=== PATIENT | male | born 1965 | race Caucasian/White ===

== ENCOUNTER 2019-07-17 01:32 | Day surgery (SDC) | payer BC, SELFPAY ==
[2019-07-15 14:35] VITALS: BMI 33.2
[2019-07-17 07:21] VITALS: BP 133/96; PULSE 84; RESP 14; TEMP 36.1; O2SAT 96
[2019-07-17] MEDS: LACTATED RINGERS 1,000 ML 150 ML IV CONT (07:32)
--- NOTE | 2019-07-17 07:36 | WPDANESEPPF ---
Anes - Initial Pre Proc Eval Procedure: Operation Date: 07/17/19 08:30 Proposed Procedures p Screening Colonoscopy - Devin Berman MD Date/Time: 07/17/19 07:36 Surgeon: Devin Berman MD Pre Op Diagnosis: Neoplasm Screening Patient Data Age: 53 Gender: M Height: 5 ft 9 in Weight: 101.1 kg Last Vital Signs Temp 36.1 C L 07/17/19 07:21 Pulse 84 07/17/19 07:21 Resp 14 07/17/19 07:21 BP 133/96 H 07/17/19 07:21 Pulse Ox 96 07/17/19 07:21 Allergies Allergy/AdvReac Type Severity Reaction Status Date / Time No Known Allergies Allergy Unverified 07/17/19 07:15 Home Medications Medication Instructions Recorded Confirmed Type atenolol 50 mg tablet 50 mg PO BID #180 tablet 04/23/19 07/15/19 Rx pravastatin 40 mg tablet 40 mg PO DAILY #90 tablet 04/23/19 07/15/19 Rx famotidine 20 mg tablet 20 mg PO BID tablet 06/05/19 07/15/19 History Patient hx anesthesia problems: none Family hx anesthesia problems: none PMFSH Past Medical History Medical History Dyslipidemia Essential (primary) hypertension GERD without esophagitis Hypertension Family History Family History Other Diabetes mellitus Family history of coronary artery disease Hypertension Social History Social History Smoking status: Never smoker Second hand tobacco smoke exposure: No Alcohol intake: current Substance use: never Substance use type: does not use Gender identity (if verbalized by the patient): Male Anes - Eval Final PreProcedure Day of Procedure 07/17/19 07:36 Patient weight: obese Heart: regular rate and rhythm Lungs: clear to auscultation Airway: Mallampati scale class II Neurological: alert and oriented Last oral intake: >/= 8 hours ASA classification: III Emergent: no Anesthetic plan: proceed Anesthesia type and monitoring: general GIVS and standard monitoring Informed Consent: The patient's anesthetic plan and its attendant risks and benefits were discussed with the patient/family/POA. Questions were solicited and answers provided to the satisfaction of the patient/family/POA.
--- NOTE | 2019-07-17 08:05 | PM.HPGS ---
History of Present Illness History of Present Illness Consent: Risks, benefits, and alternatives have been discussed and questions answered. Patient agrees to proceed with procedure. Chief complaint: Neoplasm Screening Narrative: Vikas Polk is a 53 year old male here for screening colonoscopy Review of Systems Constitutional: Constitutional: Denies headache(s) and Denies weakness Eyes: Eyes: Denies blurry vision ENT: Reports Normal hearing present, Denies headache(s) and Denies neck pain Cardiovascular: Cardiovascular: Denies chest pain and Denies dyspnea Respiratory: Respiratory: Denies dyspnea Gastrointestinal: Gastrointestinal: Reports no additional gastrointestinal complaints Genitourinary: Genitourinary: Denies dysuria Musculoskeletal: Musculoskeletal: Denies neck pain Integumentary/Breasts: Skin/Breast: Denies dry skin Neurologic: Reports Normal hearing present, Denies headache(s) and Denies weakness Psychiatric: Psychiatric: Denies anxiety Endocrine: Endocrine: Denies change in body appearance Hematologic/Lymphatic: Hematologic/Lymphatic: Denies easy bleeding Allergic/Immunologic: Allergic/Immunologic: Denies urticaria PMFSH Past Medical History Medical History Dyslipidemia Essential (primary) hypertension GERD without esophagitis Hypertension Family History Family History Other Diabetes mellitus Family history of coronary artery disease Hypertension Social History Social History Smoking status: Never smoker Second hand tobacco smoke exposure: No Alcohol intake: current Substance use: never Substance use type: does not use Gender identity (if verbalized by the patient): Male Meds Home Medications and Allergies Home Medications Medication Instructions Recorded Confirmed Type atenolol 50 mg tablet 50 mg PO BID #180 tablet 04/23/19 07/15/19 Rx pravastatin 40 mg tablet 40 mg PO DAILY #90 tablet 04/23/19 07/15/19 Rx famotidine 20 mg tablet 20 mg PO BID tablet 06/05/19 07/15/19 History Allergies Allergy/AdvReac Type Severity Reaction Status Date / Time No Known Allergies Allergy Unverified 07/17/19 07:15 Vital Signs Vital Signs - 24 hr 07/17/19 07:21 Temperature 97.0 F L Pulse Rate 84 Respiratory Rate 14 Blood Pressure 133/96 H Pulse Oximetry 96 Exam Const: General: comfortable and no acute distress HENMT: General nose exam: Normal nares present Eyes: General: appearance normal, both eyes and all related structures Neck: Neck: no JVD Resp: Auscultation: clear to auscultation bilaterally Cardio: Rate: regular rate Rhythm: regular rhythm GI: Inspection: non-distended GI Palp: Yes Soft to palpation Skin: General skin exam: normal color Neuro: General: gait normal Speech: normal speech Extrem: General: normal to inspection Psych: Mental Status: mental status grossly normal Assessment and Plan Assessment and plan (1) Encounter for screening colonoscopy: Code(s): Z12.11 - Encounter for screening for malignant neoplasm of colon Status: Acute Assessment and Plan: will proceed with colonoscopy, first one. (2) Essential (primary) hypertension: Code(s): I10 - Essential (primary) hypertension Status: Acute
[2019-07-17 08:30] VITALS: BP 119/85; PULSE 67; RESP 18; O2SAT 93
[2019-07-17 08:40] VITALS: BP 120/84; PULSE 65; RESP 18; O2SAT 95
[2019-07-17 08:50] VITALS: BP 121/89; PULSE 63; RESP 19; O2SAT 96
== END 2019-07-17 09:01 | disposition home or self-care (01) ==
PROVIDERS: PCP Family Medicine; Visit Provider Internal Medicine Gastroenterology
PROC: 0DJD8ZZ Inspection of Lower Intestinal Tract, Via Natural or Artificial Opening Endoscopic (ICD-10-PCS; CPT 45378; principal; 2019-07-17 08:30)
DX: Z12.11 Encounter for screening for malignant neoplasm of colon (principal); D12.5 Benign neoplasm of sigmoid colon; K57.30 Diverticulosis of large intestine without perforation or abscess without bleeding; K64.8 Other hemorrhoids; I10 Essential (primary) hypertension; E78.5 Hyperlipidemia, unspecified; K21.9 Gastro-esophageal reflux disease without esophagitis; E66.9 Obesity, unspecified; Z68.32 Body mass index [BMI] 32.0-32.9, adult
CPT/HCPCS: 45385; 88305; J2704; J7120

== ENCOUNTER 2020-04-01 01:01 | Outpatient (CLI) | payer BC, SELFPAY ==
[2020-04-01 18:39] LABS: SARS-CoV-2 RNA PCR Negative
== END 2020-04-01 01:02 | disposition home or self-care (01) ==
LOC: ANHCOVIDDT 01:01
PROVIDERS: PCP Family Medicine; Visit Provider Internal Medicine Gastroenterology
DX: Z01.812 Encounter for preprocedural laboratory examination (principal); Z20.828 Contact with and (suspected) exposure to other viral communicable diseases
CPT/HCPCS: 87635; C9803; U0003

== ENCOUNTER 2020-04-03 01:10 | Day surgery (SDC) | payer BC, SELFPAY ==
[2020-03-30 13:30] VITALS: BMI 33.3
[2020-04-03 06:50] VITALS: BP 142/81; PULSE 60; TEMP 36.3; O2SAT 99
[2020-04-03] MEDS: LACTATED RINGERS 1,000 ML 150 ML IV CONT (07:03)
--- NOTE | 2020-04-03 07:22 | WPDANESEPPF ---
Anes - Initial Pre Proc Eval Procedure: Operation Date: 04/03/20 08:00 Proposed Procedures p Esophagogastroduodenoscopy - Caesar Harvey MD Date/Time: 04/03/20 07:22 Surgeon: Caesar Harvey MD Pre Op Diagnosis: Reflux Patient Data Age: 54 Gender: M Height: 5 ft 9 in Weight: 103.2 kg Last Vital Signs Temp 97.3 F L 04/03/20 06:50 Pulse 60 04/03/20 06:50 BP 142/81 H 04/03/20 06:50 Pulse Ox 99 04/03/20 06:50 Allergies Allergy/AdvReac Type Severity Reaction Status Date / Time No Known Allergies Allergy Verified 04/03/20 06:49 Home Medications Medication Instructions Recorded Confirmed Type atenolol 50 mg PO BID 03/30/20 03/30/20 History pravastatin 40 mg PO DAILY 03/30/20 03/30/20 History Patient hx anesthesia problems: none Family hx anesthesia problems: none PMFSH Past Medical History Medical History (Updated 07/17/19 @ 08:06 by Devin Berman MD) Dyslipidemia Encounter for screening colonoscopy Essential (primary) hypertension GERD without esophagitis Hypertension Family History Family History Other Diabetes mellitus Family history of coronary artery disease Hypertension Social History Social History Smoking status: Never smoker Second hand tobacco smoke exposure: No Alcohol intake: current Drinks per week: 3 Substance use: never Substance use type: does not use Living arrangements: with family Gender identity (if verbalized by the patient): Male Spiritual care concerns: No Anes - Eval Final PreProcedure Day of Procedure 04/03/20 07:22 Patient weight: obese Heart: regular rate and rhythm Lungs: clear to auscultation Airway: Mallampati scale class II Neurological: alert and oriented Last oral intake: >/= 8 hours ASA classification: III Emergent: no Anesthetic plan: proceed Anesthesia type and monitoring: general GIVS and standard monitoring Informed Consent: The patient's anesthetic plan and its attendant risks and benefits were discussed with the patient/family/POA. Questions were solicited and answers provided to the satisfaction of the patient/family/POA.
--- NOTE | 2020-04-03 07:32 | PM.HPGS ---
History of Present Illness History of Present Illness Consent: Risks, benefits, and alternatives have been discussed and questions answered. Patient agrees to proceed with procedure. Chief complaint: Reflux Narrative: Vikas Polk is a 54 year old male who has been suffering from acid reflux for about 4 years. He initially had been using ranitidine but when it was taken off the market he was switched to omeprazole. It does relieve his symptoms most of the time. In fact when his medicine ran out 2 weeks ago he began have severe heartburn again. Typically he will have burning in his chest in even regurgitate acid into his throat. Additionally, he often has a tight feeling in his neck with the sensation of a need to swallow. He denies dysphagia. His father young from cancer of the esophagus PMFSH Past Medical History Medical History Dyslipidemia Encounter for screening colonoscopy Essential (primary) hypertension GERD without esophagitis Hypertension Family History Family History Other Diabetes mellitus Family history of coronary artery disease Hypertension Social History Social History Smoking status: Never smoker Second hand tobacco smoke exposure: No Alcohol intake: current Drinks per week: 3 Substance use: never Substance use type: does not use Living arrangements: with family Gender identity (if verbalized by the patient): Male Spiritual care concerns: No Meds Home Medications and Allergies Home Medications Medication Instructions Recorded Confirmed Type atenolol 50 mg PO BID 03/30/20 03/30/20 History pravastatin 40 mg PO DAILY 03/30/20 03/30/20 History Allergies Allergy/AdvReac Type Severity Reaction Status Date / Time No Known Allergies Allergy Verified 04/03/20 06:49 Vital Signs Vital Signs - 24 hr 04/03/20 06:50 Temperature 36.3 C L Pulse Rate 60 Blood Pressure 142/81 H Pulse Oximetry 99 Exam Const: General: alert Orientation/consciousness: patient oriented x3 Resp: Auscultation: clear to auscultation bilaterally Cardio: Rhythm: regular rhythm GI: GI Palp: Yes Soft to palpation and No Tenderness to palpation present (GI) Neuro: General: patient oriented x3 Assessment and Plan Assessment and plan (1) GERD without esophagitis: Code(s): K21.9 - Gastro-esophageal reflux disease without esophagitis Status: Acute Assessment and Plan: EGD with possible biopsy or dilatation or cautery.
[2020-04-03 08:14] VITALS: BP 110/75; PULSE 59; RESP 18; O2SAT 100
[2020-04-03 08:24] VITALS: BP 115/72; PULSE 53; RESP 20; O2SAT 100
[2020-04-03 08:34] VITALS: BP 118/80; PULSE 55; RESP 20; O2SAT 100
== END 2020-04-03 09:08 | disposition home or self-care (01) ==
PROVIDERS: PCP Family Medicine; Visit Provider Internal Medicine Gastroenterology
PROC: 0DJ08ZZ Inspection of Upper Intestinal Tract, Via Natural or Artificial Opening Endoscopic (ICD-10-PCS; CPT 43235; principal; 2020-04-03 08:00)
DX: K21.9 Gastro-esophageal reflux disease without esophagitis (principal); K29.70 Gastritis, unspecified, without bleeding; K22.8 Other specified diseases of esophagus; I10 Essential (primary) hypertension; E78.5 Hyperlipidemia, unspecified; E66.9 Obesity, unspecified; Z68.33 Body mass index [BMI] 33.0-33.9, adult
CPT/HCPCS: 43239; 87081; 88305; J2704; J7120

== ENCOUNTER 2020-05-28 09:54 | Outpatient (NON) | payer BC, SELFPAY ==
[2020-05-29 00:26] LABS: SARS-CoV-2 RNA PCR Negative
== END 2020-05-28 09:55 ==
PROVIDERS: Visit Provider Family Medicine
DX: R05 Cough (principal); Z20.828 Contact with and (suspected) exposure to other viral communicable diseases
CPT/HCPCS: 87635; C9803; U0003

== ENCOUNTER 2020-05-28 11:21 | Outpatient (CLI) | payer BC, SELFPAY ==
--- NOTE | 2020-05-28 | ECG_ITS ---
Measurements Intervals [place] Rate: 62 P: 20 UT: 163 QRS: 36 QRSD: 124 T: 17 QT: 419 QTc: 427 Interpretive Statements SINUS RHYTHM INCOMPLETE RIGHT BUNDLE BRANCH BLOCK BORDERLINE ECG Electronically Signed On 05-28-2020 12:21:41 [employer] by Francisco Javier Thrasher D.O.
--- NOTE | ~2020-05-28 | XR_ITS ---
EXAMINATION: XR chest 2V DATE: 05/28/2020 11:51 INDICATION: Chest pain. Cough and shortness of breath. Chest tightness. TECHNIQUE: Frontal and lateral views of the chest were obtained. COMPARISON: Chest 2 views 09/06/2012 FINDINGS: The chest demonstrates clear lungs without pneumonia, pleural effusion, or pneumothorax. Th e heart size is normal. IMPRESSION: 1. No acute cardiopulmonary disease. Reviewed, dictated and finalized at location B. ERS COMPENSATION LEGAL SECRETARY
== END 2020-05-28 11:22 | disposition home or self-care (01) ==
PROVIDERS: PCP Family Medicine; Visit Provider Family Medicine
DX: R07.9 Chest pain, unspecified (principal); I45.10 Unspecified right bundle-branch block
CPT/HCPCS: 71046; 93005

== ENCOUNTER → 2021-07-01 10:24 | Outpatient (CLI) | payer BC, SELFPAY ==
[2021-07-01 20:40] LABS: SARS-CoV-2 RNA PCR Positive
== END ==
PROVIDERS: PCP Family Medicine; Visit Provider Family Medicine
DX: U07.1 COVID-19 (principal)
CPT/HCPCS: C9803; U0003; U0005

== ENCOUNTER 2022-05-28 12:48 | Inpatient (IN) | payer BC, SELFPAY ==
[2022-05-28] VITALS (28 sets, daily range): BP systolic 115–146; BP diastolic 70–82; PULSE 48–72; RESP 11–21; TEMP 36.6–36.8; O2SAT 94–100; BMI 32.8
--- NOTE | ~2022-05-28 | XR_ITS ---
EXAMINATION: XR chest 2V DATE: 05/28/2022 13:13 INDICATION: Chest pain TECHNIQUE: PA and lateral views of the chest were obtained. COMPARISON: Chest radiograph dated 05/28/2020 FINDINGS: The lungs remain clear with no focal airspace opacities, pulmonary edema, pleural effusion or pneumot horax. The cardiomediastinal silhouette is normal. Mild thoracic spondylosis. IMPRESSION: 1. No acute cardiopulmonary disease. Reviewed, dictated and finalized at location A. NCILIATION ANALYST
--- NOTE | 2022-05-28 12:49 | ECG_ITS ---
Measurements Intervals [place] Rate: 61 P: 21 WV: 151 QRS: 34 QRSD: 116 T: 24 QT: 423 QTc: 427 Interpretive Statements SINUS RHYTHM WITH OCCASIONAL VENTRICULAR PREMATURE COMPLEXES MINOR RV CONDUCTION ABNORMALITY COMPARED TO ECG 05/28/2020 11:57:59 PVC IS NOTED Electronically Signed On 05-29-2022 8:20:35 [employer] by Amador Hicks M.D.
[2022-05-28 13:06] LABS: Basophils Absolute Auto 0.1 K/mm3 (0.0-0.1); Basophils Percent Auto 0.8 % (0.2-1.2); Eosinophils Absolute Auto 0.2 K/mm3 (0-0.3); Eosinophils Percent Auto 2.2 % (0-4.4); Hematocrit 47.8 % (42.0-52.0); Hemoglobin 16.1 g/dL (14.0-18.0); Immature Granulocyte Absolute 0.02 K/mm3 (0.00-0.031); Immature Granulocyte Percent A 0.3 % (0-0.5); Lymphocytes Absolute Auto 2.25 K/mm3 (0.9-3.2); Lymphocytes Percent Auto 31.4 % (18.3-44.2); Mean Corpuscular HGB Conc 33.7 g/dl (32-36); Mean Corpuscular Hemoglobin 32.3 pg (26-34); Mean Platelet Volume 10.6 fl (7.4-10.4); Monocytes Absolute Auto 0.5 K/mm3 (0.1-0.6); Monocytes Percent Auto 6.7 % (2.6-8.5); Neutrophils Absolute Auto 4.2 K/mm3 (1.3-6.7); Neutrophils Percent Auto 58.6 % (45.5-73.1); Platelet Count Result 146 k/mm3 (150-375); Red Blood Count 4.98 M/mm3 (4.6-6.20); Red Cell Distribution Width 14.4 % (11.5-14.5); White Blood Count 7.2 K/mm3 (4.5-10.0)
[2022-05-28] MEDS: ASPIRIN 81 MG CHEWABLE TABLET 324 MG PO (13:16)
[2022-05-28 13:17] LABS: INR 1.2; Partial Thromboplastin Time 30.9 SECONDS (22.3-36.8); Prothrombin Time 14.4 Seconds (11.1-14.7)
[2022-05-28 13:24] LABS: Alanine Aminotransferase 73 U/L (6-50); Albumin Level 4.3 g/dL (3.5-5.1); Alkaline Phosphatase 135 U/L (38-126); Anion Gap 6 mmol/L (8-16); Aspartate Amino Transferase 121 U/L (17-59); Bilirubin,Total 1.2 mg/dL (0.2-1.3); Blood Urea Nitrogen 17 mg/dL (9-20); Calcium 9.2 mg/dL (8.4-10.2); Carbon Dioxide 28 mmol/L (22-30); Chloride 106 mmol/L (98-107); Estimated CRCL calculation 105 ml/min; Estimated Glomerular Filt Rate > 60; Glucose 93 mg/dL (65-110); Lipase 319 U/L (23-300); Potassium 4.1 mmol/L (3.4-5.0); Sodium 140 mmol/L (137-145)
[2022-05-28 13:35] LABS: Troponin I < 0.012 ng/mL (0.000-0.034)
--- NOTE | 2022-05-28 14:01 | ED.CHESTPAIN ---
HPI - Chest Pain General Chief Complaint: Chest Pain Stated Complaint: chest pain Time Seen by Provider: 05/28/22 13:26 Source: patient and RN notes reviewed Mode of arrival: ambulatory Limitations: no limitations History of Present Illness HPI narrative: This is a 56 year old male with history of hyperlipidemia and hypertension who presents for evaluation of chest discomfort. PAtient states around noon he was performing yard work when he developed chest discomfort. He describes burning sensation across his chest. He states his discomfort was associated with sob but denies dizziness or diaphoresis. His pain also radiates to left today. He states his discomfort resolved after rest. He reports having intermittent episodes over the past 1-2 weeks with walking up stairs or exertion but states the discomfort never radiated to his should until today. He denies heart disease. He states he has an ECHO within the past couple of years but denies stress test. He is not aware of family history. Related Data Home Medications Medication Instructions Recorded Confirmed atenolol 50 mg tablet 50 mg PO BID 03/30/20 03/30/20 pravastatin 40 mg tablet 40 mg PO DAILY 03/30/20 03/30/20 Allergies Allergy/AdvReac Type Severity Reaction Status Date / Time No Known Allergies Allergy Verified 04/03/20 06:49 Review of Systems Review of Systems: All systems reviewed & are unremarkable except as noted in HPI and below Constitutional: Constitutional: Denies chills, Denies fatigue and Denies fever(s) Cardiovascular: Cardiovascular: Reports chest pain, Denies rapid heart rate, Reports radiating jaw, neck or arm pain and Denies slow heart rate Respiratory: Respiratory: Denies chest congestion, Denies cough, Reports dyspnea and Denies wheezing Gastrointestinal: Gastrointestinal: Denies abdominal pain, Denies nausea and Denies vomiting Musculoskeletal: Musculoskeletal: Denies back pain Neurologic: Denies syncope, Denies headache(s) and Denies numbness PMFSH Past Medical History Medical History (Updated 05/28/22 @ 16:23 by Su Culver MD) Dyslipidemia Encounter for screening colonoscopy Essential (primary) hypertension GERD without esophagitis Hypertension Surgical History Surgical History (Updated 05/28/22 @ 16:41 by Catrina Henson NP) No pertinent past surgical history Family History Family History Other Diabetes mellitus Family history of coronary artery disease Hypertension Social History Social History (Updated 05/28/22 @ 16:42 by Catrina Henson NP) Social History: [employer] Smoking status: Never smoker Second hand tobacco smoke exposure: No Alcohol intake: current Drinks per week: 3 Alcohol use details: 1 glass of mixed drink w/ Vodka consumed weekly. Substance use: never Substance use type: does not use Gender identity (if verbalized by the patient): Male Spiritual care concerns: No Exam Const: General: no acute distress and alert Nutritional Appearance: well nourished Orientation/consciousness: patient oriented x3 Limitations: no limitations HENMT: Head: normal to inspection Throat: posterior oropharynx normal Eyes: EOM: EOMs intact bilaterally Chest: Chest palpation & inspection: normal inspection of the chest Resp: Effort & Inspection: normal respiratory effort Auscultation: clear to auscultation bilaterally Cardio: Rate: regular rate Rhythm: regular rhythm Heart sounds: no murmurs GI: GI Palp: Yes Soft to palpation, No Tenderness to palpation present (GI), No Guarding due to palpation present (GI) and No Rigid due to palpation Auscultation: normal bowel sounds Back/Spine/Pelvis: Back: no CVA tenderness Skin: General skin exam: normal color Neuro: General: patient oriented x3, moves all extremities and CN's II-XI intact bilaterally Extrem: General: normal to inspection Psych: Mental St
--- NOTE | 2022-05-28 16:31 | PC.NURSE ---
heart healthy food tray ordered
--- NOTE | 2022-05-28 16:38 | PM.IMHP ---
H&P: HPI History of Present Illness Date/Time: 05/28/22 16:38 Chief Complaint: Chest pain Narrative: This is a 56-year-old male patient who has a history of hyperlipidemia and hypertension. The patient has had no prior history of any coronary artery disease. The patient states that around noon he was performing yd work when he developed some chest discomfort. Patient stated he had a burning discomfort across the top of his chest. He did not have any nausea vomiting but he did have shortness of breath. He also had dizziness and diaphoresis. The patient stated that he gets this discomfort quite often with activity. He has had intermittent episodes over the last 1-2 weeks with walking up stairs and exertion. He does not become nauseated but does become diaphoretic at times. Patient was given morphine and nitro as well as aspirin in the emergency room. Chest x-ray was read as no acute cardiopulmonary disease. Troponins are negative x2. Lipase is 319. Influenza A/B and COVID are negative. The patient had a stress test in 2012 which was found to be negative. The patient is being admitted to observation status on the date of service of 05/28/2022. Review of Systems Review of Systems: See HPI All systems reviewed & are unremarkable except as noted in HPI and below Constitutional: Constitutional: Reports as per HPI and Reports no additional constitutional complaints Eyes: Eyes: Reports as per HPI and Reports no additional eye complaints ENT: Reports system reviewed and no additional complaints, except as documented and Reports Normal hearing present Cardiovascular: Cardiovascular: Reports no additional cardiovascular complaints Respiratory: Respiratory: Reports no additional respiratory complaints and Reports no additional respiratory complaints Gastrointestinal: Gastrointestinal: Reports as per HPI and Reports no additional gastrointestinal complaints Musculoskeletal: Musculoskeletal: Reports no additional musculoskeletal complaints Integumentary/Breasts: Skin/Breast: Reports system reviewed and no additional complaints, except as docu and Reports as per HPI Neurologic: Reports system reviewed and no additional complaints, except as documented, Reports as per HPI and Reports Normal hearing present Psychiatric: Psychiatric: Reports no additional psychiatric complaints and Reports as per HPI Endocrine: Endocrine: Reports no additional endocrine complaints Hematologic/Lymphatic: Hematologic/Lymphatic: Reports no additional hematologic/lymphatic complaints Allergic/Immunologic: Allergic/Immunologic: Reports no additional allergic/immunologic complaints PMFSH Past Medical History Medical History Dyslipidemia Encounter for screening colonoscopy Essential (primary) hypertension GERD without esophagitis Hypertension Surgical History Surgical History (Updated 05/28/22 @ 20:39 by Catrina Henson NP) History of esophagogastroduodenoscopy (EGD) Family History Family History Other Diabetes mellitus Family history of coronary artery disease Hypertension Social History Social History (Updated 05/28/22 @ 20:42 by Catrina Henson NP) Social History: The patient lives with his . His is the durable power state's attorney for healthcare. He has 2 children. 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 Lifelong nonsmoker. He denies any marijuana or illicit drugs. Patient has a weekly mixed drink. Code status full code Smoking status: Never smoker Second hand tobacco smoke exposure: No Alcohol intake: current Drinks per week: 3 Alcohol use details: 1 glass of mixed drink w/ Vodka consumed weekly. Substance use: never Substance use type: does not use Gender identity (if verbalized by the patient): Male Spiritual care concerns: No Meds Home Medications and Allergies Home
[2022-05-28 16:50] LABS: Troponin I < 0.012 ng/mL (0.000-0.034)
[2022-05-28 16:59] LABS: Influenza A QL RT-PCR Negative (Negative); Influenza B QL RT-PCR Negative (Negative); SARS-CoV-2 RNA PCR Negative
[2022-05-28 19:44] LABS: Troponin I < 0.012 ng/mL (0.000-0.034)
[2022-05-28] MEDS: PANTOPRAZOLE SODIUM IV 40 MG VIAL IV PUSH (23:10)
[2022-05-29] VITALS (10 sets, daily range): BP systolic 120–131; BP diastolic 75–82; PULSE 49–70; RESP 16–18; TEMP 35.7–36.6; O2SAT 97–98
[2022-05-29 06:14] LABS: Basophils Percent Auto 0.9 % (0.2-1.2); Eosinophils Absolute Auto 0.1 K/mm3 (0-0.3); Eosinophils Percent Auto 3.2 % (0-4.4); Hematocrit 46.9 % (42.0-52.0); Hemoglobin 15.6 g/dL (14.0-18.0); Immature Platelet Fraction Pct 4.7 % (0.9-11.2); Lymphocytes Absolute Auto 1.68 K/mm3 (0.9-3.2); Mean Corpuscular HGB Conc 33.3 g/dl (32-36); Mean Corpuscular Hemoglobin 32.6 pg (26-34); Mean Corpuscular Volume 98.1 fl (80-100); Mean Platelet Volume 10.7 fl (7.4-10.4); Monocytes Absolute Auto 0.3 K/mm3 (0.1-0.6); Monocytes Percent Auto 6.7 % (2.6-8.5); Neutrophils Absolute Auto 2.2 K/mm3 (1.3-6.7); Neutrophils Percent Auto 50.2 % (45.5-73.1); Platelet Count Result 111 k/mm3 (150-375); Red Blood Count 4.78 M/mm3 (4.6-6.20); Red Cell Distribution Width 14.5 % (11.5-14.5); White Blood Count 4.3 K/mm3 (4.5-10.0)
[2022-05-29 06:32] LABS: Alanine Aminotransferase 60 U/L (6-50); Albumin Level 3.8 g/dL (3.5-5.1); Alkaline Phosphatase 124 U/L (38-126); Anion Gap 4 mmol/L (8-16); Aspartate Amino Transferase 95 U/L (17-59); Bilirubin,Total 1.4 mg/dL (0.2-1.3); Blood Urea Nitrogen 16 mg/dL (9-20); Calcium 8.6 mg/dL (8.4-10.2); Carbon Dioxide 28 mmol/L (22-30); Chloride 106 mmol/L (98-107); Estimated CRCL calculation 95 ml/min; Estimated Glomerular Filt Rate > 60; Glucose 88 mg/dL (65-110); Lipase 224 U/L (23-300); Magnesium 2.2 mg/dL (1.6-2.3); Sodium 138 mmol/L (137-145)
[2022-05-29] MEDS: PANTOPRAZOLE SODIUM IV 40 MG VIAL IV PUSH ×2 (08:45→20:16)
[2022-05-29] MEDS: ENOXAPARIN 40 MG/0.4 ML SYRINGE SUB-Q (08:45)
--- NOTE | 2022-05-29 11:40 | PM.CNCAR ---
Assessment and Plan Assessment and plan (1) Chest pain: Code(s): R07.9 - Chest pain, unspecified Status: Acute Plan This is a 56-year-old man with no previous history of coronary artery disease presenting with the onset of typical angina pectoris for about 2 weeks or so. Risk factors of course are hypertension and dyslipidemia both of which he says are under good control. He should undergo diagnostic testing for and coronary disease. Given the typical nature of his symptoms I would recommend an angiogram. The procedure and its details and risks were discussed with the patient he is agreeable and we will schedule this for tomorrow likely in the afternoon Amador Hicks MD [facility] History of Present Illness History of Present Illness Consult date/time: 05/29/22 11:40 Reason For Visit: Stable Angina Narrative: This is a 56-year-old man I am seeing at the request of the hospitalist because of chest pain. The patient was seen in the emergency room yesterday evening and then admitted to the hospital for further evaluation and management. He has no prior history of coronary artery disease or any cardiac problems and I have not seen him in the past. He reports that for about 2-3 weeks he has noticed the onset of exertional chest discomfort when he tries to carry on moderate or more vigorous activity sometimes with more mild activity levels. Describes a retrosternal burning sensation that tends to resolve fairly quickly with a couple of minutes of rest. The symptoms have not occurred at rest or with minimal activity. Yesterday he was outside in his yd putting up some Parris lights, [place]en decorations climbing up and down some ladders had this discomfort he stopped what he was doing and decided that he should come to the hospital for evaluation. He does not have any symptoms of palpitations exertional dyspnea orthopnea PND edema or palpitations. His 12 lead electrocardiogram and troponin levels are normal. He has a history of hypertension and dyslipidemia no history of diabetes no family history of coronary disease that he can recall. Both of his parents at a young age his father of a malignancy his mother of a intracerebral hemorrhage. He is a nonsmoker. 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 Review of Systems Constitutional: Constitutional: Reports no additional constitutional complaints Eyes: Eyes: Reports no additional eye complaints ENT: Reports system reviewed and no additional complaints, except as documented Cardiovascular: Cardiovascular: Reports as per HPI Respiratory: Respiratory: Reports no additional respiratory complaints Gastrointestinal: Gastrointestinal: Reports no additional gastrointestinal complaints Musculoskeletal: Musculoskeletal: Reports no additional musculoskeletal complaints Integumentary/Breasts: Skin/Breast: Reports system reviewed and no additional complaints, except as docu Neurologic: Reports system reviewed and no additional complaints, except as documented Endocrine: Endocrine: Reports no additional endocrine complaints Hematologic/Lymphatic: Hematologic/Lymphatic: Reports no additional hematologic/lymphatic complaints Allergic/Immunologic: Allergic/Immunologic: Reports no additional allergic/immunologic complaints PMFSH Past Medical History Medical History Dyslipidemia Encounter for screening colonoscopy Essential (primary) hypertension GERD without esophagitis Hypertension Surgical History Surgical History (Updated 05/28/22 @ 20:39 by Catrina Henson NP) History of esophagogastroduodenoscopy (EGD) Family History Family History Other Diabetes mellitus Family history of coronary artery disease Hypertension Social History Social History (Updated 05/28/22 @ 20:42 by Catrian Henson NP) Social History: The patient lives wit
--- NOTE | 2022-05-29 14:47 | PM.IMPN ---
Progress Note: A&P Assessment and Plan (1) Chest pain: Code(s): R07.9 - Chest pain, unspecified Status: Acute Assessment and Plan: -the patient's troponin are negative x2 -the patient has discomfort with exertion. -the patient had a stress test in 2012 which was negative. -the patient stated that for the last week or 2 with any exertion he has had the burning sensation across his chest. -chest x-ray shows no acute cardiopulmonary disease. -the ED provider did consult Cardiology. -the patient was started on a daily aspirin. The patient is already on atenolol and pravastatin. -an echo has been ordered for tomorrow. -I did not order a stress test as it sounds like the patient is having chest pain with exertion. 05/29/2022 interval history: 56-year-old male presented with complaint of exertional chest for 2 weeks he presented emergency depart further evaluation 3 sets of cardiac enzymes are negative patient seen by Cardiology recommended patient will benefit with cardiac catheterization to further evaluate, will follow-up and further recommendation to follow (2) Essential (primary) hypertension: Code(s): I10 - Essential (primary) hypertension Status: Acute Assessment and Plan: Continue with atenolol (3) GERD without esophagitis: Code(s): K21.9 - Gastro-esophageal reflux disease without esophagitis Status: Acute Assessment and Plan: IV Protonix -the patient has had EGDs in the past that show gastritis. (4) Dyslipidemia: Code(s): E78.5 - Hyperlipidemia, unspecified Status: Acute Assessment and Plan: -continue with pravastatin Subjective Date/time seen: 05/29/22 14:47 Chest pain HPI-Narrative: This is a 56-year-old male patient who has a history of hyperlipidemia and hypertension.? The patient has had no prior history of any coronary artery disease.? The patient states that around noon he was performing yd work when he developed some chest discomfort.? Patient stated he had a burning discomfort across the top of his chest.? He did not have any nausea vomiting but he did have shortness of breath.? He also had dizziness and diaphoresis.? The patient stated that he gets this discomfort quite often with activity.? He has had intermittent episodes over the last 1-2 weeks with walking up stairs and exertion.? He does not become nauseated but does become diaphoretic at times.? Patient was given morphine and nitro as well as aspirin in the emergency room.? Chest x-ray was read as no acute cardiopulmonary disease.? Troponins are negative x2.? Lipase is 319.? Influenza A/B and COVID are negative.? The patient had a stress test in 2012 which was found to be negative.? The patient is being admitted to observation status on the date of service of 05/28/2022. 05/29/2022 interval history: 56-year-old male presented with complaint of exertional chest for 2 weeks he presented emergency depart further evaluation 3 sets of cardiac enzymes are negative patient seen by Cardiology recommended patient will benefit with cardiac catheterization to further evaluate, will follow-up and further recommendation to follow Review of Systems Review of Systems: All systems reviewed & are unremarkable except as noted in HPI and below Exam Narrative: Patient is comfortable, NAD HEENT: eyes are clear and none icteric LUNGS:CTA HEART: RR S1S2 ABD: BS+, Soft and nontender Lower extremities: no edema SKIN: nonjaundiced Neuro: grossly intact. Objective Data Vital Signs Vital Signs: Vital Signs - 24 hr 05/28/22 14:53 05/28/22 15:06 05/28/22 15:26 Temperature Pulse Rate 61 63 51 L Respiratory Rate 18 16 14 Blood Pressure Pulse Oximetry 95 96 96 Oxygen Delivery 05/28/22 15:41 05/28/22 15:45 05/28/22 15:46 Temperature Pulse Rate 56 L 53 L 55 L Respiratory Rate 18 11 L 13 Blood Pressure 124/73 Pulse Oximetry 97 96 96 Oxygen Delivery 05/28/22 16:06 05/19
[2022-05-30] VITALS (26 sets, daily range): BP systolic 119–148; BP diastolic 75–91; PULSE 57–76; RESP 12–21; TEMP 36.6–37; O2SAT 95–98
--- NOTE | 2022-05-30 06:00 | ECHO_ITS ---
Patient Info Name: Vikas Polk Age: 56 years : 1965 Gender: Male Ht: 69 in Wt: 222 lbs BSA: 2.25 m2 HR: 79 bpm BP: 119 / 76 mmHg Heart Rhythm: Sinus Rhythm Technical Quality: Good Exam Date: 05/30/2022 8:59 AM Exam Location: [facility] Patient Status: Inpatient Admit Date: 05/29/2022 Staff Ordering Physician: Su Culver MD Equipment Planner: Mahi Gan RDCS Attending Provider: Joshua Reynolds MD Referring Physician: Palomo WHITE; Exam Type: CA echo doppler color flow Study Info Indications R07.9 - Chest pain, unspecified I20.9 - Angina pectoris, unspecified Complete two-dimensional, color flow and Doppler transthoracic echocardiogram is performed. Summary 1. Complete two-dimensional, color flow and Doppler transthoracic echocardiogram is performed. 2. Normal left ventricular size thickness and systolic function with grade 1 diastolic noncompliance. 3. Mildly enlarged left atrium. 4. Trivial amount of mitral regurgitation. Left Ventricle Left ventricular chamber dimension is normal. Left ventricular systolic function is normal, estimated at 60-65%. The left ventricular diastolic function is normal. Right Ventricle Right ventricular chamber dimension is normal. Left Atria Left atrial chamber dimension is mildly enlarged. Right Atria Right atrial chamber dimension is normal. Aortic Valve The aortic valve is normal. Pulmonic Valve The pulmonic valve is normal. Mitral Valve The mitral valve has normal leaflets. There is trace mitral valve regurgitation. Tricuspid Valve The tricuspid valve leaflets are normal. Pericardium/Pleural The pericardium appears normal. Aorta The aortic root size at the sinus of Valsalva is normal. Left Ventricular Outflow Tract Name Value Normal LVOT 2D LVOT Diameter 2.3 cm LVOT Doppler LVOT Peak Gradient 3 mmHg LVOT Mean Gradient 1 mmHg LVOT VTI 19 cm LVOT VTI/AV VTI Ratio 0.8 LVOT Stroke Volume 81 ml Pulmonic Valve Name Value Normal RVOT Doppler RVOT Peak Gradient 2 mmHg PV Doppler PV Peak Gradient 7 mmHg Mitral Valve Name Value Normal MV Doppler MV Decel Cataño 468 cm/s2 MV PHT 43 ms MV Area (PHT) 5.1 cm2 4.0-5.0 MV Diastolic Function
[2022-05-30] MEDS: ASPIRIN 81 MG CHEWABLE TABLET PO (08:38)
[2022-05-30] MEDS: PANTOPRAZOLE SODIUM IV 40 MG VIAL IV PUSH ×2 (08:39→20:14)
[2022-05-30] MEDS: atenoloL 50 MG TABLET PO ×2 (08:39→17:11)
[2022-05-30 08:55] LABS: Hematocrit 49.6 % (42.0-52.0); Hemoglobin 16.4 g/dL (14.0-18.0); Immature Platelet Fraction Pct 4.4 % (0.9-11.2); Mean Corpuscular HGB Conc 33.1 g/dl (32-36); Mean Corpuscular Hemoglobin 32.3 pg (26-34); Mean Corpuscular Volume 97.6 fl (80-100); Mean Platelet Volume 10.1 fl (7.4-10.4); Platelet Count Result 117 k/mm3 (150-375); Red Blood Count 5.08 M/mm3 (4.6-6.20); Red Cell Distribution Width 14.3 % (11.5-14.5); White Blood Count 4.3 K/mm3 (4.5-10.0)
[2022-05-30 08:58] LABS: Anion Gap 5 mmol/L (8-16); Blood Urea Nitrogen 15 mg/dL (9-20); Calcium 8.8 mg/dL (8.4-10.2); Carbon Dioxide 28 mmol/L (22-30); Chloride 107 mmol/L (98-107); Estimated CRCL calculation 95 ml/min; Estimated Glomerular Filt Rate > 60; Glucose 98 mg/dL (65-110); Magnesium 2.2 mg/dL (1.6-2.3); Potassium 4.1 mmol/L (3.4-5.0); Sodium 140 mmol/L (137-145)
--- NOTE | 2022-05-30 11:36 | WPDMODSED ---
Moderate Sedation Note-Pt Data Patient Data Diagnosis: exertional chest pain typical of angina Present Complaint: exertional chest pain Procedure to be performed/Plan: left heart catheterization Allergies Allergy/AdvReac Type Severity Reaction Status Date / Time No Known Allergies Allergy Verified 04/03/20 06:49 Home Medications Medication Instructions Recorded Confirmed Type atenolol 50 mg tablet 50 mg PO BID 03/30/20 05/28/22 History pravastatin 40 mg tablet 40 mg PO DAILY 03/30/20 05/28/22 History losartan 50 mg tablet 50 mg PO QAM 05/28/22 05/28/22 History omeprazole 40 mg capsule,delayed 40 mg PO QAM 05/28/22 05/28/22 History release Current Medications: Active Medications Aspirin (Aspirin 81 Mg Chewable Tablet) 81 mg PO DAILY@0800 [facility] Last Admin: 05/30/22 08:38 Dose: 81 mg Atenolol (Atenolol 50 Mg Tablet) 50 mg PO BID [facility] Last Admin: 05/30/22 08:39 Dose: 50 mg Enoxaparin Sodium (Enoxaparin 40 Mg/0.4 Ml Syringe) 40 mg SUB-Q DAILY [facility] Last Admin: 05/30/22 08:35 Dose: Not Given Losartan Potassium (Losartan Potassium 50 Mg Tablet) 50 mg PO QPM [facility] Morphine Sulfate (Morphine Sulfate (*Crx) 4 Mg/Ml Inj) 4 mg IV PUSH Q2H PRN PRN Reason: Pain Rated 7-10 Nitroglycerin (Nitroglycerin Sl 0.4 Mg Tablet) 0.4 mg SUBLINGUAL Q5MIN PRN PRN Reason: Chest Pain Pantoprazole Sodium (Pantoprazole Sodium Iv 40 Mg Vial) 40 mg IV PUSH Q12HR [facility] Last Admin: 05/30/22 08:39 Dose: 40 mg Perflutren Lipid Microsphere (Perflutren Lipid Microspheres 1.5 Ml Vial Diluted To 10 Ml Total Volume) 0 ml IV PUSH ONCE PRN; Protocol PRN Reason: adequate visualization Stop: 05/30/22 16:11 Pravastatin Sodium (Pravastatin Sodium 20 Mg Tablet) 40 mg PO QPM [facility] Sedation/Anesthesia: No previous sedation/anesthesia problems (including family history). [facility] Past Medical History Medical History Dyslipidemia Encounter for screening colonoscopy Essential (primary) hypertension GERD without esophagitis Hypertension Surgical History Surgical History (Updated 05/28/22 @ 20:39 by Catrina Henson NP) History of esophagogastroduodenoscopy (EGD) Family History Family History Other Diabetes mellitus Family history of coronary artery disease Hypertension Social History Social History (Updated 05/28/22 @ 20:42 by Catrina Henson NP) Social History: The patient lives with his . His is the durable power network consultant for healthcare. He has 2 children. 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 Lifelong nonsmoker. He denies any marijuana or illicit drugs. Patient has a weekly mixed drink. Code status full code Smoking status: Never smoker Second hand tobacco smoke exposure: No Alcohol intake: current Drinks per week: 3 Alcohol use details: 1 glass of mixed drink w/ Vodka consumed weekly. Substance use: never Substance use type: does not use Lack of Transportation: No Lack of Food: Never True Current Housing: I Have Housing Concerned About Future Housing: No Difficulty Paying Gas/Electric Bills: No Difficulty Paying for Meds: No Currently Unemployed: No Education: High School Diploma/GED Difficulty w/ Childcare or Family Care: No Gender identity (if verbalized by the patient): Male Spiritual care concerns: No Mod Sed Physical Exam Physical Exam Pre Procedural Exam: Normal: Throat, Airway, Lungs, Heart Size, Heart Rate, Heart Rhythm, Neuro Exam and Extremities and Variation: Appearance ( overweight white male no apparent distress) Hours since solid foods: 12 Hours since liquid intake: 12 Mallampati Classification: class II Internal Medicine - PN: Obj Da Vital Signs Vital Signs: Vital Signs - 24 hr 05/29/22 12:00 05/29/22 14:03 05/29/22 16:14 Temperature 35.7 C L Pulse Rate 69 62 57 L Respiratory Rate 16 Blood Pressur
--- NOTE | 2022-05-30 12:43 | ECG_ITS ---
Measurements Intervals [place] Rate: 57 P: 12 IN: 168 QRS: 18 QRSD: 117 T: 3 QT: 447 QTc: 438 Interpretive Statements SINUS BRADYCARDIA WITH OCCASIONAL VENTRICULAR PREMATURE COMPLEXES MINOR RV CONDUCTION ABNORMALITY COMPARED TO ECG 05/28/2022 12:52:31 SINUS BRADYCARDIA NOW PRESENT OTHERWISE NO SIGNIFICANT DIFFERENCE Electronically Signed On 05-30-2022 15:15:18 [employer]PER[employer] by Amador Hicks M.D.
--- NOTE | 2022-05-30 12:46 | WPDCARDPROC ---
Cardiac Cath Procedure Note Date of procedure:: 05/30/22 Performing physician:: Amador Hicks MD Indication:: exertional chest pain typical of angina Brief clinical history:: this is a 56-year-old man without previous cardiac history who enters the hospital with a recent onset of exertional angina typical by history. He has history of hypertension and dyslipidemia which are well controlled medically. Procedure Procedure performed:: Left ventriculogram coronary angiogram PCI (LUPE) to distal right coronary artery Sedation/Medication given:: fentanyl 50 mg Versed 2 mg case start time 1203 case end time 12:34 p.m. sedation provided Martha Guido RN trained observer Access site:: right femoral artery Estimated blood loss:: 25 cc Procedure note:: patient was brought to the cardiac catheterization lab in postabsorptive state where the right femoral triangle was prepared and draped in the normal fashion. Anesthesia was provided with 1% lidocaine infiltrated locally. Using the modified Seldinger technique a 5 Latvian sheath was placed into the right femoral artery after this left heart catheterization was carried out. I used a 5 Latvian angled pigtail catheter to measure left-sided hemodynamics and to inject LV g in the HERNANDEZ projection. Following this I used a 5 Latvian FL4 catheter to engage and inject the left coronary artery in multiple projections and then a 5 Latvian JR4 catheter to engage and inject the right coronary artery. The cineangiograms were then reviewed. After this the PC of the distal RCA lesion was recommended carried out as detailed below. Prior to PCI the 5 Latvian sheath was exchanged over a guidewire to a 6 Latvian sheath. He was then systemically anticoagulated with a bolus and infusion of Angiomax. He received 600 mg of clopidogrel prior to this PCI. Following the procedure the sheath was sutured into position the patient was taken to the holding area stable condition the procedure was uncomplicated and well tolerated. There were no signs of groin hematoma at the completion the case. Findings:: Hemodynamics: Central aortic pressure is 130 over 70 left ventricle 130/3 end-diastolic pressure 16 there is no gradient on pullback across the aortic valve. Left ventricle: Left ventricle appears to be at the upper limits of normal in size. All segments contract normally the global ejection fraction is 50-55%. The left main coronary artery is nicely patent the left anterior descending is moderate caliber artery extending down to around the apex. The LAD has mild luminal irregularity proximally but there is no significant occlusive disease identified. The circumflex is a medium caliber vessel giving rise to a very small OM1 branch after this the circumflex is 100% occluded prior to a much larger bifurcating 2nd marginal branch. This appears to be a chronic total occlusion and the occluded segment receive some mmbn-sy-sdia as well as some anzrc-tl-ragt collateral filling. The right coronary artery is large in caliber dominant to the posterior circulation. The RCA has a moderate stenosis of about 80% in the 3rd portion prior to the bifurcation the RCA is normal proper prior to this lesion the RPDA and PL branches are also free of significant disease. Intervention: The right coronary artery was engaged using a 6 Latvian JR4 catheter. I used a 0.014 BMW coronary guidewire advanced easily into the trunk of the RCA through the target lesion out into the PDA. I then used a 3 x 20 mm Portillo balloon to pre dilate the target lesion at nominal pressure. Following balloon dilatation the lesion was widely patent there was a visible focal dissection that developed as a result of the PTCA. This was not flow-limiting and did not propagate down the artery. The target lesion was then stented using a 3 by 22 mm RealDiro stent deployed at 10 atmospheres with an excellent angiographic result the vessel f
[2022-05-30] MEDS: SODIUM CHLORIDE 0.9% IV 1,000 ML 125 ML IV CONT (13:52)
--- NOTE | 2022-05-30 16:25 | PM.IMPN ---
Progress Note: A&P Assessment and Plan (1) Chest pain: Code(s): R07.9 - Chest pain, unspecified Status: Acute Assessment and Plan: -the patient's troponin are negative x2 -the patient has discomfort with exertion. -the patient had a stress test in 2012 which was negative. -the patient stated that for the last week or 2 with any exertion he has had the burning sensation across his chest. -chest x-ray shows no acute cardiopulmonary disease. -the ED provider did consult Cardiology. -the patient was started on a daily aspirin. The patient is already on atenolol and pravastatin. -an echo has been ordered for tomorrow. -I did not order a stress test as it sounds like the patient is having chest pain with exertion. 05/30/2022 interval history: 56-year-old male presented with complaint of exertional chest for 2 weeks he presented emergency depart further evaluation 3 sets of cardiac enzymes are negative patient was seen by Cardiology recommended patient will benefit with cardiac catheterization to further evaluate, today patient was taken to computer lab para professional, cardiac catheterization showed severe coronary artery disease stents were placed patient started on dual anti-platelet therapy with aspirin and Plavix, will follow-up and further recommendation to follow (2) Essential (primary) hypertension: Code(s): I10 - Essential (primary) hypertension Status: Acute Assessment and Plan: Continue with atenolol (3) GERD without esophagitis: Code(s): K21.9 - Gastro-esophageal reflux disease without esophagitis Status: Acute Assessment and Plan: IV Protonix -the patient has had EGDs in the past that show gastritis. (4) Dyslipidemia: Code(s): E78.5 - Hyperlipidemia, unspecified Status: Acute Assessment and Plan: -continue with pravastatin Subjective Date/time seen: 05/30/22 16:25 05/30/2022 interval history: 56-year-old male presented with complaint of exertional chest for 2 weeks he presented emergency depart further evaluation 3 sets of cardiac enzymes are negative patient was seen by Cardiology recommended patient will benefit with cardiac catheterization to further evaluate, today patient was taken to computer lab para professional, cardiac catheterization showed severe coronary artery disease stents were placed patient started on dual anti-platelet therapy with aspirin and Plavix, will follow-up and further recommendation to follow Review of Systems Review of Systems: All systems reviewed & are unremarkable except as noted in HPI and below Exam Narrative: Patient is comfortable, NAD HEENT: eyes are clear and none icteric LUNGS:CTA HEART: RR S1S2 ABD: BS+, Soft and nontender Lower extremities: no edema SKIN: nonjaundiced Neuro: grossly intact. Objective Data Vital Signs Vital Signs: Vital Signs - 24 hr 05/29/22 20:00 05/29/22 20:00 05/29/22 22:00 Temperature 97.9 F Pulse Rate 70 70 63 Respiratory Rate 16 18 Blood Pressure 131/82 Pulse Oximetry 98 97 Oxygen Delivery Room Air 05/30/22 00:00 05/30/22 04:00 05/30/22 06:00 Temperature 98.0 F Pulse Rate 61 61 62 Respiratory Rate 16 Blood Pressure 119/76 Pulse Oximetry 98 Oxygen Delivery 05/30/22 08:39 05/30/22 08:30 05/30/22 08:30 Temperature Pulse Rate 62 60 Respiratory Rate Blood Pressure Pulse Oximetry Oxygen Delivery Room Air 05/30/22 13:00 05/30/22 13:15 05/30/22 13:30 Temperature Pulse Rate 59 L 59 L 60 Respiratory Rate 14 16 14 Blood Pressure 122/86 122/83 131/91 H Pulse Oximetry 96 96 96 Oxygen Delivery Room Air Room Air Room Air 05/30/22 13:45 05/30/22 14:00 05/30/22 14:30 Temperature Pulse Rate 62 65 76 Respiratory Rate 12 16 16 Blood Pressure 122/80 130/75 125/81 Pulse Oximetry 95 96 96 Oxygen Delivery Room Air Room Air Room Air 05/30/22 15:00 05/30/22 15:07 05/30/22 15:11 Temperature Pulse Rate 58 L 59 L 61 Respiratory Rate 18
--- NOTE | 2022-05-30 16:47 | SUR.PHASEII ---
Report given to 3 med RN via phone. Bedside right groin check performed with 3 med RN upon transfer. Patient educated about bedrest and signs & symptoms of arterial bleed. Call light left within patient reach.
[2022-05-30] MEDS: LOSARTAN POTASSIUM 50 MG TABLET PO (17:11)
[2022-05-30] MEDS: PRAVASTATIN SODIUM 20 MG TABLET 40 MG PO (17:11)
[2022-05-31] VITALS (7 sets, daily range): BP systolic 118–130; BP diastolic 69–74; PULSE 57–66; RESP 16–18; TEMP 36–36.7; O2SAT 95–98
--- NOTE | 2022-05-31 05:11 | ECG_ITS ---
Measurements Intervals [place] Rate: 63 P: 8 [place]: 176 QRS: 7 QRSD: 110 T: -1 QT: 417 QTc: 429 Interpretive Statements SINUS RHYTHM WITH OCCASIONAL VENTRICULAR PREMATURE COMPLEXES COMPARED TO ECG 05/30/2022 12:57:47 SINUS RHYTHM NOW PRESENT Electronically Signed On 05-31-2022 16:32:44 RIGGING MAN by Juan Conner M.D.
[2022-05-31 05:55] LABS: Hemoglobin 16.2 g/dL (14.0-18.0); Mean Corpuscular HGB Conc 33.1 g/dl (32-36); Mean Corpuscular Hemoglobin 31.8 pg (26-34); Mean Corpuscular Volume 96.3 fl (80-100); Mean Platelet Volume 10.2 fl (7.4-10.4); Platelet Count Result 110 k/mm3 (150-375); Red Blood Count 5.09 M/mm3 (4.6-6.20); White Blood Count 5.7 K/mm3 (4.5-10.0)
[2022-05-31 06:14] LABS: Anion Gap 7 mmol/L (8-16); Blood Urea Nitrogen 13 mg/dL (9-20); Calcium 8.7 mg/dL (8.4-10.2); Carbon Dioxide 25 mmol/L (22-30); Chloride 107 mmol/L (98-107); Estimated CRCL calculation 106 ml/min; Estimated Glomerular Filt Rate > 60; Glucose 91 mg/dL (65-110); Potassium 4.1 mmol/L (3.4-5.0); Sodium 139 mmol/L (137-145)
[2022-05-31] MEDS: PANTOPRAZOLE SODIUM IV 40 MG VIAL IV PUSH (08:36)
[2022-05-31] MEDS: ENOXAPARIN 40 MG/0.4 ML SYRINGE SUB-Q (08:36)
[2022-05-31] MEDS: ASPIRIN 81 MG CHEWABLE TABLET PO (08:36)
[2022-05-31] MEDS: atenoloL 50 MG TABLET PO (08:36)
[2022-05-31] MEDS: CLOPIDOGREL BISULFATE 75 MG TABLET PO (08:36)
[2022-05-31 09:57] LABS: Cholesterol 201 mg/dL (0-200); HDL Direct 42 mg/dL; Triglycerides 107 mg/dL (<150)
[2022-05-31 10:08] LABS: LDL Cholesterol Direct 109 mg/dL
--- NOTE | 2022-05-31 10:32 | PM.DS ---
DS: Admitting Diagnosis Discharge Date 05/31/2022 Admitting Diagnosis chest pain DS: Discharge Diagnosis Discharge Diagnosis (1) Chest pain: Code(s): R07.9 - Chest pain, unspecified Status: Acute Assessment and Plan: -the patient's troponin are negative x2 -the patient has discomfort with exertion. -the patient had a stress test in 2012 which was negative. -the patient stated that for the last week or 2 with any exertion he has had the burning sensation across his chest. -chest x-ray shows no acute cardiopulmonary disease. -the ED provider did consult Cardiology. -the patient was started on a daily aspirin. The patient is already on atenolol and pravastatin. -an echo has been ordered for tomorrow. -I did not order a stress test as it sounds like the patient is having chest pain with exertion. 05/30/2022 interval history: 56-year-old male presented with complaint of exertional chest for 2 weeks he presented emergency depart further evaluation 3 sets of cardiac enzymes are negative patient was seen by Cardiology recommended patient will benefit with cardiac catheterization to further evaluate, today patient was taken to catheter builder, cardiac catheterization showed severe coronary artery disease stents were placed patient started on dual anti-platelet therapy with aspirin and Plavix, will follow-up and further recommendation to follow (2) Essential (primary) hypertension: Code(s): I10 - Essential (primary) hypertension Status: Acute Assessment and Plan: Continue with atenolol (3) GERD without esophagitis: Code(s): K21.9 - Gastro-esophageal reflux disease without esophagitis Status: Acute Assessment and Plan: IV Protonix -the patient has had EGDs in the past that show gastritis. (4) Dyslipidemia: Code(s): E78.5 - Hyperlipidemia, unspecified Status: Acute Assessment and Plan: -continue with pravastatin DS: Summary Hospital Course Reason for hospitalization: Chest pain Narrative: This is a 56-year-old male patient who has a history of hyperlipidemia and hypertension.? The patient has had no prior history of any coronary artery disease.? The patient states that around noon he was performing yd work when he developed some chest discomfort.? Patient stated he had a burning discomfort across the top of his chest.? He did not have any nausea vomiting but he did have shortness of breath.? He also had dizziness and diaphoresis.? The patient stated that he gets this discomfort quite often with activity.? He has had intermittent episodes over the last 1-2 weeks with walking up stairs and exertion.? He does not become nauseated but does become diaphoretic at times.? Patient was given morphine and nitro as well as aspirin in the emergency room.? Chest x-ray was read as no acute cardiopulmonary disease.? Troponins are negative x2.? Lipase is 319.? Influenza A/B and COVID are negative.? The patient had a stress test in 2012 which was found to be negative.? The patient is being admitted to observation status on the date of service of 05/28/2022. Hospital Course: ?56-year-old male presented with complaint of exertional chest for 2 weeks he presented emergency depart further evaluation 3 sets of cardiac enzymes are negative patient was seen by Cardiology recommended patient will benefit with cardiac catheterization to further evaluate,? today patient was taken to catheter builder, cardiac catheterization showed severe coronary artery disease stents were placed patient started on dual anti-platelet therapy with aspirin and Plavix,? will follow-up and further recommendation to follow, today patient clinically stable seen by Cardiology, discharged home Time Spent with Patient Time attestation: Total time spent providing and/or coordinating discharge services: Exam Narrative: Patient is comfortable, NAD HEENT: eyes are clear and none icteric LUNGS:CTA HEART: RR S1S2 ABD: BS+, Soft
--- NOTE | 2022-05-31 10:36 | PM.PNCARD ---
Progress Note: A&P Assessment and Plan (1) Chest pain: Code(s): R07.9 - Chest pain, unspecified Status: Acute (2) Essential (primary) hypertension: Code(s): I10 - Essential (primary) hypertension Status: Acute (3) Dyslipidemia: Code(s): E78.5 - Hyperlipidemia, unspecified Status: Acute Plan Underwent PCI with 1 stent to the distal RCA with Dr. Hicks on 05/30. TTE shows LVEF 60-65% with grade 1 diastolic dysfunction, no significant valvular disease. Patient to be on ASA 81mg indefinitely. Plavix 75mg QD for at least 1 year. Continue beta-malick and ARB. Patient taking Pravastatin at home - will change to Atorvastatin for higher potency given CAD. Okay to discharge home from a cardiac standpoint. Will have patient follow up with us in clinic. Subjective Date/time seen: 05/31/22 10:36 Interval history: Reason for visit: Angina, post-cardiac cath Patient doing well this morning. No episodes of chest pain. Underwent PCI with 1 stent to the distal RCA with Dr. Hicks on 05/30. Tolerating DAPT. No issues with access site. Review of Systems Review of Systems: 8-point ROS obtained. Negative, unless stated in HPI. Exam Const: General: comfortable and no acute distress HENMT: Mouth: Yes moist mucous membranes Eyes: General: appearance normal, both eyes and all related structures Sclera: sclerae normal Neck: Neck: supple Resp: Effort & Inspection: normal respiratory effort Auscultation: clear to auscultation bilaterally Cardio: Rate: regular rate Rhythm: regular rhythm Heart sounds: no murmurs GI: GI Palp: Yes Soft to palpation and No Tenderness to palpation present (GI) Skin: General skin exam: normal color Neuro: Speech: normal speech Motor exam (neuro): 5/5 motor strength present throughout Psych: Mental Status: mental status grossly normal Affect: normal affect Objective Data Vital Signs Vital Signs: Vital Signs - 24 hr 05/30/22 13:00 05/30/22 13:15 05/30/22 13:30 Temperature Pulse Rate 59 L 59 L 60 Respiratory Rate 14 16 14 Blood Pressure 122/86 122/83 131/91 H Pulse Oximetry 96 96 96 Oxygen Delivery Room Air Room Air Room Air 05/30/22 13:45 05/30/22 14:00 05/30/22 14:30 Temperature Pulse Rate 62 65 76 Respiratory Rate 12 16 16 Blood Pressure 122/80 130/75 125/81 Pulse Oximetry 95 96 96 Oxygen Delivery Room Air Room Air Room Air 05/30/22 15:00 05/30/22 15:07 05/30/22 15:11 Temperature Pulse Rate 58 L 59 L 61 Respiratory Rate 18 19 17 Blood Pressure 123/88 119/89 128/81 Pulse Oximetry 95 96 95 Oxygen Delivery Room Air Room Air Room Air 05/30/22 15:15 05/30/22 15:20 05/30/22 15:25 Temperature Pulse Rate 65 61 63 Respiratory Rate 19 20 19 Blood Pressure 148/87 H 135/82 135/80 Pulse Oximetry 96 96 96 Oxygen Delivery Room Air Room Air Room Air 05/30/22 15:30 05/30/22 15:35 05/30/22 15:40 Temperature Pulse Rate 58 L 60 60 Respiratory Rate 18 21 H 21 H Blood Pressure 144/88 H 138/85 131/81 Pulse Oximetry 95 95 95 Oxygen Delivery Room Air Room Air Room Air 05/30/22 16:00 05/30/22 16:30 05/30/22 16:49 Temperature 37.0 C Pulse Rate 57 L 57 L 60 Respiratory Rate 16 18 18 Blood Pressure 126/91 H 138/81 126/85 Pulse Oximetry 95 97 96 Oxygen Delivery Room Air Room Air 05/30/22 17:11 05/30/22 20:00 05/30/22 20:00 Temperature Pulse Rate 60 63 63 Respiratory Rate 18 Blood Pressure Pulse Oximetry 96 Oxygen Delivery Room Air 05/30/22 21:26 05/31/22 00:00 05/31/22 02:28 Temperature 36.6 C 36.7 C Pulse Rate 60 66 58 L Respiratory Rate 16 16 Blood Pressure 120/76 118/71 Pulse Oximetry 96 97 Oxygen Delivery 05/31/22 04:00 05/31/22 06:28 05/31/22 08:36 Temperature 36.5 C Pulse Rate 57 L 61 61 Respiratory Rate 16 Blood Pressure 130/74 Pulse Oximetry 98 Oxygen Delivery Intake/Output Intake/Output: Intake & Output 05/28/22 05/29/22 05/30/2205/31
== END 2022-05-31 12:05 | disposition home or self-care (01) | DRG 247 ==
LOC: ANHED 16:23 → ANH3MED 18:30
PROVIDERS: Internal Medicine; Nurse Practitioner; Specialist; Admitting Provider Internal Medicine; Emergency Provider General Practice; PCP Family Medicine; Visit Provider Family Medicine
PROC: 4A023N7 Measurement of Cardiac Sampling and Pressure, Left Heart, Percutaneous Approach (ICD-10-PCS; CPT 93452; principal; 2022-05-30 12:00)
PROC: 027034Z Dilation of Coronary Artery, One Artery with Drug-eluting Intraluminal Device, Percutaneous Approach (ICD-10-PCS; 2022-05-30 12:00)
DX: I25.119 Atherosclerotic heart disease of native coronary artery with unspecified angina pectoris (principal); I10 Essential (primary) hypertension; E78.5 Hyperlipidemia, unspecified; Z20.822 Contact with and (suspected) exposure to COVID-19; K21.9 Gastro-esophageal reflux disease without esophagitis
CPT/HCPCS: 36415; 71046; 80048; 80053; 80061; 83690; 83735; 84443; 84484; 85025; 85027; 85055; 85610; 85730; 87636; 93005; 93306; 93458; 96374; 96376; 99285; A9270; C1725; C1769; C1874; C1887; C1894; C9113; C9600; G0378; J0461; J0583; J1644; J1650; J2250; J3010; J7030; J7040

== ENCOUNTER 2022-08-11 07:15 | Outpatient (RCR) | payer BC, SELFPAY | END 2022-08-11 19:06 | disposition home or self-care (01) | LOC: ANHCPREHAB 07:15 | PROVIDERS: PCP Family Medicine; Visit Provider Specialist | DX: Z95.5 Presence of coronary angioplasty implant and graft (principal) | CPT/HCPCS: 93798 ==

== ENCOUNTER 2023-04-27 09:22 | Outpatient (CLI) | payer BC, SELFPAY ==
--- NOTE | ~2023-04-27 | US_ITS ---
EXAMINATION: US abdomen limited DATE: 04/27/2023 09:40 INDICATION: Abnormal liver function tests, possible cirrhosis TECHNIQUE: Multiple grayscale and Doppler ultrasound images of the abdomen were obtained. COMPARISON: None available FINDINGS: The head and body of the pancreas are normal. The pancreatic tail is obscured by bowel gas. The liver demonstrates increased echogenicity, coarsened echotexture, and liver surface nodularity. Normal hepatopetal flow in the main portal vein. The gallbladder is normal with no abnormal wall thic kening, pericholecystic fluid or stones. The normal common bile duct measures 4 mm. There was no sono graphic Kirk sign. IMPRESSION: 1. Cirrhosis. Reviewed, dictated and finalized at location [facility]. [employer] IMPRESSION: 1. Cirrhosis.
== END 2023-04-27 09:23 | disposition home or self-care (01) ==
PROVIDERS: PCP Family Medicine; Visit Provider Nurse Practitioner
DX: D69.6 Thrombocytopenia, unspecified (principal); E66.9 Obesity, unspecified; R74.8 Abnormal levels of other serum enzymes; K74.60 Unspecified cirrhosis of liver
CPT/HCPCS: 76705

== ENCOUNTER 2023-06-05 16:48 | Outpatient (CLI) | payer BC, SELFPAY ==
--- NOTE | ~2023-06-05 | MR_ITS ---
EXAMINATION: MR abdomen wo/w con INDICATION: Cirrhosis, elevated liver enzymes TECHNIQUE: Coronal SSFSE ARC, WATER:coronal LAVA-FLEX, Coronal 2D FIESTA FatSat, Axial SSFSE BH ARC, Axial 3D DualEcho BH, Axial SSFSE-IR, Axial DWI b=500, Axial 2D FIESTA FatSat, pre and dynamic postco ntrast Axial LAVA ARC, postcontrast Coronal In and Opposed phase LAVA FLEX COMPARISON: None available CONTRAST: Multihance, 19 cc FINDINGS: The liver surface is nodular. No abnormal enhancing liver lesions are identified. There are innumerable regenerative nodules throughout the liver. There is bland thrombus in the superior mesen teric vein near the splenic confluence and a small amount of thrombus in the main portal vein. The en larged spleen measures 15.1 cm. The pancreas, gallbladder, and adrenal glands are normal. The right k idney is unremarkable. There is a 1.7 cm cyst of the left kidney. No pathologically enlarged abdomina l lymph nodes are identified. There are no dilated loops of bowel. IMPRESSION: 1. Cirrhosis with portal hypertension. 2. Partial thrombosis superior mesenteric vein near the splenic confluence and small amount of thromb us in the main portal vein. Reviewed, dictated and finalized at location [facility]. [employer] IMPRESSION: 1. Cirrhosis with portal hypertension. 2. Partial thrombosis superior mesenteric vein near the splenic confluence and small amount of thrombus in the main portal vein.
== END 2023-06-05 16:49 | disposition home or self-care (01) ==
PROVIDERS: PCP Family Medicine; Visit Provider Nurse Practitioner
DX: R93.2 Abnormal findings on diagnostic imaging of liver and biliary tract (principal); K74.60 Unspecified cirrhosis of liver; R79.89 Other specified abnormal findings of blood chemistry; R74.8 Abnormal levels of other serum enzymes; R77.2 Abnormality of alphafetoprotein
CPT/HCPCS: 74183; A9577

== ENCOUNTER 2023-06-27 03:55 | Day surgery (SDC) | payer BC, SELFPAY ==
[2023-06-14 14:37] VITALS: BMI 31.0
--- NOTE | 2023-06-23 10:51 | SUR.PREOP ---
Patient called regarding upcoming procedure. Message left on voicemail regarding appointment times.
[2023-06-27 10:01] VITALS: BP 123/85; PULSE 61; RESP 20; TEMP 36.4; O2SAT 97; BMI 32.2
[2023-06-27] MEDS: LACTATED RINGERS 1,000 ML 150 ML IV CONT (10:07)
--- NOTE | 2023-06-27 10:07 | WPDANESEPPF ---
Anes - Initial Pre Proc Eval Procedure: Operation Date: 06/27/23 13:00 Proposed Procedures p Esophagogastroduodenoscopy - Devin Berman MD Date/Time: 06/27/23 10:07 Surgeon: Devin Berman MD Pre Op Diagnosis: Unspecified cirrhosis of liver Patient Data Age: 57 Gender: M Height: 1.75 m Weight: 99.1 kg Last Vital Signs Temp 97.6 F 06/27/23 10:01 Pulse 61 06/27/23 10:01 Resp 20 06/27/23 10:01 BP 123/85 06/27/23 10:01 Pulse Ox 97 06/27/23 10:01 O2 Del Method Room Air 06/27/23 10:01 Allergies Allergy/AdvReac Type Severity Reaction Status Date / Time No Known Allergies Allergy Verified 06/27/23 09:59 Home Medications Medication Instructions Recorded Confirmed Type atenolol 50 mg tablet 50 mg PO BID 03/30/20 06/14/23 History losartan 50 mg tablet 50 mg PO QAM 05/28/22 06/14/23 History omeprazole 40 mg capsule,delayed 40 mg PO QAM 05/28/22 06/14/23 History release aspirin 81 mg chewable tablet 81 mg PO DAILY@0800 #30 tabs 05/31/22 06/14/23 Rx (Children's Aspirin) atorvastatin 40 mg tablet 40 mg PO QPM #30 tabs 05/31/22 06/14/23 Rx nitroglycerin 0.4 mg sublingual 0.4 mg sublingual Q5MIN PRN Chest 05/31/22 06/14/23 Rx tablet (Nitrostat) Pain #25 tabs trazodone 100 mg tablet 100 mg PO QHS PRN Insomnia 04/11/23 06/14/23 History apixaban 5 mg tablet (Eliquis) 5 mg PO BID 1 month #60 tabs 06/07/23 06/14/23 Rx isosorbide mononitrate 30 mg 30 mg PO DAILY 06/14/23 06/14/23 History tablet,extended release 24 hr clopidogrel 75 mg tablet (Plavix) 75 mg PO DAILY 06/27/23 06/14/23 History Patient hx anesthesia problems: none Family hx anesthesia problems: none Results Review: All pre-operative results and documents have been reviewed as part of the pre-operative evaluation. [facility] Past Medical History Medical History (Updated 06/09/23 @ 09:08 by Marisol Delgado APRN) CAD (coronary artery disease) Cirrhosis Diarrhea Dyslipidemia Elevated AFP Elevated ferritin Elevated liver enzymes Encounter for screening colonoscopy Epigastric pain Essential (primary) hypertension GERD without esophagitis Hx of adenomatous colonic polyps Hypertension Nonerosive esophageal reflux disease Obesity Portal vein thrombosis Thrombocytopenia Thrombosis of superior mesenteric artery Surgical History Surgical History History of esophagogastroduodenoscopy (EGD) Family History Family History Mother Hypertension Grandparent No problems noted. Father Esophageal cancer Other Diabetes mellitus Family history of coronary artery disease Social History Social History Social History: The patient lives with his . His is the durable power attorney recruiter for healthcare. He has 2 children. 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 Lifelong nonsmoker. He denies any marijuana or illicit drugs. Patient has a weekly mixed drink. Code status full code Smoking status: Never smoker Second hand tobacco smoke exposure: No Alcohol intake: former Drinks per week: 3 Alcohol use details: 1 glass of mixed drink w/ Vodka consumed weekly. Substance use: never Substance use type: does not use Lack of Transportation: No Lack of Food: Never True Current Housing: I Have Housing Concerned About Future Housing: No Difficulty Paying Gas/Electric Bills: No Difficulty Paying for Meds: No Currently Unemployed: No Education: High School Diploma/GED Difficulty w/ Childcare or Family Care: No Living arrangements: with family Gender identity (if verbalized by the patient): Male Spiritual care concerns: No Anes - Eval Final PreProcedure Day of Procedure 06/27/23 10:07 Patient weight: obese Heart: regular rate and rhythm Lungs: clear to auscultati
--- NOTE | 2023-06-27 10:43 | PM.HPGS ---
History of Present Illness History of Present Illness Consent: Risks, benefits, and alternatives have been discussed and questions answered. Patient agrees to proceed with procedure. Chief complaint: Unspecified cirrhosis of liver Narrative: Vikas Polk is a 57 year old male with recent diagnosis of cirrhosis, unknown etiology, also partial PVT on eliquis, here for EGD to assess if varices, denies any gi symptom, no pain, no gib. Review of Systems Constitutional: Constitutional: Denies headache(s) and Denies weakness Eyes: Eyes: Denies blurry vision ENT: Reports Normal hearing present, Denies headache(s) and Denies neck pain Cardiovascular: Cardiovascular: Denies chest pain and Denies dyspnea Respiratory: Respiratory: Denies dyspnea Gastrointestinal: Gastrointestinal: Reports no additional gastrointestinal complaints Genitourinary: Genitourinary: Denies dysuria Musculoskeletal: Musculoskeletal: Denies neck pain Integumentary/Breasts: Skin/Breast: Denies dry skin Neurologic: Reports Normal hearing present, Denies headache(s) and Denies weakness Psychiatric: Psychiatric: Denies anxiety Endocrine: Endocrine: Denies change in body appearance Hematologic/Lymphatic: Hematologic/Lymphatic: Denies easy bleeding Allergic/Immunologic: Allergic/Immunologic: Denies urticaria PMFSH Past Medical History Medical History (Updated 06/09/23 @ 09:08 by Marisol Delgado APRN) CAD (coronary artery disease) Cirrhosis Diarrhea Dyslipidemia Elevated AFP Elevated ferritin Elevated liver enzymes Encounter for screening colonoscopy Epigastric pain Essential (primary) hypertension GERD without esophagitis Hx of adenomatous colonic polyps Hypertension Nonerosive esophageal reflux disease Obesity Portal vein thrombosis Thrombocytopenia Thrombosis of superior mesenteric artery Surgical History Surgical History History of esophagogastroduodenoscopy (EGD) Family History Family History Mother Hypertension Grandparent No problems noted. Father Esophageal cancer Other Diabetes mellitus Family history of coronary artery disease Social History Social History Social History: The patient lives with his . His is the durable power bicycle service technician for healthcare. He has 2 children. 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 Lifelong nonsmoker. He denies any marijuana or illicit drugs. Patient has a weekly mixed drink. Code status full code Smoking status: Never smoker Second hand tobacco smoke exposure: No Alcohol intake: former Drinks per week: 3 Alcohol use details: 1 glass of mixed drink w/ Vodka consumed weekly. Substance use: never Substance use type: does not use Lack of Transportation: No Lack of Food: Never True Current Housing: I Have Housing Concerned About Future Housing: No Difficulty Paying Gas/Electric Bills: No Difficulty Paying for Meds: No Currently Unemployed: No Education: High School Diploma/GED Difficulty w/ Childcare or Family Care: No Living arrangements: with family Gender identity (if verbalized by the patient): Male Spiritual care concerns: No Meds Home Medications and Allergies Home Medications Medication Instructions Recorded Confirmed Type atenolol 50 mg tablet 50 mg PO BID 03/30/20 06/14/23 History losartan 50 mg tablet 50 mg PO QAM 05/28/22 06/14/23 History omeprazole 40 mg capsule,delayed 40 mg PO QAM 05/28/22 06/14/23 History release aspirin 81 mg chewable tablet 81 mg PO DAILY@0800 #30 tabs 05/31/22 06/14/23 Rx (Children's Aspirin) atorvastatin 40 mg tablet 40 mg PO QPM #30 tabs 05/31/22 06/14/23 Rx nitroglycerin 0.4 mg sublingual 0.4 mg sublingual Q5MIN PRN Chest 05/31/22 06/14/23 Rx tablet (Nitrostat) Pain #25 tabs trazodone 100 m
[2023-06-27 10:56] VITALS: BP 98/66; PULSE 65; RESP 28; O2SAT 93
[2023-06-27 11:06] VITALS: BP 103/72; PULSE 62; RESP 18; O2SAT 95
[2023-06-27 11:15] VITALS: BP 110/76; PULSE 60; RESP 17; O2SAT 94
== END 2023-06-27 11:24 | disposition home or self-care (01) ==
PROVIDERS: PCP Family Medicine; Visit Provider Internal Medicine Gastroenterology
PROC: 0DJ08ZZ Inspection of Upper Intestinal Tract, Via Natural or Artificial Opening Endoscopic (ICD-10-PCS; CPT 43235; principal; 2023-06-27 13:00)
DX: K74.60 Unspecified cirrhosis of liver (principal); I85.10 Secondary esophageal varices without bleeding; I81 Portal vein thrombosis; I25.10 Atherosclerotic heart disease of native coronary artery without angina pectoris; E78.5 Hyperlipidemia, unspecified; I10 Essential (primary) hypertension; K21.9 Gastro-esophageal reflux disease without esophagitis; Z79.82 Long term (current) use of aspirin; Z79.01 Long term (current) use of anticoagulants; Z79.02 Long term (current) use of antithrombotics/antiplatelets; E66.9 Obesity, unspecified; Z68.32 Body mass index [BMI] 32.0-32.9, adult
CPT/HCPCS: 43235; J2704; J7120

== ENCOUNTER 2023-07-12 16:37 | Outpatient (CLI) | payer BC, SELFPAY ==
[2023-07-12 17:28] LABS: Hemoglobin 14.7 g/dL (14.0-18.0); Immature Platelet Fraction Pct 4.1 % (0.9-11.2); Mean Corpuscular Hemoglobin 31.1 pg (26-34); Mean Corpuscular Volume 97.3 fl (80-100); Mean Platelet Volume 10.4 fl (7.4-10.4); Platelet Count Result 137 k/mm3 (150-375); Red Blood Count 4.73 M/mm3 (4.6-6.20); Red Cell Distribution Width 15.3 % (11.5-14.5); White Blood Count 6.3 K/mm3 (4.5-10.0)
[2023-07-12 17:34] LABS: INR 1.2; Prothrombin Time 16.1 Seconds (11.1-14.7)
== END 2023-07-12 16:38 | disposition home or self-care (01) ==
LOC: ANHLAB 16:38
PROVIDERS: PCP Family Medicine; Visit Provider Nurse Practitioner Family
DX: R04.0 Epistaxis (principal)
CPT/HCPCS: 36415; 85027; 85055; 85610

== ENCOUNTER 2023-09-14 08:08 | Outpatient (CLI) | payer BC, SELFPAY ==
--- NOTE | ~2023-09-14 | US_ITS ---
EXAMINATION: US right upper quadrant DATE: 09/14/2023 08:40 INDICATION: Portal vein thrombosis TECHNIQUE: Multiple grayscale and Doppler ultrasound images of the abdomen were obtained. COMPARISON: MRI, 06/05/2023 FINDINGS: The head and body of the pancreas are normal. The pancreatic tail is obscured by bowel gas. The liver demonstrates increased echogenicity and echotexture. The liver surface is nodular. Normal hepatopetal flow in the main portal vein. No thrombus is identified in the visualized portion of the portal vein. The gallbladder is normal with no abnormal wall thickening, pericholecystic fluid or sto trista. The normal common bile duct measures 3 mm. There was no sonographic Kirk sign. IMPRESSION: 1. Cirrhosis. 2. No thrombus identified in the visualized portions of the portal vein. Reviewed, dictated and finalized at location F.
== END 2023-09-14 08:09 | disposition home or self-care (01) ==
LOC: ANHIMG 08:09
PROVIDERS: PCP Family Medicine; Visit Provider Internal Medicine Gastroenterology
DX: K74.60 Unspecified cirrhosis of liver (principal)
CPT/HCPCS: 76705

== ENCOUNTER 2023-11-06 14:31 | Outpatient (CLI) | payer BC, SELFPAY ==
--- NOTE | ~2023-11-06 | MR_ITS ---
EXAMINATION: MR abdomen wo/w con DATE: 11/06/2023 15:33 INDICATION: Portal vein thrombosis TECHNIQUE: Magnetic resonance imaging (MRI) of the abdomen was performed without and with 20 mL Multi gonsalo intravenous contrast. Sequences included coronal T2-weighted SS-FSE, coronal and axial FS 2D-F IESTA, axial STIR FSE, axial T2-weighted SS-FSE, axial T2-weighted FS SS-FSE, axial diffusion-weighte d SE, axial dual-echo T1-weighted FSPGR, and axial and coronal T1-weighted LAVA. Postcontrast axial T 1-weighted LAVA images were obtained in a time course. Postcontrast coronal T1-weighted LAVA images w ere obtained. COMPARISON: 06/05/2023 FINDINGS: Heart size is normal. No pericardial or pleural effusion. Mild bilateral gynecomastia. Nodular nodula r liver with subtle signal heterogeneity consistent with cirrhosis and innumerable small degenerative nodules. No abnormally enhancing liver lesions identified. Splenomegaly measuring 15.6 cm in maximal length with heterogeneous enhancement on the early postcontrast phases which along with a recanalize d umbilical vein is likely related to portal venous hypertension. The previously seen thrombus in the cephalad superior mesenteric vein and proximal main portal vein has resolved with no evident portal venous thrombosis. Persistent mild edematous wall thickening of the gallbladder which is nondilated a nd with no cholelithiasis likely related to liver disease. No intra or extrahepatic biliary ductal di lation. Pancreas, bilateral adrenal glands and right kidney are normal. 1.6 cm nonenhancing right brock al cyst. Visualized portion of the bowels are unremarkable with no obstruction. No pathologically enl arged abdominal lymphadenopathy. Mild thoracic and lumbar spondylosis. Normal bone marrow signal thro ughout. IMPRESSION: 1. Cirrhotic liver with stigmata of secondary portal venous hypertension including recanalized umbili shira vein and splenomegaly. 2. Chronic mild edematous gallbladder wall thickening without evident cholelithiasis or dilation like ly related to liver disease. 3. Interval resolution of prior cyst superior mesenteric and portal venous thrombosis. Reviewed, dictated and finalized at location A. IMPRESSION: 1. Cirrhotic liver with stigmata of secondary portal venous hypertension includ ing recanalized umbilical vein and splenomegaly. 2. Chronic mild edematous gallbladder wall thickening without evident cholelith iasis or dilation likely related to liver disease. 3. Interval resolution of prior cyst superior mesenteric and portal venous thro mbosis.
== END 2023-11-06 14:32 | disposition home or self-care (01) ==
LOC: ANHIMG 14:34
PROVIDERS: PCP Family Medicine
DX: I81 Portal vein thrombosis (principal); K74.69 Other cirrhosis of liver; R16.1 Splenomegaly, not elsewhere classified; R93.2 Abnormal findings on diagnostic imaging of liver and biliary tract
CPT/HCPCS: 74183; A9577

== ENCOUNTER 2024-11-07 09:44 | Emergency (ER) | payer BC, SELFPAY ==
--- OUTSIDE RECORDS SUMMARY | 2024-11-07 09:46 | XMS_ITS | Referral Summary ---
Author Organization [facility] [place] [address] Address [address] [place] [address] Care Team Providers Care Extrusion Die Template Maker Name Role Phone No, Physician Primary Care Provider [phone] Encounters Date Type Department Care Team Description 08/19/2024 Results Follow-Up [facility] Gastroenterology [address] [place] [address] Fransisco Bergman MD Lipid panel, Insulin, total, [id number], Tumor Marker, Additional followed-up results: 8 08/14/2024 Results Follow-Up [facility] Gastroenterology [address] [facility] [facility] [address] 12th [place] [address] [place] [address] Fransisco Bergman MD MRI Abdomen Liver W WO Contrast 08/14/2024 7:45 AM DOUBLE BACKER Lab [facility] [address] [address] Hepatic cirrhosis, unspecified hepatic cirrhosis type, unspecified whether ascites present (HCC); Insulin resistance 08/14/2024 6:42 AM DOUBLE BACKER - 08/14/2024 11:59 PM DOUBLE BACKER Hospital Encounter [facility] Imaging [address] [address] Hepatic cirrhosis, unspecified hepatic cirrhosis type, unspecified whether ascites present (HCC); Abnormal liver diagnostic imaging Discharge Disposition: Discharge to home or self care from Last 3 Months Allergies No known active allergies Medications omeprazole (PriLOSEC) 40 mg capsule Take 1 capsule (40 mg total) by mouth daily Active traZODone (DESYREL) 100 mg tablet Take 1 tablet (100 mg total) by mouth as needed 06/30/2022 Active nitroglycerin (NITROSTAT) 0.[address] 1 tablet (0.4 mg total) under the tongue every 5 (five) minutes as needed for chest pain (May repeat every 5 minutes up to 3 doses in 15 minutes.) 25 tablet 11 05/08/2023 Active aspirin 81 mg enteric coated tablet Take 1 tablet every day by oral route. 06/06/2022 Active benzonatate (TESSALON) 200 mg capsule TAKE [address]TE 3 TIMES PER DAY NEEDED FOR COUGH 04/26/2024 Active nadoloL (CORGARD) 20 mg tabletIndicatio ns:Secondary esophageal varices without bleeding (HCC) Take 1 tablet (20 mg total) by mouth daily 90 tablet 3 05/02/2024 Active losartan (COZAAR) 50 mg tablet Take 1 tablet (50 mg total) by mouth daily 90 tablet 3 06/21/2024 Active atorvastatin (LIPITOR) 40 mg tablet Take 1 tablet (40 mg total) by mouth nightly 90 tablet 3 07/31/2024 Active Active Problems Problem Noted Date Diagnosed Date Class 1 obesity due to exces s calories with serious comorbidity and body mass index (BMI) of 32.0 to 32.9 in adult 10/26/2023 Other cirrhosis of liver 10/26/2023 Portal vein thrombosis 10/26/2023 Secondary esophageal varices without bleeding 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 05/30/2022 Status post coronary artery stent placement 05/19 Essential hypertension 07/06/2020 Mixed hyperlipidemia 07/06/2020 Resolved Problems Problem Noted Date Diagnosed Date Resolved Date Unstable angina pectoris 07/13/202302/2024 CABALLERO (dyspnea on exertion) 07/06/2020 BMI 34.0-34.9,adult 07/06/2020 10/26/19 24 Immunizations Immunization Administration Dates Next Due TD Preservative Free 06/19/2013 Tdap 01/07/2020 Social History Tobacco Use Types Packs/Day Years Used Date Smoking Tobacco: Never Smokeless Tobacco: Never Tobacco Cessation:Counseling Given: Not Answered Alcohol Use Standard Drinks/Week Comments Yes 1 (1 standard drink = 0.6 oz pur e alcohol) AUDIT-C Answer Date Recorded Q1: How often do you have a drink containing alcohol? Never 05/02/2024 Q2: How many drinks containi ng alcohol do you have on a typical day when you are drinking? Patient does not drink Frequency of Binge Drinking Not on file 04/19 PHQ-9 Answer Date Recorded PHQ-9 Total Score 8 09/21/2023 Personal Safety Answer Date Recorded Have you ever been in or are you currently in a harmful physical or emotional relationship or is someone making you feel afraid or unsafe? Denies 07/28/2023 Sex and Gender Information Value Date Recorded Sex Assigned at Not on file Legal Sex Male 8:01 AM DOUBLE BACKER Gender Identity Not on file Sexual Orientation Not on file Last Filed Vital Signs Vital Sign Reading Time Taken Comments Blood Pressure 144/86 06/21/2024 9:32 AM DOUBLE BACKER Pulse 82 06/21/2024 9:32 AM DOUBLE BACKER Temperature 36.6 C (97.8 F) 07/28/2023 12:49 PM DOUBLE BACKER Respiratory Rate 17 07/28/2023 7:12 PM DOUBLE BACKER Oxygen Saturation 96% 06/21/2024 9:32 AM DOUBLE BACKER Inhaled Oxygen Concentration - - Weight 102.1 kg (225 lb) 06/21/2024 9:32 AM DOUBLE BACKER Height 175.3 cm (5' 9 ) 06/21/2024 9:32 AM DOUBLE BACKER Body Mass Index 33.23 06/21/2024 9:32 AM DOUBLE BACKER Plan of Treatment Not on file Medical Devices Implanted Type Area Brusher Machine Device Identifier Shelf Expiration Date Model / Serial / Lot [employer] Joyce Stent Coronary Drug Eluting Rapid Exchange Synergy Xd [id number] [place] Band Chromium [id number] - S0 - [id number] Implanted:Qty : 1 on 07/28/2023 by Gianluca Licona MD at Stent Left: Circumflex Coronary Artery [place] [employer] Joyce 03/05/2025 [id number] / 0 / [id number] [place] [employer] Joyce Synergy Xd Monorail 2.5mm 28mm 144cm Delivery System 1 Access [id number] - S0 - [id number] Implanted:Qty : 1 on 07/28/2023 by Gianluca Licona MD at Stent Left: Circumflex Coronary Artery [employer] Joyce 01/27/2024 [id number] / 0 / [id number] Bob Vascular Device Clsr Perclose Prostyle Sut-Mediatd Closure-Repai r Sys [id number] - S0 - [id number] Implanted:Qty : 1 on 07/28/2023 by Gianluca Licona MD at Vascular Closure Device Right: Femoral [employer] 04/18/2025 [id number] / 0 / [id number] Procedures Procedure Name Priority Date/Time Associated Diagnosis Comments EGFR Routine 08/14/2024 7:54 AM DOUBLE BACKER Hepatic cirrhosis, unspecified hepatic cirrhosis type, unspecified whether ascites present (HCC) Insulin resistance DIFFERENTIAL AUTO Routine 08/14/2024 7:5 4 AM DOUBLE BACKER Hepatic cirrhosis, unspecified hepatic cirrhosis type, unspecified whether ascites present (HCC) Insulin resistance BLOOD MISC TO MARTHA Routine 08/14/2024 7: 54 AM DOUBLE BACKER PROTIME-INR Routine 08/14/2024 7:54 AM DOUBLE BACKER Hepatic cirrhosis, unspecified hepatic cirrhosis type, unspecified whether ascites present (HCC) Insulin resistance CBC WITH AUTO DIFFERENTIAL Routine 08/14/2024 7:54 AM DOUBLE BACKER Hepatic cirrhosis, unspecified hepatic cirrhosis type, unspecified whether ascites present (HCC) Insulin resistance BILIRUBIN, DIRECT Routine 08/14/2024 7:5 4 AM DOUBLE BACKER Hepatic cirrhosis, unspecified hepatic cirrhosis type, unspecified whether ascites present (HCC) Insulin resistance COMPREHENSIVE METABOLIC PANEL Routine 08/14/2024 7:54 AM DOUBLE BACKER Hepatic cirrhosis, unspecified hepatic cirrhosis type, unspecified whether ascites present (HCC) Insulin resistance HEMOGLOBIN A1C Routine 08/14/2024 7:54 AM DOUBLE BACKER Hepatic cirrhosis, unspecified hepatic cirrhosis type, unspecified whether ascites present (HCC) Insulin resistance [id number], TUMOR MARKER Routine 08/14/2024 7:54 AM DOUBLE BACKER Hepatic cirrhosis, unspecified hepatic cirrhosis type, unspecified whether ascites present (HCC) Insulin resistance INSULIN, TOTAL Routine 08/14/2024 7:54 AM DOUBLE BACKER Hepatic cirrhosis, unspecified hepatic cirrhosis type, unspecified whether ascites present (HCC) Insulin resistance LIPID PANEL Routine 08/14/2024 7:54 AM DOUBLE BACKER Hepatic cirrhosis, unspecified hepatic cirrhosis type, unspecified whether ascites present (HCC) Insulin resistance MRI ABDOMEN LIVER W WO CONTRAST Schedule Routine, Read Routine (OP Routine) 08/14/2024 7:35 AM DOUBLE BACKER Hepatic cirrhosis, unspecified hepatic cirrhosis type, unspecified whether ascites present (HCC) Abnormal liver diagnostic imaging from Last 3 Months Results * BLOOD MISC TO MARTHA (08/14/2024 7:54 AM DOUBLE BACKER) Test name, chem NEFA [place] ref Lab Misc See Footnote [facility] P[facility] Comment: Test Result Flag Unit RefValue Free Fatty Acids, Total, S 0.27 mmol/L <=0.72 Test Performed by: [place] [address] Soft Shoe Dancer: Shaji Fairchild Ph.D.; CLIA# [id number] Blood 08/14/2024 7:54 AM DOUBLE BACKER 08/14/2024 7:59 AM DOUBLE BACKER Fransisco Bergman MD LAB BLOOD ORDERABLES Fin al Result Performing Organization Address City/State/RUST Co de Phone Number [facility] [address] [facility]. [place] [address] [facility] ref Lab * eGFR (08/14/2024 7:54 AM DOUBLE BACKER) eGFR >90 >=60 mL/min/1. 73 m2 Comment: Interpretive Data Reference Interval Normal >/= 90 mL/min/1.73m2 Mildly decreased* 60 - 89 mL/min/1.73m2 Mildly to moderately decreased 45 - 59 mL/min/1.73m2 Moderately to severely decreased 30 - 44 mL/min/1.73m2 Severely decreased 15 - 29 mL/min/1.73m2 Kidney Failure < 15 mL/min/1.73m2 *Relative to young adult level Estimated glomerular filtration rate is determined by the 2020 CKD-EPI equation recommended by the National Kidney Foundation (A Unifying Approach to GFR Estimation: Recommendations of the NKF-ASK Task Force on Reassessing the Inclusion of Race in Diagnosing Kidney Disease, JASN 2020). The CKD-EPI equation should not be used for patients with unstable renal function and has not been validated in children and those over 70. Current interpretive data was last reviewed 2021. Blood 08/14/2024 7:54 AM DOUBLE BACKER 08/14/2024 7:59 AM DOUBLE BACKER us Fransisco Bergman MD LAB BLOOD ORDERABLES Fin al Result Performing Organization Address [facility]/RUST Co de Phone Number [facility] [address] [employer]. [place] [address] * Differential, auto (08/14/2024 7:54 AM DOUBLE BACKER) Neutrophil abs 3.3 1.5 - 6.5 K/cumm Imm gran abs 0.0 0.0 - 0.1 K/cumm [facility] Lymphocyte abs 1.4 0.8 - 3.3 K/cumm [facility] Monocyte abs 0.4 0.2 - 0.8 K/cumm [facility] Eosinophil abs 0.2 0.0 - 0.5 K/cumm [facility] ALEJ[facility] Basophil abs 0.0 0.0 - 0.1 K/cumm [facility] ALEJ[facility] Neutrophil pct 62.7 % [facility] ALEJ[facility] Comment: Interpretive Data Percent cell count reference ranges are not reported, since discordance with absolute values may lead to misinterpretation of CBC data. Current Interpretive Data was last revised on 2017. Imm gran pct 0.4 % MAKI ALEJANDRO Comment: Interpretive Data Percent cell count reference ranges are not reported, since discordance with absolute values may lead to misinterpretation of CBC data. Current Interpretive Data was last revised on 2017. Lymphocyte pct 26.1 % [facility] ALEJANDRO Comment: Interpretive Data Percent cell count reference ranges are not reported, since discordance with absolute values may lead to misinterpretation of CBC data. Current Interpretive Data was last revised on 2017. Monocyte pct 6.9 % MAKI ALEJANDRO Comment: Interpretive Data Percent cell count reference ranges are not reported, since discordance with absolute values may lead to misinterpretation of CBC data. Current Interpretive Data was last revised on 2017. Eosinophil pct 3.1 % MAKI ALEJANDRO Comment: Interpretive Data Percent cell count reference ranges are not reported, since discordance with absolute values may lead to misinterpretation of CBC data. Current Interpretive Data was last revised on 2017. Basophil pct 0.8 % [facility] Comment: Interpretive Data Percent cell count reference ranges are not reported, since discordance with absolute values may lead to misinterpretation of CBC data. Current Interpretive Data was last revised on 2017. Blood 08/14/2024 7:54 AM DOUBLE BACKER 08/14/2024 7:59 AM DOUBLE BACKER us Fransisco Bergman MD LAB BLOOD ORDERABLES Fin al Result [facility] [address] [facility]. Department [place] [address] * (ABNORMAL) CBC with auto differential (08/14/2024 7:54 AM DOUBLE BACKER) WBC 5.2 3.8 - 9.9 K/cumm Hgb 14.7 13.0 - 17.5 g/dL [facility] ALEJANDRO Hct 45.0 38.9 - 50.3 % MAKI ALEJANDRO Plt 126(L) 150 - 400 K/cumm [facility] ALEJ[facility] MPV 10.1 9.1 - 12.3 fL [facility] ALEJANDR[facility] RBC 4.69 4.30 - 5.80 M/cumm MA[facility] ALEJANDRO MCV 95.9 81.3 - 96.4 fL MAKI ALEJANDRO MCH 31.3 27.1 - 33.3 pg MAKI ALEJANDRO MCHC 32.7 32.3 - 35.7 g/dL MA[facility] PEREZCR[facility] RDW CV 15.8(H) 11.1 - 14.9 % [facility] PEREZCR[facility] RDW SD 55.9(H) 35.7 - 48.1 fL [facility] PEREZCR[facility] NRBC abs 0.00 0.00 - 0.01 K/cumm [facility] Blood 08/14/2024 7:54 AM DOUBLE BACKER 08/14/2024 7:59 AM DOUBLE BACKER us Fransisco Bergman MD LAB BLOOD ORDERABLES Fin al Result AM[facility] ALEJANR[facility] [address] [facility]. Department [place] [address] * [id number], Tumor Marker (08/14/2024 7:54 AM DOUBLE BACKER) alpha Fetoprotein 4.5 <=8.3 ng/mL Comment: Interpretive Data The Jacey AFP assay procedure was used. Results from different manufacturers or methods may not be comparable. Serial testing should be performed using the same method. 0-1 month. AFP concentrations may reach or exceed 100,000 ng/mL after depending on gestational age and weight. 1-3 months 50 1000 ng/ml 3-6 months 10 500 ng/ml 6-12 months 3.0 100 ng/ml >1 year 0.0 8.3 ng/ml References Tsgee Y. et al. J. Ped Surg 1978;13:155-156 Cristina Tucker et al. Clin Chem Lab Med 2018;57:783-797 Florencia Us et al. Clin Chem 2014;7319-5826. Current interpretive data was last revised 2022. Testing performed by: , [facility], [place]., [address] Blood 08/14/2024 7:54 AM DOUBLE BACKER 08/14/2024 11:29 AM DOUBLE BACKER Fransisco Bergman MD LAB BLOOD ORDERABLES Fin al Result Performing Organization Address City/[facility]/RUST Co de Phone Number [facility] [address] [facility]. [facility] [place] [address] * Insulin, total (08/14/2024 7:54 AM DOUBLE BACKER) Insulin 11.7 2.6 - 25.0 mcIUnit/mL Comment:Testing performed by : [facility], [address] [place] [address]., [address] Blood 08/14/2024 7:54 AM DOUBLE BACKER 08/14/2024 9:54 AM DOUBLE BACKER Fransisco Bergman MD LAB BLOOD ORDERABLES Fin al Result Performing Organization Address City/[facility]/RUST Co de Phone Number [facility] [address] [facility]. [facility] [place] [address] * (ABNORMAL) Protime-INR (08/14/2024 7:54 AM DOUBLE BACKER) PT 14.7(H) 9.7 - 13.0 sec INR 1.35(H) 0.90 - 1.20 [facility] P[facility] Comment: Interpretive data Oral anticoagulant therapeutic ranges: Venous thromboembolism prophylaxis or treatment: 2.0-3.0 CARDIOLOGY Standard range: 2.0-3.0 High-intensity range: 2.5-3.5 Refer to indication-specific guidelines for appropriate target ranges for prosthetic heart valve replacement. Current interpretive data was last revised on 2019. Blood 08/14/2024 7:54 AM DOUBLE BACKER 08/14/2024 7:59 AM DOUBLE BACKER Fransisco Bergman MD LAB BLOOD ORDERABLES Fin al Result Performing Organization Address [facility] de Phone Number [facility] PEREZ[facility] [address] [facility]. [facility] [place] [address] * Hemoglobin A1c (08/14/2024 7:54 AM DOUBLE BACKER) Hgb A1C 5.2 4.0 - 5.6 % Estimated Average Glucose 103 mg/dL MAKI RICHARDCH Comment: The ADA recommends reporting an estimated Average Glucose (eAG) with all Hemoglobin A1c results using the equation derived from a study of 507 normal and diabetic adults. Minority populations were underrepresented and children were not included. (Diabetes Care 31:3796-5566, 2008). The eAG is not equivalent to a fasting glucose. Blood 08/14/2024 7:54 AM DOUBLE BACKER 08/14/2024 7:59 AM DOUBLE BACKER Fransisco Bergman MD LAB BLOOD ORDERABLES Fin al Result Performing Organization Address [facility] de Phone Number [facility] P[facility] [address] [facility]. [facility] [place] [address] * (ABNORMAL) Bilirubin, direct (08/14/2024 7:54 AM DOUBLE BACKER) Pathologist [facility] Bilirubin, direct 0.4(H) 0.1 - 0.3 mg/dL Blood 08/14/2024 7:54 AM DOUBLE BACKER 08/14/2024 7:59 AM DOUBLE BACKER Fransisco Bergman MD LAB BLOOD ORDERABLES Fin al Result Performing Organization Address [facility] de Phone Number [facility] [address] [facility] [place] [address] * Lipid panel (08/14/2024 7:54 AM DOUBLE BACKER) Cholesterol 153 30 - 199 mg/dL Comment: Interpretive Data Ages < or = 19 years Acceptable: <170 mg/dL Borderline high: 170-199 mg/dL High: >or= 200 mg/dL Ages > or = 20 years Desirable: <200 mg/dL Borderline high: 200-239 mg/dL High: >or= 240 mg/dL Literature References: 1. Expert Panel on Integrated Guidelines for Cardiovascular Health and Risk Reduction in Children and Adolescents. Pediatrics 2011;128:S213 2. NCEP Expert Panel. Circulation 2004;110:227 Current Interpretive Data was last revised on 2018. Triglycerides 70 <=149 mg/dL MAKI ALEJANDRO Comment: Interpretive Data Ages < or = 9 years Acceptable: <75 mg/dL Borderline high: 75-99 mg/dL High: >or= 100 mg/dL Ages 10 to 20 years Acceptable: <90 mg/dL Borderline high: 90-129 mg/dL High: >or= 130 mg/dL Ages > or = 20 years Desirable: <150 mg/dL Borderline high: 150-199 mg/dL High: 200-499 mg/dL Very high: >or= 499 mg/dL Literature References: 1. Expert Panel on Integrated Guidelines for Cardiovascular Health and Risk Reduction in Children and Adolescents. Pediatrics 2011;128:S213 2. NCEP Expert Panel. Circulation 2004;110:227 Current Interpretive Data was last revised on 2018. HDL 55 >=40 mg/dL MAKI ALEJANDRO Comment: Interpretive Data Ages < or = 19 years Acceptable: >45 mg/dL Borderline low: 40-45 mg/dL Low: <40 mg/dL Ages > or = 20 years Desirable: >or= 60 mg/dL Low: <40 mg/dL Literature References: 1. Expert Panel on Integrated Guidelines for Cardiovascular Health and Risk Reduction in Children and Adolescents. Pediatrics 2011;128:S213 2. NCEP Expert Panel. Circulation 2004;110:227 Current Interpretive Data was last revised on 2018. LDL, calculated 84 <=129 mg/dL MAKI ALEJANDRO Comment: Interpretive Data Ages < or = 19 years Acceptable: <110 mg/dL Borderline high: 110-129 mg/dL High: >or= 130 mg/dL Ages > or = 20 years Optimal: <100 mg/dL Near optimal: 100-129 mg/dL Borderline high: 130-159 mg/dL High: >160 mg/dL Calculated using the James LDL-C estimating equation. This equation was implemented on 2024. Prior to this date LDL-C was estimated using the Friedewald equation. Literature References: 1. Expert Panel on Integrated Guidelines for Cardiovascular Health and Risk Reduction in Children and Adolescents. Pediatrics 2011;128:S213 2. NCEP Expert Panel. Circulation 2004;110:227 3. James Isaac et al. MALIK Cardiol. 2020 October 17;5(5):540-548. doi: 10.1001/jamacardio.2020.0013 Current Interpretive Data was last revised on 2024. Non-HDL Cholesterol 98 mg/dL MAKI ALEJANDRO Comment: Interpretive Data Ages < or = 19 years Acceptable: <120 mg/dL Borderline high: 120-144 mg/dL High: >145 mg/dL Ages > or = 20 years When triglycerides are >200 mg/dL, Non-HDL cholesterol is a secondary target of therapy with treatment goals that are 30 mg/dL greater than the LDL cholesterol target. Literature References: 1. Expert Panel on Integrated Guidelines for Cardiovascular Health and Risk Reduction in Children and Adolescents. Pediatrics 2011;128:S213 2. NCEP Expert Panel. Circulation 2004;110:227 Current Interpretive Data was last revised on 2018. Chol/HDL ratio 3 CERSUSHILA ALEJANDRO Blood 08/14/2024 7:54 AM DOUBLE BACKER 08/14/2024 7:59 AM DOUBLE BACKER us Fransisco Bergman MD LAB BLOOD ORDERABLES Fin al Result [facility] [address] [facility]. [place] [address] * (ABNORMAL) Comprehensive metabolic panel (08/14/2024 7:54 AM DOUBLE BACKER) Sodium 140 135 - 145 mmol/L Potassium, pl 4.6 3.3 - 4.9 mmol/L CERNER [facility] Chloride 105 97 - 110 mmol/L [facility]ERNER [facility] CO2 26 22 - 32 mmol/L [facility]ER [facility] Anion gap 9 2 - 15 mmol/L [facility] BUN 15 6 - 25 mg/dL [facility] Creatinine 0.78(L) 0.80 - 1.30 mg/dL [facility] Glucose 95 70 - 199 mg/dL [facility] Comment: Interpretive Data Fasting glucose >/= 126 mg/dl is diagnostic for diabetes. Fasting is defined as no caloric intake for at least 8 hours. Fasting glucose between 100 mg/dl to 125 mg/dl is diagnostic of prediabetes. In a patient with classic symptoms of hyperglycemia or hyperglycemic crisis, a random glucose >/= 200 mg/dl is diagnostic for diabetes. In the absence of unequivocal hyperglycemia, results should be confirmed by repeat testing. The classification and Diagnosis of Diabetes Diabetes Care 2021; 46: S19-S40. Current interpretive data was last revised 2022. Calcium 9.6 8.5 - 10.3 mg/dL [facility]ER [facility] Bilirubin, total 1.1 0.1 - 1.2 mg/dL [facility] Protein, pl 7.0 6.5 - 8.5 g/dL [facility] Albumin 3.3(L) 3.5 - 5.0 g/dL [facility] Alk phos 191(H) 40 - 130 Units/L [facility] ALT 42 7 - 55 Units/L [facility] AST 70(H) 10 - 50 Units/L [facility] Blood 08/14/2024 7:54 AM DOUBLE BACKER 08/14/2024 7:59 AM DOUBLE BACKER us Fransisco Bergman MD LAB BLOOD ORDERABLES Fin al Result [facility] [address] [facility]. [place] [address] * MRI Abdomen Liver W WO Contrast (08/14/2024 7:35 AM DOUBLE BACKER) Anatomical Region Laterality Modality Body N/A Magnetic Resonan ce 08/14/2024 1:09 PM DOUBLE BACKER Impressions 08/14/2024 1:12 PM DOUBLE BACKER 1. A subcentimeter LR2 lesion in hepatic segment 8 appears similar to 06/05/23. Recommend attention on follow-up imaging. 2. Morphologic features of cirrhosis and stigmata of portal hypertension with splenomegaly and esophagogastric varices. 3. Mild diffuse hepatic steatosis (calculated fat fraction 5.4%). Dictated by: Dorian Hurt M.D. The radiology attending physician has personally reviewed this study, and had reviewed and/or edited this written report and agrees with it. Electronically signed by: Vera James M.D. Narrative 08/14/2024 1:12 PM DOUBLE BACKER EXAMINATION: MAGNETIC RESONANCE IMAGING OF THE ABDOMEN WITH AND WITHOUT CONTRAST HISTORY: Cirrhosis, HCC screening TECHNIQUE: Magnetic resonance imaging of the abdomen was performed prior to and following the uneventful administration of intravenous Gadolinium contrast. Protocol: Liver Contrast: gadoterate 20 mL COMPARISON: 11/06/2023 MRI, 02/16/2024 ultrasound FINDINGS: Liver: Mild diffuse hepatic steatosis (calculated fat fraction 5.4%). No iron deposition. Morphologic features of cirrhosis including surface nodularity and enlargement of the left hemiliver. - Bile ducts: No biliary ductal dilatation. - Focal liver lesions: Centrally hypoenhancing lesion in segment 8 measuring 9 mm demonstrating mild peripheral arterial enhancement with unchanged appearance on delayed phases compatible with an LR2 designation. This lesion is unchanged in size from 06/05/2023. Scattered hepatic cysts. - Vasculature: Patent hepatic vasculature. No evidence of residual portosplenic confluence/superior mesenteric vein thrombus. Gallbladder: Normal. Pancreas: Normal. Spleen: Mild splenomegaly. Adrenals: Normal. Kidneys: Left renal cyst. Kidneys otherwise normal. No hydronephrosis. Other Findings: Esophagogastric varices. Duodenal diverticulum (series 31 image 64). Imaged lung bases are clear. Heart size is normal. No abdominal lymphadenopathy. Abdominal aorta is normal in course and caliber. Procedure Note Vera James MD - 08/14/2024 EXAMINATION: MAGNETIC RESONANCE IMAGING OF THE ABDOMEN WITH AND WITHOUT CONTRAST HISTORY: Cirrhosis, HCC screening TECHNIQUE: Magnetic resonance imaging of the abdomen was performed prior to and following the uneventful administration of intravenous Gadolinium contrast. Protocol: Liver Contrast: gadoterate 20 mL COMPARISON: 11/06/2023 MRI, 02/16/2024 ultrasound FINDINGS: Liver: Mild diffuse hepatic steatosis (calculated fat fraction 5.4%). No iron deposition. Morphologic features of cirrhosis including surface nodularity and enlargement of the left hemiliver. - Bile ducts: No biliary ductal dilatation. - Focal liver lesions: Centrally hypoenhancing lesion in segment 8 measuring 9 mm demonstrating mild peripheral arterial enhancement with unchanged appearance on delayed phases compatible with an LR2 designation. This lesion is unchanged in size from 06/05/2023. Scattered hepatic cysts. - Vasculature: Patent hepatic vasculature. No evidence of residual portosplenic confluence/superior mesenteric vein thrombus. Gallbladder: Normal. Pancreas: Normal. Spleen: Mild splenomegaly. Adrenals: Normal. Kidneys: Left renal cyst. Kidneys otherwise normal. No hydronephrosis. Other Findings: Esophagogastric varices. Duodenal diverticulum (series 31 image 64). Imaged lung bases are clear. Heart size is normal. No abdominal lymphadenopathy. Abdominal aorta is normal in course and caliber. IMPRESSION: 1. A subcentimeter LR2 lesion in hepatic segment 8 appears similar to 06/05/23. Recommend attention on follow-up imaging. 2. Morphologic features of cirrhosis and stigmata of portal hypertension with splenomegaly and esophagogastric varices. 3. Mild diffuse hepatic steatosis (calculated fat fraction 5.4%). Dictated by: Dorian Hurt M.D. The radiology attending physician has personally reviewed this study, and had reviewed and/or edited this written report and agrees with it. Electronically signed by: Vera James M.D. Fransisco Bergman MD [facility] [place] MRI PROCEDURES Final Result from Last 3 Months Insurance [facility] ACCESS CHOICE ANTHEM ACCESS CHOICE Advance Directives For more information, please contact: [phone] * Full Code (Latest Code Status on File) Date Activated Date Inactivated Comments 07/28/2023 4:46 PM 07/29/2023 12:06 AM Care Teams [employer] Template Maker Relationship Specialty Start Date End Date No, Physician PCP - General 05/02/24
--- OUTSIDE RECORDS SUMMARY | 2024-11-07 09:46 | XMS_ITS | Data Portability ---
Author Organization [place] - [email or web address], Main Office Address [address] [place] [address] Assessment No assessment recorded. Plan of Treatment Reminders Order Date Submit Date Provider Last Modified By Organization Details Last Modified Time Details Appointments None record ed. Lab CBC w/ auto diff 2022 023 [email or web address] Not available 3 07:54:32 testos terone , free + total, serum 2022 023 [email or web address] Not available 3 07:54:32 TSH, serum or plasma 2022 023 [email or web address] Not available 3 07:54:32 lipid panel, serum 2022 023 [email or web address] Not available 3 07:54:32 hepati c functi on panel, serum 2022 023 [email or web address] Not available 3 07:54:32 glycoh emoglo bin, total, blood 2022 023 [email or web address] Not available 3 07:54:32 O&P (ova & parasi migue), stool 2022 023 [email or web address] Not available 3 07:54:30 cultur e, stool 2022 023 [email or web address] Not available 3 07:54:31 C diff toxin A+B, qualit ative, stool 2022 023 [email or web address] Not available 3 07:54:31 wbc, stool 2022 023 [email or web address] Not available 3 07:54:31 giardi a lambli a Ag, stool 2022 023 [email or web address] 477 Not available 3 07:54:31 cultur e, stool 2022 023 [email or web address] Not available 3 07:54:31 PSA, serum or plasma 2022 023 [email or web address] Not available 3 07:54:31 urinal ysis comple te, reflex cultur e 2022 023 [email or web address] Not available 3 07:54:31 Referral orthop edic surgeo n referr al 2022 023 [email or web address] 3 [facility], [address], [place], [address], 3 13:51:07 Procedures None record ed. Surgeries None record ed. Imaging CT, abdome n + pelvis , w/ contra st - *Pleas e call pt to schedu le* 2022 023 [email or web address] 256 [facility], [address] [place], [address], 4 08:55:45 Medication Orders Medrol (Jesse) 4 mg tablet s in a dose pack 2023 024 JOSE MANUEL [id number], [address] [place], [address], 4 16:51:15 cetiri zine 10 mg tablet 2023 024 [email or web address] [id number], [address] [place], [address], 4 11:41:57 zolpid em 10 mg tablet 2022 023 [facility], [address] [place], [address], 4 16:07:52 tadala niall 20 mg tablet 2022 023 [email or web address] [facility], [address] [place], [address], 4 07:53:43 Patient TargetsNo targets recorded. Patient InstructionsNo instructions recorded. Reason for Referral Orthopedic Surgeon Referral for Acquired trigger finger Referring Physician: Marta Fox, [facility] Medicine, Encounter Date: 01/25/2023 Results Created Date Observation Date Name Description Value Unit Range Abnormal Flag Note LastModifiedBy Organization Detail LastModifiedTime 02/04/2002/05/2023 CLOST RIDIU M DIFFI CILE TOXIN /GDH W/REF L TO PCR clostridium difficile toxin/gdh w/refl to PCR SEE NOTE CLOST RIDIU M DIFFI CILE TOXIN /GDH W/REF L TO PCR Micro Numbe r: [id number] Test Statu s: Final Speci men Sourc e: Stool Speci men Quali ty: Adequ ate GDH Antig en: Not Detec kim Toxin A and B: Not Detec kim COMME NT: No toxig enic C. diffi cile detec kim For addit ional infor jessica nolasco refer to http: //[facility] gabrielle bobo.Que stDia gnost ics.c om/fa q/FAQ 136 (This link is being provi ded for infor patty nal/e ducat ional purpo ses only. ) Not Available [facility] [employer] [facility] [address] [place] [address], [address], 02/05/2023 17:13:03 02/04/20 23 02/09/2023 LIPID PANEL , STAND ESTHER cholesterol, total 140 mg/dL <200 normal Not Available [facility] [employer] [facility] [address] [place], [address], 02/09/2023 13:32:56 02/04/20 23 02/09/2023 LIPID PANEL , STAND ESTHER HDL cholesterol 46 mg/dL > or = 40 normal Not Available [facility] [address] [place], [address], 02/09/2023 13:32:56 02/04/20 23 02/09/2023 LIPID PANEL , STAND ESTHER triglyceride s 83 mg/dL <150 normal Not Available [facility] [address] [place], [address], 02/09/2023 13:32:56 02/04/2002/09/2023 LIPID PANEL , STAND ESTHER LDL-choleste rol 77 mg/dL _(shira c) normal Refer ence range : <100 Wero able range <100 mg/dL for prima ry preve ntion ; <70 mg/dL for patie nts with CHD or diabe tic patie nts with > or = 2 CHD risk facto rs. LDL-C is now calcu lated using the Ame n-Hop [facility]airon n, which is a valid ated novel emmanuel lovett than the Fried kaushal equat ion in the estim ation of LDL-C . Ame bobo SS et al. MALIK. 2013; 310(1 9): 2061- 2068 (http ://ed ucati on.Qu Jayy smith Ropatec. com/f aq/FA Q164) Not Available [facility] [address] [place], [address], 02/09/2023 13:32:56 02/04/20 23 02/09/2023 LIPID PANEL , STAND ESTHER chol/HDLC ratio 3.0 (calc ) <5.0 normal Not Available [facility] [address] [place], [address], 02/09/2023 13:32:56 02/04/20 23 02/09/2023 LIPID PANEL , STAND ESTHER non HDL cholesterol 94 mg/dL _(shira c) <130 normal For patie nts with diabe migue plus 1 major ASCVD risk facto r, treat ing to a non-H DL-C goal of <100 mg/dL (LDL- C of <70 mg/dL ) is avis potts optio n. Not Available [address] [place], [address], 02/09/2023 13:32:56 02/04/20 23 02/09/2023 HEPAT IC FUNCT ION PANEL protein, total 6.4 g/dL 6.1-8. 1 normal Not Available [address], [address], 02/09/2023 13:32:57 02/04/2002/09/2023 HEPAT IC FUNCT ION PANEL albumin 3.8 g/dL 3.6-5. 1 normal Not Available [address] [address] [place], [address], 02/09/2023 13:32:57 02/04/2002/09/2023 HEPAT IC FUNCT ION PANEL globulin 2.6 g/dL_ (calc ) 1.9-3. 7 normal Not Available [address] [address] [place], [address], 02/09/2023 13:32:57 02/04/2002/09/2023 HEPAT IC FUNCT ION PANEL albumin/glob ulin ratio 1.5 (calc ) 1.0-2. 5 normal Not Available [address] [place], [address], 02/09/2023 13:32:57 02/04/2002/09/2023 HEPAT IC FUNCT ION PANEL bilirubin, total 1.1 mg/dL 0.2-1. 2 normal Not Available [address] [address] [place], [address], 02/09/2023 13:32:57 02/04/2002/09/2023 HEPAT IC FUNCT ION PANEL bilirubin, direct 0.3 mg/dL < or = 0.2 high Not Available [address], [address], 02/09/2023 13:32:57 02/04/2002/09/2023 HEPAT IC FUNCT ION PANEL bilirubin, indirect 0.8 mg/dL _(shira c) 0.2-1. 2 normal Not Available [address], [address], 02/09/2023 13:32:57 02/04/2002/09/2023 HEPAT IC FUNCT ION PANEL alkaline phosphatase 123 U/L 35-144 normal Not Available [facility] [employer] [address], [address], 02/09/2023 13:32:57 02/04/20 23 02/09/2023 HEPAT IC FUNCT ION PANEL AST 69 U/L 10-35 high Not Available [address], [address], 02/09/2023 13:32:57 02/04/2002/09/2023 HEPAT IC FUNCT ION PANEL ALT 47 U/L 9-46 high Not Available [address], [address], 02/09/2023 13:32:57 02/04/2002/09/2023 CBC (INCL UDES DIFF/ PLT) white blood cell count 3.7 thous and/u L 3.8-10 .8 low Not Available [address], [address], 02/09/2023 13:32:58 02/04/20 23 02/09/2023 CBC (INCL UDES DIFF/ PLT) red blood cell count 4.85 lizzy on/uL 4.20-5 .80 normal Not Available [address], [address], 02/09/2023 13:32:58 02/04/2002/09/2023 CBC (INCL UDES DIFF/ PLT) hemoglobin 15.4 g/dL 13.2-1 7.1 normal Not Available [address], [address], 02/09/2023 13:32:58 02/04/20 23 02/09/2023 CBC (INCL UDES DIFF/ PLT) hematocrit 45.9 % 38.5-5 0.0 normal Not Available [address], [address], 02/09/2023 13:32:58 02/04/20 23 02/09/2023 CBC (INCL UDES DIFF/ PLT) MCV 94.6 fL 80.0-1 00.0 normal Not Available [address], [address], 02/09/2023 13:32:58 02/04/2002/09/2023 CBC (INCL UDES DIFF/ PLT) MCH 31.8 pg 27.0-3 3.0 normal Not Available [address], [address], 02/09/2023 13:32:58 02/04/2002/09/2023 CBC (INCL UDES DIFF/ PLT) MCHC 33.6 g/dL 32.0-3 6.0 normal Not Available [address], [address], 02/09/2023 13:32:58 02/04/2002/09/2023 CBC (INCL UDES DIFF/ PLT) RDW 13.8 % 11.0-1 5.0 normal Not Available [address], [address], 02/09/2023 13:32:58 02/04/20 23 02/09/2023 CBC (INCL UDES DIFF/ PLT) platelet count 95 thous and/u L 140-40 0 low Not Available [address], [address], 02/09/2023 13:32:58 02/04/20 23 02/09/2023 CBC (INCL UDES DIFF/ PLT) MPV 11.3 fL 7.5-12 .5 normal Not Available [address], [address], 02/09/2023 13:32:58 02/04/2002/09/2023 CBC (INCL UDES DIFF/ PLT) absolute neutrophils 2279 cells /uL 1500-7 800 normal Not Available [address], [address], 02/09/2023 13:32:58 02/04/20 23 02/09/2023 CBC (INCL UDES DIFF/ PLT) absolute lymphocytes 1103 cells /uL 850-39 00 normal Not Available [address], [address], 02/09/2023 13:32:58 02/04/20 23 02/09/2023 CBC (INCL UDES DIFF/ PLT) absolute monocytes 207 cells /uL 200-95 0 normal Not Available [address], [address], 02/09/2023 13:32:58 02/04/20 23 02/09/2023 CBC (INCL UDES DIFF/ PLT) absolute eosinophils 81 cells /uL 15-500 normal Not Available [address], [address], 02/09/2023 13:32:58 02/04/20 23 02/09/2023 CBC (INCL UDES DIFF/ PLT) absolute basophils 30 cells /uL 0-200 normal Not Available [address] [place], [address], 02/09/2023 13:32:58 02/04/20 23 02/09/2023 CBC (INCL UDES DIFF/ PLT) neutrophils 61.6 % normal Not Available [facility] [address], [address], 02/09/2023 13:32:58 02/04/20 23 02/09/2023 CBC (INCL UDES DIFF/ PLT) lymphocytes 29.8 % normal Not Available [facility] [address], [address], 02/09/2023 13:32:58 02/04/20 23 02/09/2023 CBC (INCL UDES DIFF/ PLT) monocytes 5.6 % normal Not Available [facility] [address], [address], 02/09/2023 13:32:58 02/04/20 23 02/09/2023 CBC (INCL UDES DIFF/ PLT) eosinophils 2.2 % normal Not Available [facility] [address], [address], 02/09/2023 13:32:58 02/04/20 23 02/09/2023 CBC (INCL UDES DIFF/ PLT) basophils 0.8 % normal Not Available [facility] [address], [address], 02/09/2023 13:32:58 02/04/2002/09/2023 CBC (INCL UDES DIFF/ PLT) comment(s) Revie w of the perip heral smear revea ls decre ased numbe rs of plate lets. Giant plate lets noted . Revie w of perip heral smear confi isai autom ated resul ts. Not Available [facility] [address], [address], 02/09/2023 13:32:58 02/04/20 23 02/09/2023 URINA LYSIS , COMPL ETE W/REF KATLYN TO CULTU RE color YELLOW yellow normal Not Available [address], [address], 02/09/2023 13:32:59 02/04/20 23 02/09/2023 URINA LYSIS , COMPL ETE W/REF KATLYN TO CULTU RE appearance CLEAR clear normal Not Available [address], [address], 02/09/2023 13:32:59 02/04/20 23 02/09/2023 URINA LYSIS , COMPL ETE W/REF KATLYN TO CULTU RE specific gravity 1.026 1.001- 1.035 normal Not Available [address], [address], 02/09/2023 13:32:59 02/04/20 23 02/09/2023 URINA LYSIS , COMPL ETE W/REF KATLYN TO CULTU RE pH 5.5 5.0-8. 0 normal Not Available [address], [address], 02/09/2023 13:32:59 02/04/20 23 02/09/2023 URINA LYSIS , COMPL ETE W/REF KATLYN TO CULTU RE glucose NEGATI VE negati ve normal Not Available [address], [address], 02/09/2023 13:32:59 02/04/20 23 02/09/2023 URINA LYSIS , COMPL ETE W/REF KATLYN TO CULTU RE bilirubin NEGATI VE negati ve normal Not Available [address], [address], 02/09/2023 13:32:59 02/04/20 23 02/09/2023 URINA LYSIS , COMPL ETE W/REF KATLYN TO CULTU RE ketones NEGATI VE negati ve normal Not Available [address] [place], [address], 02/09/2023 13:32:59 02/04/20 23 02/09/2023 URINA LYSIS , COMPL ETE W/REF KATLYN TO CULTU RE occult blood NEGATI VE negati ve normal Not Available [address], [address], 02/09/2023 13:32:59 02/04/20 23 02/09/2023 URINA LYSIS , COMPL ETE W/REF KATLYN TO CULTU RE protein NEGATI VE negati ve normal Not Available [address], [address], 02/09/2023 13:32:59 02/04/20 23 02/09/2023 URINA LYSIS , COMPL ETE W/REF KATLYN TO CULTU RE nitrite NEGATI VE negati ve normal Not Available [address], [address], 02/09/2023 13:32:59 02/04/20 23 02/09/2023 URINA LYSIS , COMPL ETE W/REF KATLYN TO CULTU RE leukocyte esterase NEGATI VE negati ve normal Not Available [address], [address], 02/09/2023 13:32:59 02/04/20 23 02/09/2023 URINA LYSIS , COMPL ETE W/REF KATLYN TO CULTU RE WBC NONE SEEN /hpf < or = 5 normal Not Available [facility] [address], [address], 02/09/2023 13:32:59 02/04/20 23 02/09/2023 URINA LYSIS , COMPL ETE W/REF KATLYN TO CULTU RE RBC NONE SEEN /hpf < or = 2 normal Not Available [facility] [address], [address], 02/09/2023 13:32:59 02/04/20 23 02/09/2023 URINA LYSIS , COMPL ETE W/REF KATLYN TO CULTU RE squamous epithelial cells NONE SEEN /hpf < or = 5 normal Not Available [address], [address], 02/09/2023 13:32:59 02/04/20 23 02/09/2023 URINA LYSIS , COMPL ETE W/REF KATLYN TO CULTU RE bacteria NONE SEEN /hpf none seen normal Not Available [address], [address], 02/09/2023 13:32:59 02/04/20 23 02/09/2023 URINA LYSIS , COMPL ETE W/REF KATLYN TO CULTU RE hyaline cast NONE SEEN /lpf none seen normal Not Available [address], [address], 02/09/2023 13:32:59 02/04/20 23 02/09/2023 URINA LYSIS , COMPL ETE W/REF KATLYN TO CULTU RE note This urine was ebony zed for the prese nce of WBC, RBC, bacte bret, casts , and other forme d eleme nts. Only those eleme nts seen were repor kim. Not Available [address], [address], 02/09/2023 13:32:59 02/04/2002/09/2023 REFLE XIVE URINE CULTU RE reflexive urine culture NO CULTU RE INDIC ATED Not Available [address], [address], 02/09/2023 13:32:59 02/04/2002/09/2023 TSH TSH 2.08 mIU/L 0.40-4 .50 normal Not Available [address], [address], 02/09/2023 13:33:00 02/04/20 23 02/09/2023 PSA, TOTAL PSA, total 0.50 NG/mL < or = 4.00 normal The total PSA value from this assay syste m is stand ardiz ed again st the WHO stand esther. The test resul t will be appro ximat deepa 20% lower when maynor red to the equim olar- stand ardiz ed total PSA (Aly man Coult er). Maynor rison of seria l PSA resul ts shoul d be inter prete d with this fact in mind. This test was perfo rmed using the Sieme ns chemi lumin escen t metho d. Value s obtai sonal from diffe rent assay metho ds canno t be used inter mcknight eably . PSA level s, regar dless of value , shoul d not be inter prete d as absol [place] evide nce of the prese nce or absen ce of disea se. Not Available [employer] [facility] [address] [place], [address], 02/09/2023 13:33:00 02/04/2002/09/2023 HEMOG LOBIN A1C hemoglobin A1C 5.2 %_of_ total _HGB <5.7 normal For the purpo se of mami urena for the prese nce of diabe migue: <5.7% Consi stent with the absen ce of diabe migue 5.7-6 .4% Consi stent with incre ased risk for diabe migue (pred iabet es) > or =6.5% Consi stent with diabe migue This assay resul t is consi stent with a decre ased risk of diabe migue. Curre ntly, no conse nsus exist s yobani brwon use of hemog lobin A1c for diagn osis of diabe migue in child brock. Accor ding to Ameri can Diabe migue Assoc iatio n (ADA) guide lines , hemog lobin A1c <7.0% repre sents optim al contr ol in non-p regna nt diabe tic patie nts. Diffe rent metri cs may apply to speci fic patie nt popul ation s. Stand ards of Medic al Care in Diabe migue(A DA). Not Available Not Available 02/09/2023 13:33:01 02/04/20 23 02/09/2023 TESTO STERO NE, FREE (DIAL YSIS) AND TOTAL ,MS testosterone , total, MS 900 NG/dL 250-11 00 For addit ional infor jessica nolasco refer to https ://ed ucati on.qu doloresPathful. Ipropertyz/f aq/FA Q165 (This link is being provi ded for infor matissa nal/e ducat ional purpo ses only. ) (Note ) This test was devel oped and its ebony tical perfo rmanc e henrique cteri stics have been deter mined by [employer]. It has not been clear ed or appro april by the FDA. This assay has been valid ated pursu ant to the CLIA regul ation s and is used for clini shira purpo ses. Not Available [facility] [address] [place], [address], 02/09/2023 13:33:01 02/04/20 23 02/09/2023 TESTO STERO NE, FREE (DIAL YSIS) AND TOTAL ,MS testosterone , free 47 pg/mL 35.0-1 55.0 (Note ) This test was devel oped and its ebony tical perfo rmanc e henrique cteri stics have been deter mined by [employer]. It has not been clear ed or appro april by the FDA. This assay has been valid ated pursu ant to the CLIA regul ation s and is used for clini shira purpo ses. MDF med fusio n [address] [facility] [address] [place] [facility] [address] [phone] Lopez sawyer MD Not Available [facility] [address] [place], [address], 02/09/2023 13:33:01 02/04/20 23 02/09/2023 SALMO DILIP /SHIG RACHEL CULT, CAMPY EIA AND SHIGA TOXIN W/RFL E. COLI O157 CULT campylobacte r spp. Ag,EIA SEE NOTE CAMPY LOBAC TER SPP. AG,EI A Micro Numbe r: [id number] Test Statu s: Final Speci men Sourc e: Stool Speci men Quali ty: Adequ ate Campy Ag Resul t: Not Detec kim Refer ence Range : Not Detec kim Not Available [address] [address] [place], [address], 02/09/2023 13:33:02 02/04/20 23 02/09/2023 SALMO DILIP /SHIG RACHEL CULT, CAMPY EIA AND SHIGA TOXIN W/RFL E. COLI O157 CULT shiga toxins, EIA w/rfl to E.coli O157 culture SEE NOTE SHIGA TOXIN S, EIA W/RFL TO E.COL I O157 CULTU RE Micro Numbe r: [id number] Test Statu s: Final Speci men Sourc e: Stool Speci men Quali ty: Adequ ate Shiga Toxin : Not Detec kim Refer ence Range : Not Detec kim Not Available [address] [address] [place], [address], 02/09/2023 13:33:02 02/04/20 23 02/09/2023 SALMO DILIP /SHIG RACHEL CULT, CAMPY EIA AND SHIGA TOXIN W/RFL E. COLI O157 CULT salmonella and shigella, culture SEE NOTE SALMO DILIP AND SHIGE LLA, CULTU RE Micro Numbe r: [id number] Test Statu s: Final Speci men Sourc e: Stool Speci men Quali ty: Adequ ate Resul t: No Salmo dilip or Shige lla isola kim Not Available [address] [address] [place], [address], 02/09/2023 13:33:02 02/04/20 23 02/09/2023 FECAL LEUKO CYTE STAIN fecal leukocyte stain SEE NOTE FECAL LEUKO CYTE STAIN Micro Numbe r: [id number] Test Statu s: Final Speci men Sourc e: Stool Speci men Quali ty: Adequ ate Fecal Leuko cyte: Not Detec kim Refer ence Range : Not Detec kim Not Available [facility] [address] [address] [place], [address], 02/09/2023 13:33:03 02/04/20 23 02/09/2023 GIARD IA AG, EIA, STOOL giardia Ag, EIA, stool SEE NOTE GIARD IA AG, EIA, STOOL Micro Numbe r: [id number] Test Statu s: Final Speci men Sourc e: Stool Speci men Quali ty: Adequ ate Giard ia Resul t 1: Not Detec kim Refer ence Range : Not Detec kim NOTE: Due to inter mitte nt yasmeen ing, one negat sherri sampl e does not neces saril y rule out the prese nce of a mauricio itic infec tion. Not Available [facility] [address] [address] [place], [address], 02/09/2023 13:33:04 02/04/20 23 02/09/2023 OVA AND MAURICIO ITES, CONC AND PERM SMEAR ova and parasites, conc and perm smear SEE NOTE OVA AND MAURICIO ITES, CONC AND PERM SMEAR Micro Numbe r: [id number] Test Statu s: Final Speci men Sourc e: Stool Speci men Quali ty: Adequ ate ALEJANDRO NTRAT ION 1: No ova or mauricio ites seen TRICH ANANT 1: No ova or mauricio ites seen Routi ne Ova and Mauricio ite exam may not detec t some mauricio ites that occas ional ly cause diarr heal illne ss. Crypt ospor idium Antig en and/o r Cyclo spora and Isosp ora Exam may be order ed to detec t these mauricio ites. One negat sherri sampl e does not neces saril y rule out the prese nce of a mauricio itic infec tion. For addit ional infor jessica nolasco refer to https ://ed kaiati on.qu jayy smith Ropatec. com/f aq/FA Q203 (This link is being provi ded for infor patty oliver/ yaneth marte l purpo ses only. ) Not Available [facility] [address] [place], [address], 02/09/2023 13:33:04 04/21/20 23 04/22/2023 HEPAT IC FUNCT ION PANEL protein, total 7.0 g/dL 6.1-8. 1 normal Not Available [address], [address], 04/22/2023 03:38:21 04/21/20 23 04/22/2023 HEPAT IC FUNCT ION PANEL albumin 4.3 g/dL 3.6-5. 1 normal Not Available [address], [address], 04/22/2023 03:38:21 04/21/20 23 04/22/2023 HEPAT IC FUNCT ION PANEL globulin 2.7 g/dL_ (calc ) 1.9-3. 7 normal Not Available [address], [address], 04/22/2023 03:38:21 04/21/20 23 04/22/2023 HEPAT IC FUNCT ION PANEL albumin/glob ulin ratio 1.6 (calc ) 1.0-2. 5 normal Not Available [address], [address], 04/22/2023 03:38:21 04/21/20 23 04/22/2023 HEPAT IC FUNCT ION PANEL bilirubin, total 1.4 mg/dL 0.2-1. 2 high Not Available [address], [address], 04/22/2023 03:38:21 04/21/20 23 04/22/2023 HEPAT IC FUNCT ION PANEL bilirubin, direct 0.3 mg/dL < or = 0.2 high Not Available [address], [address], 04/22/2023 03:38:21 04/21/20 23 04/22/2023 HEPAT IC FUNCT ION PANEL bilirubin, indirect 1.1 mg/dL _(shira c) 0.2-1. 2 normal Not Available [employer] [address] [address] [place], [address], 04/22/2023 03:38:21 04/21/20 23 04/22/2023 HEPAT IC FUNCT ION PANEL alkaline phosphatase 156 U/L 35-144 high Not Available [facility] [employer] [address] [address] [place], [address], 04/22/2023 03:38:21 04/21/20 23 04/22/2023 HEPAT IC FUNCT ION PANEL AST 68 U/L 10-35 high Not Available [address], [address], 04/22/2023 03:38:21 04/21/20 23 04/22/2023 HEPAT IC FUNCT ION PANEL ALT 46 U/L 9-46 normal Not Available [employer] [address] [address] [place], [address], 04/22/2023 03:38:21 04/21/20 23 04/22/2023 CBC (INCL UDES DIFF/ PLT) white blood cell count 5.7 thous and/u L 3.8-10 .8 normal Not Available [employer] [address] [place] [address] [place], [address], 04/22/2023 03:38:23 04/21/20 23 04/22/2023 CBC (INCL UDES DIFF/ PLT) red blood cell count 5.16 lizzy on/uL 4.20-5 .80 normal Not Available [employer] [address], [address], 04/22/2023 03:38:23 04/21/20 23 04/22/2023 CBC (INCL UDES DIFF/ PLT) hemoglobin 16.6 g/dL 13.2-1 7.1 normal Not Available [facility] [address], [address], 04/22/2023 03:38:23 04/21/20 23 04/22/2023 CBC (INCL UDES DIFF/ PLT) hematocrit 48.0 % 38.5-5 0.0 normal Not Available [address], [address], 04/22/2023 03:38:23 04/21/20 23 04/22/2023 CBC (INCL UDES DIFF/ PLT) MCV 93.0 fL 80.0-1 00.0 normal Not Available [address], [address], 04/22/2023 03:38:23 04/21/20 23 04/22/2023 CBC (INCL UDES DIFF/ PLT) MCH 32.2 pg 27.0-3 3.0 normal Not Available [address], [address], 04/22/2023 03:38:23 04/21/20 23 04/22/2023 CBC (INCL UDES DIFF/ PLT) MCHC 34.6 g/dL 32.0-3 6.0 normal Not Available [address], [address], 04/22/2023 03:38:23 04/21/20 23 04/22/2023 CBC (INCL UDES DIFF/ PLT) RDW 13.2 % 11.0-1 5.0 normal Not Available [address], [address], 04/22/2023 03:38:23 04/21/20 23 04/22/2023 CBC (INCL UDES DIFF/ PLT) platelet count 146 thous and/u L 140-40 0 normal Not Available [address], [address], 04/22/2023 03:38:23 04/21/20 23 04/22/2023 CBC (INCL UDES DIFF/ PLT) MPV 11.2 fL 7.5-12 .5 normal Not Available [address], [address], 04/22/2023 03:38:23 04/21/20 23 04/22/2023 CBC (INCL UDES DIFF/ PLT) absolute neutrophils 3705 cells /uL 1500-7 800 normal Not Available [address], [address], 04/22/2023 03:38:23 04/21/20 23 04/22/2023 CBC (INCL UDES DIFF/ PLT) absolute lymphocytes 1391 cells /uL 850-39 00 normal Not Available [address], [address], 04/22/2023 03:38:23 04/21/20 23 04/22/2023 CBC (INCL UDES DIFF/ PLT) absolute monocytes 388 cells /uL 200-95 0 normal Not Available [address], [address], 04/22/2023 03:38:23 04/21/20 23 04/22/2023 CBC (INCL UDES DIFF/ PLT) absolute eosinophils 148 cells /uL 15-500 normal Not Available [address], [address], 04/22/2023 03:38:23 04/21/20 23 04/22/2023 CBC (INCL UDES DIFF/ PLT) absolute basophils 68 cells /uL 0-200 normal Not Available [address], [address], 04/22/2023 03:38:23 04/21/20 23 04/22/2023 CBC (INCL UDES DIFF/ PLT) neutrophils 65 % normal Not Available [address], [address], 04/22/2023 03:38:23 04/21/20 23 04/22/2023 CBC (INCL UDES DIFF/ PLT) lymphocytes 24.4 % normal Not Available [address], [address], 04/22/2023 03:38:23 04/21/20 23 04/22/2023 CBC (INCL UDES DIFF/ PLT) monocytes 6.8 % normal Not Available [address], [address], 04/22/2023 03:38:23 04/21/20 23 04/22/2023 CBC (INCL UDES DIFF/ PLT) eosinophils 2.6 % normal Not Available [facility] [address], [address], 04/22/2023 03:38:23 04/21/20 23 04/22/2023 CBC (INCL UDES DIFF/ PLT) basophils 1.2 % normal Not Available [address], [address], 04/22/2023 03:38:23 05/28/20 22 05/28/2022 imagi ng/di agnos tic resul t No observ ation record ed. [id number] [address], [place], [address], 08/17/2022 16:13:36 05/30/20 22 05/30/2022 imagi ng/di agnos tic resul t No observ ation record ed. [id number] [facility] [address], [place], [address], 08/17/2022 16:13:36 10/21/19 23 10/14/2022 cardi ac monit or No observ ation record ed. [email or web address] [facility] [address] [facility] [address] [facility] [address], [place], [address], 11/22/2022 16:50:53 04/27/20 23 04/27/2023 US, abdom en No observ ation record ed. [id number] [facility] [address], [place], [address], 06/07/2023 12:42:14 06/06/20 23 06/05/2023 MRI, abdom en, w/wo contr ast No observ ation record ed. [email or web address] [address], [place], [address], 06/07/2023 12:42:33 09/14/19 24 09/14/2023 US, abdom en No observ ation record ed. [address], [place], [address], 11/03/2023 14:23:57 11/07/19 24 11/06/2023 MRI, abdom en, w/wo contr ast No observ ation record ed. [address], [place], [address], 11/07/2023 12:41:43 07/27/19 25 07/27/2024 imagi ng/di agnos tic resul t No observ ation record ed. [facility] [address] [place], [address], 07/27/2024 15:11:08 Result Notes None recorded. Problems Name Problem SNOMED Code Status Onset Date Resolution Date Notes Provider Name and Address Organization Details Recorded Time Hypercholest erolemia 35751264 Active 2019 Not Available [facility] 3 16:12:26 Hypertensive disorder 24106907 Active 2019 Not Available [facility] 3 16:12:26 Acid reflux 818361218 Active 2019 Not Available [facility] 3 16:12:26 Diarrhea 38499481 Active 2022 Marta Fox MD [address] [facility], [facility] [address], [place], [address] , [facility] 3 14:28:30 Nocturia 116035501 Active 2022 Marta Fox MD [address], [address], [place], [address] , [place] [facility] 3 14:30:43 Insomnia 663437684 Active 2022 Marta Fox MD [address], [address], [place], [address] , [place] [facility] 3 14:38:29 Abdominal pain 58927522 Active 2022 Marta Fox MD [address], [address], [place], [address] , [place] [facility] 3 14:42:32 Erectile dysfunction 549941561 Active 2022 Marta Fox MD [address], [address], [place], [address] , [place] [facility] 3 14:44:24 Hyperlipidem ia 42789175 Active 2022 Marta Fox MD [address], [address], [place], [address] , [place] [facility] 3 14:47:02 Hyperglycemi a 74188276 Active 2022 Marat Fox MD [address], [address], [place], [address] , [place] [facility] 3 14:49:13 Acquired trigger finger 6571558 Active 2022 Marta Fox MD [address], [address], [place], [address] , [place] [facility] 3 15:23:21 Cirrhosis of liver 43155611 Active 2023 Marta Fox MD [address], [address], [place], [address] , [place] [facility] 4 14:08:52 Esophageal varices 83711248 Active 2023 EDG 06/27/232025 Marta Fox MD [address] [facility], [address], [place], [address] , [place] [facility] 4 14:09:11 Upper respiratory infection 72401711 Active 2023 LAVERN Baker [address] [facility], [address], [place], [address] , [place] [facility] 16:50:18 Problem Notes None recorded. Procedures Surgical History Date Name Laterality Status Provider Name and Address Organization Details Recorded Time 4 Cardiac Cath completed Roxie Ocampo RN [facility] [employer] [facility] 07/31/2023 08:04:31 4 EGD completed Roxie Ocampo RN [facility] [employer] [facility] 06/27/2023 12:05:34 0 colonoscopy completed Not Available [facility] 08/18/19 16:11:15 Imaging Results Imaging Date Name Status LastModified by [facility]iz [facility] Details LastModified Time 05/30/2022 imaging/diagn ostic result completed [id number] [address] [place] [address] [place] [address], [address], 08/17/2022 16:13:36 05/28/2022 imaging/diagn ostic result completed [id number] [address] [place] [address] [address], [place], [address], 08/17/2022 16:13:36 10/14/2022 site monitor completed [email or web address] [facility] [address] [place] [address] [address], [place], [address], 11/22/2022 16:50:53 04/27/2023 US, abdomen completed [email or web address] [address], [place], [address], 06/07/2023 12:42:14 06/05/2023 MRI, abdomen, w/wo contrast completed [address], [place], [address], 06/07/2023 12:42:33 09/14/2023 US, abdomen completed [address] [facility] [address], [place], [address], 11/03/2023 14:23:57 11/06/2023 MRI, abdomen, w/wo contrast completed [address], [place], [address], 11/07/2023 12:41:43 07/27/2024 imaging/diagn ostic result active [facility] [address] [facility], [place], [address], 07/27/2024 15:11:08 Procedure Notes None recorded. Medical Equipment None Reported. Allergies No known drug allergies Medications Name Sig Start Date Stop Date Status Note LastModified by Organization Details LastModified Time losartan 50 mg tablet TAKE 1 TABLET BY MOUTH EVERY DAY active Not Available Not Available No t Available amoxicillin 500 mg capsule TAKE 1 CAPSULE BY MOUTH EVERY 8 HOURS 04/16 completed Not Available Not Available Not Available atorvastati n 40 mg tablet TAKE 1 TABLET BY MOUTH EVERY DAY AT NIGHT active Not Available Not Available No t Available neomycin-po lymyxin-hyd rocort 3.5 mg/mL-10,00 0 unit/mL-1 % ear solution 06/21 completed Not Available Not Available Not Available cetirizine 10 mg tablet TAKE 1 TABLET BY MOUTH EVERY DAY DIRECTED 2023 active Not Available Not Available Not Avai lable azithromyci n 250 mg tablet active Not Available Not Available Not Available pravastatin 40 mg tablet TAKE 1 TABLET BY MOUTH ONCE DAILY 06/06 completed Not Available Not Available Not Available benzonatate 200 mg capsule active Not Available Not Available Not Available prednisone 20 mg tablet active Not Available Not Available Not Available isosorbide mononitrate ER 30 mg tablet,exte nded release 24 hr TAKE 1 TABLET BY MOUTH EVERY DAY 04/16 completed Not Available Not Available Not Available clindamycin HCl 150 mg capsule TAKE 2 CAPSULES BY MOUTH NOW THEN ONE EVERY 8 HOURS UNTIL GONE. 03/15 completed Not Available Not Available Not Available clopidogrel 75 mg tablet TAKE 1 TABLET BY MOUTH EVERY DAY active Not Available Not Available No t Available ciprofloxac in 500 mg tablet TAKE 1 TABLET BY MOUTH EVERY 12 HOURS FOR 7 DAYS 07/05 completed Not Available Not Available Not Available omeprazole 40 mg capsule,del ayed release TAKE 1 CAPSULE BY MOUTH EVERY DAY active Not Available Not Available No t Available aspirin 81 mg tablet,lazaro yed release Take 1 tablet every day by oral route. 2021 active Not Available Not Available Not Avai lable nadolol 20 mg tablet TAKE 1 TABLET BY MOUTH EVERY DAY active Not Available Not Available No t Available amoxicillin 875 mg tablet TAKE 1 TABLET BY MOUTH TWICE DAILY 01/25 completed Not Available Not Available Not Available famotidine 20 mg tablet Take 1 tablet twice a day by oral route. 03/15 completed Not Available Not Available Not Available trazodone 100 mg tablet TAKE 1 TABLET BY MOUTH EVERY DAY AT BEDTIME NEEDED 2024 active Not Available Not Available Not Avai lable cephalexin 500 mg capsule TAKE 1 CAPSULE BY MOUTH EVERY 6 HOURS UNTIL FINISHED 04/16 completed Not Available Not Available Not Available pantoprazol e 40 mg tablet,lazaro yed release Take 1 tablet every day by oral route for 90 days. active Not Available Not Available No t Available esomeprazol e magnesium 40 mg capsule,del ayed release 1 po qday 06/06 completed Not Available Not Available Not Available nitroglycer in 0.4 mg sublingual tablet PLEASE SEE ATTACHED FOR DETAILED DIRECTION S active Not Available Not Available No t Available codeine 10 mg-guaifene sin 100 mg/5 mL oral liquid TAKE [address]TE EVERY 6 HOURS NEEDED FOR COUGH active Not Available Not Available No t Available zolpidem 10 mg tablet TAKE 1 TABLET BY MOUTH ONCE DAILY 04/16 completed Not Available Not Available Not Available methylpredn isolone 4 mg tablets in a dose pack TAKE 6 TABLETS ON DAY 1 DIRECTED ON PACKAGE AND DECREASE BY 1 TAB EACH DAY FOR A TOTAL OF 6 DAYS active Not Available Not Available No t Available fluticasone propionate 50 mcg/actuati on nasal spray,suspe nsion 2 sprays IEN daily 03/15 completed Not Available Not Available Not Available atenolol 50 mg tablet TAKE 1 TABLET BY MOUTH TWICE DAILY 07/05 completed Not Available Not Available Not Available amoxicillin 875 mg-potassiu m clavulanate 125 mg tablet TAKE 1 TABLET BY MOUTH EVERY 12 HOURS 01/25 completed Not Available Not Available Not Available tadalafil 20 mg tablet 1/2 to 1 tab po 60 minutes prior to intercour se 07/05 completed Not Available Not Available Not Available nebivolol 20 mg tablet Take 1 tablet every day by oral route. 04/16 completed Not Available Not Available Not Available Eliquis 5 mg tablet TAKE 1 TABLET BY MOUTH TWICE A DAY FOR 2 WEEKS 04/16 completed Not Available Not Available Not Available ID NOW COVID-19 Test Kit TEST DIRECTED 03/15 completed Not Available Not Available Not Available Vitals Date Recorded Body mass index (BMI) Body height Oxygen saturation Oxygen saturation in Arterial blood by Pulse oximetry Heart rate Body temperature Body weight Systolic blood pressure Diastolic blood pressure Provider Name and Address Organization Details Last Updated DateTime 2 32.6 kg/m2 175.26 cm 92 % 92 % 67 /min 96.8 [degF] 551732. 91 g 122 mm[Hg] 90 mm[Hg] Not Available [facility] 3 16:11:58 Date Recorded Body mass index (BMI) Body height Oxygen saturation Oxygen saturation in Arterial blood by Pulse oximetry Heart rate Body temperature Body weight Systolic blood pressure Diastolic blood pressure Provider Name and Address Organization Details Last Updated DateTime 3 32.5 kg/m2 175.26 cm 97 % 97 % 74 /min 96.6 [degF] 06532.3 2 g 122 mm[Hg] 70 mm[Hg] Not Available [facility] 3 16:11:58 Date Recorded Oxygen saturation Oxygen saturation in Arterial blood by Pulse oximetry Heart rate Body temperature Body weight Systolic blood pressure Diastolic blood pressure Provider Name and Address Organization Details Last Updated DateTime 2 97 % 97 % 71 /min 97.7 [degF] 252902. 47 g 140 mm[Hg] 80 mm[Hg] Not Available [facility] 3 16:11:57 Date Recorded Body height Body mass index (BMI) Body weight Body temperature Heart rate Oxygen saturation Oxygen saturation in Arterial blood by Pulse oximetry Systolic blood pressure Diastolic blood pressure Provider Name and Address Organization Details Last Updated DateTime 3 175.26 cm 33.2 kg/m2 129230. 28 g 97 [degF] 52 /min 96 % 96 % 132 mm[Hg] 74 mm[Hg] Roxie Ocampo RN [facility] [employer] 3 14:21:07 Date Recorded Body weight Body mass index (BMI) Body height Body temperature Heart rate Respiratory rate Oxygen saturation Oxygen saturation in Arterial blood by Pulse oximetry Systolic blood pressure Diastolic blood pressure Provider Name and Address Organization Details Last Updated DateTime 4 760539. 69 g 33.1 kg/m2 175.26 cm 97.7 [degF] 88 /min 20 /min 98 % 98 % 148 mm[Hg] 90 mm[Hg] Irene Avina RN [facility] [email or web address] 4 16:10:48 Social History Question Answer Notes LastModified by Organizat ion Details LastModified Time Tobacco Smoking Status Never Smoker Not Available [facility] 08/17/2022 16:11:13 Do You Have An Advance Directive? No Information not available 04/16/2024 In The 14 Days Before Symptom Onset, Have You Had Close Contact With A Laboratory-confir med COVID-19 While That Case Was Ill? No Information not available 04/16/2024 In The 14 Days Before Symptom Onset, Have You Had Close Contact With A Person Who Is Under Investigation For COVID-19 While That Person Was Ill? No Information not available 04/16/2024 What Type Of Diet Are You Following? REGULAR [id number] Information not available 08/17/2022 Have There Been Any Changes To Your Family Or Social Situation? No Information no t available 04/16/2024 Do You Use Insect Repellent Routinely? No Information not available 04/16/2024 Where [facility] You Live? [facility] Information not available 04/16/2024 Do You Have A Medical Power Of Surgery Scheduling Coordinator? No Information not available 04/16/2024 How Many Children Do You Have? 2 Information not available 04/16/2024 Do You Have Any Pets? Yes Information not available 04/16/2024 What Is Your Relationship Status? Information not available 04/16/2024 Do You Use Your Seat Belt Or Car Seat Routinely? Yes Information not available 04/16/2024 Do You Have Smoke And Carbon Monoxide Detectors In Your Home? Yes Information not available 04/16/2024 Are You Passively Exposed To Smoke? No Information no t available 04/16/2024 Are There Any Smokers In Your House? No Information not available 04/16/2024 Do You Participate In Social Media? No Information not available 04/16/2024 Do You Use Sunscreen Routinely? No Information not available 04/16/2024 Has Tobacco Cessation Counseling Been Provided? No [id number] Information not available 08/17/2022 Have You Recently Traveled Abroad? No Information not available 04/16/2024 Do You Have Any Dietary Restrictions? No [id number] Information not available 08/17/2022 Sex: Unknown Functional Status Question Answer Note LastModified by Organizat ion Details LastModified Time Do you use any illicit or recreational drugs? No [id number] Information not available 08/17/2022 Do you or have you ever used any other forms of tobacco or nicotine? No [id number] Information not available 08/17/2022 What is your level of alcohol consumption? None [id number] Information not available 08/17/2022 Are you currently employed? Yes Information not available 04/16/2024 What is your occupation? [employer] Information not available 04/16/2024 What is your exercise level? None Information not available 04/16/2024 Mental Status Question Answer Note LastModified by Organizat ion Details LastModified Time Do you feel stressed (tense, restless, nervous, or anxious, or unable to sleep at night)? [id number] Information not available 08/17/2022 Family History Nothing Reported. Medical History Condition Response OBESITY Y INSOMNIA Y HIGH CHOLESTEROL / HYPERLIPIDEMIA Y Immunizations Vaccine Type Date Status Note Provider Nam e and Address Organization Details Recorded Time COVID-19 Non-[place] Vaccine, Product Unknown 10/30/2020 completed Not Available [employer] 16:13:34 Tdap 01/07/2020 completed Not Available [facility] 08/17/2022 16:13:34 Past Encounters Encounter ID Performer Location Encounter Start Date Encounter Closed Date Diagnosis/Indication Diagnosis SNOMED-CT Code Diagnosis ICD10 Code Diagnosis Note [id number] Marta Fox MD [facility] [place] [address] [place] [address] 03/15/2021 00:00:00 03/15/2021 20:52:13 [id number] Marta Fox MD [facility] [place] [address] [place] [address] 06/21/2021 00:00:00 06/21/2021 09:11:30 [id number] GEMA Bass [facility] [place] [address] [place] [address] 06/06/2022 00:00:00 06/06/2022 10:36:55 [id number] Marta Fox MD [facility] [place] [address] [place] [address] 06/30/2022 00:00:00 07/13/2022 18:48:03 [id number] Marta Fox MD [facility] [place] [address] [place] [address] 01/25/2023 14:14:39 01/25/2023 15:03:57 Diarrhea 42116579 R19.7 Hypertensive disorder 38 708810 I10 Nocturia 545286474 R35.1 Insomnia 948607479 G47.0 0 sleep hygeinefai led trazodonez olpidem 10 mg po qhs prn, give 8 hours between using med and driving/wo rkingrevie wed how to use properly and potential med s/e Abdominal pain 35624645 R10.9 N40.1 concerned with sudden onset erectile dysfunctio n, urinary symptoms, abd pain and diarrheaCT abd/pelvis needed to evaluate for severely enlarged prostate or colorectal mass Erectile dysfunction 860 812935 F52.21 Hyperlipidemia 88706258 E78.5 Hyperglycemia 31309941 R 73.9 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 Zyrtec, Mucinex DM, increased fluid intake Health Concerns Section Related Observation LastModified by Organization Detai ls LastModified Time None Recorded Concern Status LastModified by Organization Details LastModified Time None Recorded Advance Directives Directive N: Payers Encounter Date Sequence Insurance Name Policy Number Policy Booth Covered Member ID Booth Member ID Guarantor Name 01/25/2023 1 [facility]: ([place] [id number] Vikas Polk [id number] Vikas Polk 04/16/2024 1 [facility] [id number] Vikas Polk [id number] Vikas Polk Notes Date Note Type Note Provider Name and Address Organization Details Recorded Time 01/25/2023 text/html Here with a few concerns. bowel movements have been abnormal, first bm is normal in AM then pure liquid thereafter x 5-6 weeks. No blood in stools. Using prep H which helps. No abd pain. No heartburn/reflux/ belching. Colonoscopy done 07/17/2019 normal (5 year repeat). +fecal urgency. No fever. No change in diet. Vegetable intake may make it worse. No change in weight. He is getting up at night to urinate, not able to empty bladder, no dysuria, no hematuria. +Dribbling, +split stream, no hesitancy. having trouble staying asleep, can fall asleep but he is not able to stay asleep. has been having some issues with erectile dysfunction, trouble getting erections, keeping erections for several months. bilateral middle fingers get stuck for a long time. He has to press against firm object like table or wall to get them unstuck. +pain Marta Fox MD [address] [facility], [address] [address], [place], [address], [employer] [facility] 01/26/2023 09:56:17 04/16/2024 text/html Patient presents to clinic with 4-5 days of chest congestion, nasty cough, and sore throat. He reports doing better over time and feels much better today. Originally, patient producing green-yellow phlegm. No fever reported. Patient reports that his has noticed expiratory wheezing while sleeping, which is his main reason for coming in. (-) headaches, nausea, diarrhea, constipation, dysuria. PMHx: CAD, 3 stents in last 2 years, psoriasis. Shannon Tavarez, COMMERCIAL SALES MANAGER [address], [facility] [address], [place], [address], [employer] [facility] 04/16/2024 16:52:21
--- OUTSIDE RECORDS SUMMARY | 2024-11-07 09:46 | XMS_ITS | Encounter Summary ---
Author Organization [facility] Address [address] [place] [address] Phone Care Team Providers Care Efficiency Engineer Name Role Phone Marta Fox MD Primary Care Provider + No, Physician Primary Care Provider Encounter Details Date Type Department Care Team (Late st Contact Info) Description 10/27/2023 Orders Only [facility] Scanning, Provider Social History Tobacco Use Types Packs/Day Years Used Date Smoking Tobacco: Never Smokeless Tobacco: Never Alcohol Use Standard Drinks/Week Comments Yes 1 (1 standard drink = 0.6 oz pur e alcohol) AUDIT-C Answer Date Recorded Q1: How often do you have a drink containing alc ohol? Never 10/26/2023 Average Number of Drinks Not on file 024 Frequency of Binge Drinking Not on file 02/2024 PHQ-9 Answer Date Recorded PHQ-9 Total Score 8 09/21/2023 Personal Safety Answer Date Recorded Have you ever been in or are you currently in a harmful physical or emotional relationship or is someone making you feel afraid or unsafe? 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 Gender Identity Not on file Sexual Orientation Not on file documented as of this encounter Plan of Treatment Not on file documented as of this encounter Procedures Procedure Name Priority Date/Time Associated Diagnosis Comments SCAN - LABS 10/27/2023 documented in this encounter Results * SCAN - LABS (10/27/2023) us Provider Scanning Edited Result - Final documented in this encounter Visit Diagnoses Not on filedocumented in this encounter Care Teams Efficiency Engineer Relationship Specialty Start Date End Date Marta Fox MD [address] [place] [address] [address] PCP - General Family Medicine 06/04/20 05/01/24 No, Physician PCP - General 05/02/24 documented as of this encounter
--- OUTSIDE RECORDS SUMMARY | 2024-11-07 09:46 | XMS_ITS | Clinical Summary ---
Author Organization [facility] [address] Address [address] [place] [address] Care Team Providers Care Assistant Manager Pt Name Role Phone No, Physician Primary Care Provider [phone] Allergies No known active allergies Medications omeprazole [...] artery disease of n ative artery of [place] heart with stable angina pectoris 05/30/2022 Status post coronary artery stent placement 05/19 Essential hypertension 07/06/2020 Mixed hyperlipidemia 07/06/2020 Resolved Problems Problem Noted Date Diagnosed Date Resolved Date Unstable angina pectoris 07/13/202302/2024 CABALLERO (dyspnea on exertion) 07/06/2020 BMI 34.0-34.9,adult 07/06/2020 10/26/19 24 Encounters Date Type Department Care Team Description 08/19/2024 Results Follow-Up [facility] [address] [facility] 2nd Floor [address] [place] [address] Fransisco Bergman MD Lipid panel, Insulin, total, [id number], Tumor Marker, Additional followed-up results: 8 08/14/2024 7:45 AM TICKET SORTER Lab [facility] [address] [place] [address] Hepatic cirrhosis, unspecified hepatic cirrhosis type, unspecified whether ascites present (HCC); Insulin resistance 08/14/2024 6:42 AM TICKET SORTER - 08/14/2024 11:59 PM TICKET SORTER Hospital Encounter [facility] Imaging [address] [address] Hepatic cirrhosis, unspecified hepatic cirrhosis type, unspecified whether ascites present (HCC); Abnormal liver diagnostic imaging Discharge Disposition: Discharge to home or self care 08/14/2024 Results Follow-Up [facility] [address] [facility] 12th [place] [address] [place] [address] Fransisco Bergman MD MRI Abdomen Liver W WO Contrast from Last 3 Months Immunizations Immunization Administration Dates Next Due TD Preservative Free 06/19/2013 Tdap 01/07/2020 Surgical History Surgery Date Site/Laterality Comments ANGIOPLASTY 05/31/2023 Medical History Medical History Date Comments Hypertension Hyperlipidemia Acid indigestion GERD (gastroesophageal reflux disease) Heart disease 05/28/2023 Infectious viral hepatitis Blindness Family History Medical History Relation Name Comments Cancer Father Vikas Polk Relation Name Status Comments Father Vikas Polk (Age 52) Mother (Age 53) Social History Tobacco Use Types Packs/Day Years [...] on file Legal Sex Male 8:01 AM TICKET SORTER Gender Identity Not on file Sexual Orientation Not on file Obstetrics History Last Filed Vital Signs Vital Sign Reading Time Taken Comments Blood Pressure 144/86 06/21/2024 9:32 AM TICKET SORTER Pulse 82 06/21/2024 9:32 AM TICKET SORTER Temperature 36.6 C (97.8 F) 07/28/2023 12:49 PM TICKET SORTER Respiratory Rate 17 07/28/2023 7:12 PM TICKET SORTER Oxygen Saturation 96% 06/21/2024 9:32 AM TICKET SORTER Inhaled Oxygen Concentration - - Weight 102.1 kg (225 lb) 06/21/2024 9:32 AM TICKET SORTER Height 175.3 cm (5' 9 ) 06/21/2024 9:32 AM TICKET SORTER Body Mass Index 33.23 06/21/2024 9:32 AM TICKET SORTER Plan of Treatment Health Maintenance Due Date Last Done Comments Colon Cancer Screening-Colonoscopy 1966 Hepatitis C Screening 1966 Prostate Cancer Screening-PSA 1966 Hepatitis B Screening 1984 Regular Well Visit/Exam 18-64 1984 Pneumococcal vaccine <65 (1 of 2 - PCV) 1985 Zoster Vaccine (1 of 2) 2016 Depression Screening 09/20/2024 09/21/2023, 09/21/19 24 Influenza Vaccine (Season Ended) 2025 DTaP/Tdap/Td Vaccine (2 - Td or Tdap) 01/06/2030, 06/19/2013 Medical Devices Implanted Type Area Sales Service Coordinator Device Identifier Shelf Expiration Date Model / Serial / Lot [employer] Joyce Stent Coronary Drug Eluting Rapid Exchange Synergy Xd [id number] [place] Chromium [id number] - S0 - [id number] Implanted:Qty : 1 on 07/28/2023 by Gianluca Licnoa MD at [facility] Stent Left: Circumflex Coronary Artery [employer] Joyce 03/05/2025 [id number] / 0 / [id number] [employer] Joyce Synergy Xd Monorail 2.5mm 28mm 144cm Delivery System 1 Access [id number] - S0 - [id number] Implanted:Qty : 1 on 07/28/2023 by Gianluca Licona MD at [facility] Stent Left: Circumflex Coronary Artery [employer] Joyce 01/27/2024 [id number] / 0 / [id number] Bob Vascular Device Clsr Perclose Prostyle Sut-Mediatd Closure-Repai r Sys [id number] - S0 - [id number] Implanted:Qty : 1 on 07/28/2023 by Gianluca Licona MD at [facility] Vascular Closure Device Right: Femoral [employer] 04/18/2025 [id number] / 0 / [id number] Procedures Procedure Name Priority Date/Time Associated Diagnosis Comments EGFR Routine 08/14/2024 7:54 AM TICKET SORTER Hepatic cirrhosis, unspecified hepatic cirrhosis type, unspecified whether ascites present (HCC) Insulin resistance DIFFERENTIAL AUTO Routine 08/14/2024 7:5 4 AM TICKET SORTER Hepatic cirrhosis, unspecified hepatic cirrhosis type, unspecified whether ascites present (HCC) Insulin resistance BLOOD MISC TO [place] Routine 08/14/2024 7: 54 AM TICKET SORTER PROTIME-INR Routine 08/14/2024 7:54 AM TICKET SORTER Hepatic cirrhosis, unspecified hepatic cirrhosis type, unspecified whether ascites present (HCC) Insulin resistance CBC WITH AUTO DIFFERENTIAL Routine 08/14/2024 7:54 AM TICKET SORTER Hepatic cirrhosis, unspecified hepatic cirrhosis type, unspecified whether ascites present (HCC) Insulin resistance BILIRUBIN, DIRECT Routine 08/14/2024 7:5 4 AM TICKET SORTER Hepatic cirrhosis, unspecified hepatic cirrhosis type, unspecified whether ascites present (HCC) Insulin resistance COMPREHENSIVE METABOLIC PANEL Routine 08/14/2024 7:54 AM TICKET SORTER Hepatic cirrhosis, unspecified hepatic cirrhosis type, unspecified whether ascites present (HCC) Insulin resistance HEMOGLOBIN A1C Routine 08/14/2024 7:54 AM TICKET SORTER Hepatic cirrhosis, unspecified hepatic cirrhosis type, unspecified whether ascites present (HCC) Insulin resistance [id number], TUMOR MARKER Routine 08/14/2024 7:54 AM TICKET SORTER Hepatic cirrhosis, unspecified hepatic cirrhosis type, unspecified whether ascites present (HCC) Insulin resistance INSULIN, TOTAL Routine 08/14/2024 7:54 AM TICKET SORTER Hepatic cirrhosis, unspecified hepatic cirrhosis type, unspecified whether ascites present (HCC) Insulin resistance LIPID PANEL Routine 08/14/2024 7:54 AM TICKET SORTER Hepatic cirrhosis, unspecified hepatic cirrhosis type, unspecified whether ascites present (HCC) Insulin resistance MRI ABDOMEN LIVER W WO CONTRAST Schedule Routine, Read Routine (OP Routine) 08/14/2024 7:35 AM TICKET SORTER Hepatic cirrhosis, unspecified hepatic cirrhosis type, unspecified whether ascites present (HCC) Abnormal liver diagnostic imaging from Last 3 Months Results * BLOOD MISC TO [place] (08/14/2024 7:54 AM TICKET SORTER) Pathologist [facility] Test name, chem NEFA [place] ref Lab Misc See Footnote [facility] Comment: Test Result Flag Unit RefValue Free Fatty Acids, Total, S 0.27 mmol/L <=0.72 Test Performed by: [facility] [place] [address] Braille Coder: Shaji Fairchild Ph.D.; CLIA# [id number] Blood 08/14/2024 7:54 AM TICKET SORTER 08/14/2024 7:59 AM TICKET SORTER us Fransisco Bergman MD LAB BLOOD ORDERABLES [facility] al Result [facility] [address] [facility]. Department [place] [address] [place] ref Lab * eGFR (08/14/2024 7:54 AM TICKET SORTER) Pathologist [facility] eGFR >90 >=60 mL/min/1. 73 m2 Comment: [...] of Race in Diagnosing Kidney Disease, JASN 202). The CKD-EPI equation should not be used for patients with unstable renal function and has not been validated in children and those over 70. Current interpretive data was last reviewed 2021. Blood 08/14/2024 7:54 AM TICKET SORTER 08/14/2024 7:59 AM TICKET SORTER us Fransisco Bergman MD LAB BLOOD ORDERABLES Fin al Result [facility] RICHARD [address] [facility]. Department [place] [address] * Differential, auto (08/14/2024 7:54 AM TICKET SORTER) Neutrophil abs 3.3 1.5 - 6.5 K/cumm Imm gran abs 0.0 0.0 - 0.1 K/cumm [facility] Lymphocyte abs 1.4 0.8 - 3.3 K/cumm [facility] Monocyte abs 0.4 0.2 - 0.8 K/cumm [facility] Eosinophil abs 0.2 0.0 - 0.5 K/cumm [facility] Basophil abs 0.0 0.0 - 0.1 K/cumm [facility] Neutrophil pct 62.7 % [facility] Comment: Interpretive Data Percent cell count reference ranges are not reported, since discordance with absolute values may lead to misinterpretation of CBC data. Current Interpretive Data was last revised on 2017. Imm gran pct 0.4 % [facility] Comment: Interpretive Data Percent cell count reference ranges are not reported, since discordance with absolute values may lead to misinterpretation of CBC data. Current Interpretive Data was last revised on 2017. Lymphocyte pct 26.1 % [facility] Comment: Interpretive Data Percent cell count reference ranges are not reported, since discordance with absolute values may lead to misinterpretation of CBC data. Current Interpretive Data was last revised on 2017. Monocyte pct 6.9 % [facility] Comment: Interpretive Data Percent cell count reference ranges are not reported, since discordance with absolute values may lead to misinterpretation of CBC data. Current Interpretive Data was last revised on 2017. Eosinophil pct 3.1 % [facility] Comment: Interpretive Data Percent cell count reference ranges are not reported, since discordance with absolute values may lead to misinterpretation of CBC data. Current Interpretive Data was last revised on 2017. Basophil pct 0.8 % [facility] Comment: Interpretive Data Percent cell count reference ranges are not reported, since discordance with absolute values may lead to misinterpretation of CBC data. Current Interpretive Data was last revised on 2017. Blood 08/14/2024 7:54 AM TICKET SORTER 08/14/2024 7:59 AM TICKET SORTER Fransisco Bergman MD LAB BLOOD ORDERABLES Fin al Result [facility] [address] [facility]. Department [place] [address] * (ABNORMAL) CBC with auto differential (08/14/2024 7:54 AM TICKET SORTER) WBC 5.2 3.8 - 9.9 K/cumm Hgb 14.7 13.0 - 17.5 g/dL [facility] Hct 45.0 38.9 - 50.3 % [facility] Plt 126(L) 150 - 400 K/cumm [facility] MPV 10.1 9.1 - 12.3 fL [facility] RBC 4.69 4.30 - 5.80 M/cumm [facility] MCV 95.9 81.3 - 96.4 fL [facility] MCH 31.3 27.1 - 33.3 pg [facility] MCHC 32.7 32.3 - 35.7 g/dL [facility] RDW CV 15.8(H) 11.1 - 14.9 % [facility] RDW SD 55.9(H) 35.7 - 48.1 fL [facility] NRBC abs 0.00 0.00 - 0.01 K/cumm [facility] Blood 08/14/2024 7:54 AM TICKET SORTER 08/14/2024 7:59 AM TICKET SORTER Fransisco Bergman MD LAB BLOOD ORDERABLES Fin al Result Performing Organization Address [facility] de Phone Number [facility] [address] [employer] [address] * [id number], Tumor Marker (08/14/2024 7:54 AM TICKET SORTER) alpha Fetoprotein 4.5 <=8.3 ng/mL Comment: Interpretive [...] ng/ml >1 year 0.0 8.3 ng/ml References Justin Y. et al. J. Ped Surg 1978;13:155-156 Cristina S. et al. Clin Chem Lab Med 2018;57:783-797 Florencia Us et al. Clin Chem 2014;9728-2211. Current interpretive data was last revised 2022. Testing performed by: [facility], [address] [place] [address], [place]., [address] Blood 08/14/2024 7:54 AM TICKET SORTER 08/14/2024 11:29 AM TICKET SORTER Fransisco Bergman MD LAB BLOOD ORDERABLES Fin al Result Performing Organization Address [facility] de Phone Number [facility] [address] [employer] [place] [address] * Insulin, total (08/14/2024 7:54 AM TICKET SORTER) Insulin 11.7 2.6 - 25.0 mcIUnit/mL Comment:Testing performed by : [facility], [address] [place] [address], [place]., [address] Blood 08/14/2024 7:54 AM TICKET SORTER 08/14/2024 9:54 AM TICKET SORTER Fransisco Bergman MD LAB BLOOD ORDERABLES Fin al Result Performing Organization Address [facility] Co de Phone Number [facility] [address] [facility] [place] [address] * (ABNORMAL) Protime-INR (08/14/2024 7:54 AM TICKET SORTER) PT 14.7(H) 9.7 - 13.0 sec INR 1.35(H) 0.90 - 1.20 [facility] Comment: Interpretive data Oral anticoagulant therapeutic ranges: Venous thromboembolism prophylaxis or treatment: 2.0-3.0 CARDIOLOGY Standard range: 2.0-3.0 High-intensity range: 2.5-3.5 Refer to indication-specific guidelines for appropriate target ranges for prosthetic heart valve replacement. Current interpretive data was last revised on 2019. Blood 08/14/2024 7:54 AM TICKET SORTER 08/14/2024 7:59 AM TICKET SORTER Fransisco Bergman MD LAB BLOOD ORDERABLES Fin al Result Performing Organization Address [facility] Co de Phone Number [facility] [address] [facility] [place] [address] * Hemoglobin A1c (08/14/2024 7:54 AM TICKET SORTER) Hgb A1C 5.2 4.0 - 5.6 % Estimated Average Glucose 103 mg/dL [facility] Comment: The ADA recommends reporting an estimated Average Glucose (eAG) with all Hemoglobin A1c results using the equation derived from a study of 507 normal and diabetic adults. Minority populations were underrepresented and children were not included. (Diabetes Care 31:1914-3652, 2008). The eAG is not equivalent to a fasting glucose. Blood 08/14/2024 7:54 AM TICKET SORTER 08/14/2024 7:59 AM TICKET SORTER Fransisco Bergman MD LAB BLOOD ORDERABLES Fin al Result Performing Organization Address [facility] Co de Phone Number [facility] [address] [address] [facility]. Department [place] [employer] [address] * (ABNORMAL) Bilirubin, direct (08/14/2024 7:54 AM TICKET SORTER) Bilirubin, direct 0.4(H) 0.1 - 0.3 mg/dL Blood 08/14/2024 7:54 AM TICKET SORTER 08/14/2024 7:59 AM TICKET SORTER Fransisco Bergman MD LAB BLOOD ORDERABLES Fin al Result Performing Organization Address [facility] de Phone Number [facility] [address] Department [place] [address] * Lipid panel (08/14/2024 7:54 AM TICKET SORTER) Cholesterol 153 30 - 199 mg/dL Comment: [...] on 2018. Triglycerides 70 <=149 mg/dL [facility] Comment: Interpretive Data Ages < or = [...] 3. James Isaac et al. MALIK Cardiol. 2019October 17;5(5):540-548. doi: 10.1001/[email or web address].2020.0013 Current Interpretive Data was [...] last revised on 2018. Chol/HDL ratio 3 [facility] Blood 08/14/2024 7:54 AM TICKET SORTER 08/14/2024 7:59 AM TICKET SORTER us Fransisco Bergman MD LAB BLOOD ORDERABLES Fin al Result [facility] [address] [facility]. [place] [address] * (ABNORMAL) Comprehensive metabolic panel (08/14/2024 7:54 AM TICKET SORTER) Sodium 140 135 - 145 mmol/L Potassium, [...] Units/L [facility] Blood 08/14/2024 7:54 AM TICKET SORTER 08/14/2024 7:59 AM TICKET SORTER us Fransisco Bergman MD LAB BLOOD ORDERABLES Fin al Result [facility] ALEJANDRO [address] [facility]. Department [place] [address] * MRI Abdomen Liver W WO Contrast (08/14/2024 7:35 AM TICKET SORTER) Anatomical Region Laterality Modality Body N/A Magnetic Resonan ce 08/14/2024 1:09 PM TICKET SORTER Impressions 08/14/2024 1:12 PM TICKET SORTER 1. A subcentimeter LR2 lesion in hepatic [...] Vera James M.D. Narrative 08/14/2024 1:12 PM TICKET SORTER EXAMINATION: MAGNETIC RESONANCE IMAGING OF THE ABDOMEN [...] by: Vera James M.D. Fransisco Bergman MD IMG MRI PROCEDURES Final Result from Last 3 Months Insurance AVST ACCESS CHOICE AVST ACCESS CHOICE Advance Directives For more information, please contact: [phone] * Full Code (Latest Code Status on File) Date Activated Date Inactivated Comments 07/28/2023 4:46 PM 07/29/2023 12:06 AM Care Teams Assistant Manager Pt Relationship Specialty Start Date End Date No, Physician PCP - General 05/02/24
--- OUTSIDE RECORDS SUMMARY | 2024-11-07 09:46 | XMS_ITS | Encounter Summary ---
Author Organization [facility] Address [address] [place] [address] Phone Care Team Providers Care Social Work Msw Name Role Phone Marta Fox MD Primary Care Provider + No, Physician Primary Care Provider [phone] Encounter Details Date Type Department Care Team (Late st Contact Info) Description 06/27/2023 Orders Only [facility] Scanning, Provider Social History Tobacco Use Types Packs/Day Years Used Date Smoking Tobacco: Never Smokeless Tobacco: Never Alcohol Use Standard Drinks/Week Comments Yes 1 (1 standard drink = 0.6 oz pur e alcohol) Personal Safety Answer Date Recorded Getting School Help Needed Not on file 05/31 Sex and Gender Information Value Date Recorded Sex Assigned at Not on file Legal 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 Gender Identity Not on file Sexual Orientation Not on file documented as of this encounter Plan of Treatment Not on file documented as of this encounter Procedures Procedure Name Priority Date/Time Associated Diagnosis Comments GI - RESULT 06/27/2023 documented in this encounter Results * GI - RESULT (06/27/2023) Anatomical Region Laterality Modality Other us Provider Scanning Final Result documented in this encounter Visit Diagnoses Not on filedocumented in this encounter Care Teams Social Work Msw Relationship Specialty Start Date End Date Marta Fox MD [address] [place] [address] [place] [address] PCP - General Family Medicine 06/04/20 05/01/24 No, Physician PCP - General 05/02/24 documented as of this encounter
--- OUTSIDE RECORDS SUMMARY | 2024-11-07 09:46 | XMS_ITS | Encounter Summary ---
Author Organization [facility] Address [address] [place] [address] Phone Care Team Providers Care Wire Frame Dipper Name Role Phone Marta Fox MD Primary Care Provider + No, Physician Primary Care Provider [phone] Encounter Details Date Type Department Care Team (Late st Contact Info) Description 06/05/2023 Orders Only [facility] Scanning, Provider [...] on file Legal Sex Male 8:01 AM SACK SORTER Gender Identity Not on file Sexual Orientation Not on file documented as of this encounter Plan of Treatment Not on file documented as of this encounter Procedures Procedure Name Priority Date/Time Associated Diagnosis Comments SCAN - RADIOLOGY/IMAGING 06/05/2023 documented in this encounter Results * SCAN - RADIOLOGY/IMAGING (06/05/2023) Anatomical Region Laterality Modality Other us Provider Scanning Final Result documented in this encounter Visit Diagnoses Not on filedocumented in this encounter Care Teams Wire Frame Dipper Relationship Specialty Start Date End Date Marta Fox MD [address] [place] [address] [place] [address] PCP - General Family Medicine 06/04/20 05/01/24 No, Physician PCP - General 05/02/24 documented as of this encounter
[2024-11-07 09:54] VITALS: BP 155/83; PULSE 74; RESP 16; TEMP 36.6; O2SAT 98
[2024-11-07 12:06] VITALS: BP 126/82; PULSE 79; RESP 15; O2SAT 95
[2024-11-07 12:22] LABS: Add Urine Microscopic? YES; Appearance Urine Clear (Clear); Bacteria Urine None Seen /hpf; Bilirubin Urine Negative (Negative); Blood Urine Negative (Negative); Color Urine Dark Yellow (Yellow); Glucose Urine UA Negative (Negative); Ketones Urine Trace mg/dL (Negative); Leukocyte Esterase Ur Trace LEU/UL (Negative); Nitrate Urine Negative (Negative); Non Pathogenic Casts 0-2; Protein Urine Negative (Negative); RBC Urine 0-2 /hpf (0-2); Specific Grav Ur 1.022 (1.001-1.035); Squamous Epithelial Cell Urine None Seen /hpf (Few); WBC Urine 0-5 /hpf (0-3); pH Urine 6.5 (5.0-9.0)
[2024-11-07 12:23] LABS: Basophils Percent Auto 0.6 % (0.2-1.2); Eosinophils Absolute Auto 0.1 K/mm3 (0-0.3); Eosinophils Percent Auto 2.4 % (0-4.4); Hematocrit 45.4 % (42.0-52.0); Hemoglobin 14.6 g/dL (14.0-18.0); Immature Granulocyte Absolute 0.01 K/mm3 (0.00-0.031); Immature Granulocyte Percent A 0.2 % (0-0.5); Immature Platelet Fraction Pct 2.8 % (0.9-11.2); Lymphocytes Absolute Auto 0.97 K/mm3 (0.9-3.2); Lymphocytes Percent Auto 17.8 % (18.3-44.2); Mean Corpuscular HGB Conc 32.2 g/dl (32-36); Mean Corpuscular Volume 96.4 fl (80-100); Mean Platelet Volume 10.7 fl (7.4-10.4); Monocytes Absolute Auto 0.3 K/mm3 (0.1-0.6); Monocytes Percent Auto 5.9 % (2.6-8.5); Neutrophils Percent Auto 73.1 % (45.5-73.1); Platelet Count Result 116 k/mm3 (150-375); Red Blood Count 4.71 M/mm3 (4.6-6.20); Red Cell Distribution Width 14.6 % (11.5-14.5); White Blood Count 5.5 K/mm3 (4.5-10.0)
--- OUTSIDE RECORDS SUMMARY | 2024-11-07 12:24 | XMS_ITS | Encounter Summary ---
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
--- OUTSIDE RECORDS SUMMARY | 2024-11-07 12:24 | XMS_ITS | Encounter Summary ---
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
--- OUTSIDE RECORDS SUMMARY | 2024-11-07 12:24 | XMS_ITS | Encounter Summary ---
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
--- OUTSIDE RECORDS SUMMARY | 2024-11-07 12:24 | XMS_ITS | Clinical Summary ---
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 Status post coronary artery stent placement 05/19 Essential hypertension 07/06/2020 Mixed hyperlipidemia 07/06/2020 Resolved Problems Problem Noted Date Diagnosed Date Resolved Date Unstable angina pectoris 07/13/202302/2024 CABALLERO (dyspnea on exertion) 07/06/2020 BMI 34.0-34.9,adult 07/06/2020 10/26/19 24 Encounters Date Type Department Care Team Description 08/19/2024 Results Follow-Up [facility] Gastroenterology [address] [place] [address] Fransisco Bergman MD Lipid panel, Insulin, total, [id number], Tumor Marker, Additional followed-up results: 8 08/14/2024 7:45 AM DIRECTOR DATA PROCESSING Lab [facility] [address] [place] [address] Hepatic cirrhosis, unspecified hepatic cirrhosis type, unspecified whether ascites present (HCC); Insulin resistance 08/14/2024 6:42 AM DIRECTOR DATA PROCESSING - 08/14/2024 11:59 PM DIRECTOR DATA PROCESSING Hospital Encounter [facility] Imaging [address] [address] Hepatic cirrhosis, unspecified hepatic cirrhosis type, unspecified whether ascites present (HCC); Abnormal liver diagnostic imaging Discharge Disposition: Discharge to home or self care 08/14/2024 Results Follow-Up [facility] Gastroenterology [address] [place] [address] [place] [address] Fransisco Bergman MD MRI Abdomen Liver W [...] on file Legal Sex Male 8:01 AM DIRECTOR DATA PROCESSING Gender Identity Not on file Sexual Orientation Not on file Obstetrics History Last Filed Vital Signs Vital Sign Reading Time Taken Comments Blood Pressure 144/86 06/21/2024 9:32 AM DIRECTOR DATA PROCESSING Pulse 82 06/21/2024 9:32 AM DIRECTOR DATA PROCESSING Temperature 36.6 C (97.8 F) 07/28/2023 12:49 PM DIRECTOR DATA PROCESSING Respiratory Rate 17 07/28/2023 7:12 PM DIRECTOR DATA PROCESSING Oxygen Saturation 96% 06/21/2024 9:32 AM DIRECTOR DATA PROCESSING Inhaled Oxygen Concentration - - Weight 102.1 kg (225 lb) 06/21/2024 9:32 AM DIRECTOR DATA PROCESSING Height 175.3 cm (5' 9 ) 06/21/2024 9:32 AM DIRECTOR DATA PROCESSING Body Mass Index 33.23 06/21/2024 9:32 AM DIRECTOR DATA PROCESSING Plan of Treatment Health Maintenance Due Date [...] 01/06/2030, 06/19/2013 Medical Devices Implanted Type Area Hogshead Cooper Device Identifier Shelf Expiration Date Model / Serial / Lot [employer] Jocye Stent Coronary Drug Eluting Rapid Exchange Synergy Xd [id number] Deep Run Chromium [id number] - S0 - [id number] Implanted:Qty : 1 on 07/28/2023 by Gianluca Licona MD at [facility] Stent Left: Circumflex Coronary Artery [employer] Joyce 03/05/2025 [id number] / 0 / [id number] [employer] Joyce Synergy Xd Monorail 2.5mm 28mm 144cm Delivery System 1 Access [id number] - S0 - [id number] Implanted:Qty : 1 on 07/28/2023 by Gianluca Licona MD at [facility] Stent Left: Circumflex Coronary Artery [employer] Joyce 01/27/2024 [id number] / 0 / [id number] Bob Vascular Device Clsr Perclose Prostyle Sut-Mediatd Closure-Repai r Sys [id number] - S0 - [id number] Implanted:Qty : 1 on 07/28/2023 by Gianluca Licona MD at [facility] Vascular Closure Device Right: Femoral [employer] 04/18/2025 [id number] / 0 / [id number] Procedures Procedure Name Priority Date/Time Associated Diagnosis Comments EGFR Routine 08/14/2024 7:54 AM DIRECTOR DATA PROCESSING Hepatic cirrhosis, unspecified hepatic cirrhosis type, unspecified whether ascites present (HCC) Insulin resistance DIFFERENTIAL AUTO Routine 08/14/2024 7:5 4 AM DIRECTOR DATA PROCESSING Hepatic cirrhosis, unspecified hepatic cirrhosis type, unspecified whether ascites present (HCC) Insulin resistance BLOOD MISC TO WAVERLY Routine 08/14/2024 7: 54 AM DIRECTOR DATA PROCESSING PROTIME-INR Routine 08/14/2024 7:54 AM DIRECTOR DATA PROCESSING Hepatic cirrhosis, unspecified hepatic cirrhosis type, unspecified whether ascites present (HCC) Insulin resistance CBC WITH AUTO DIFFERENTIAL Routine 08/14/2024 7:54 AM DIRECTOR DATA PROCESSING Hepatic cirrhosis, unspecified hepatic cirrhosis type, unspecified whether ascites present (HCC) Insulin resistance BILIRUBIN, DIRECT Routine 08/14/2024 7:5 4 AM DIRECTOR DATA PROCESSING Hepatic cirrhosis, unspecified hepatic cirrhosis type, unspecified whether ascites present (HCC) Insulin resistance COMPREHENSIVE METABOLIC PANEL Routine 08/14/2024 7:54 AM DIRECTOR DATA PROCESSING Hepatic cirrhosis, unspecified hepatic cirrhosis type, unspecified whether ascites present (HCC) Insulin resistance HEMOGLOBIN A1C Routine 08/14/2024 7:54 AM DIRECTOR DATA PROCESSING Hepatic cirrhosis, unspecified hepatic cirrhosis type, unspecified whether ascites present (HCC) Insulin resistance [id number], TUMOR MARKER Routine 08/14/2024 7:54 AM DIRECTOR DATA PROCESSING Hepatic cirrhosis, unspecified hepatic cirrhosis type, unspecified whether ascites present (HCC) Insulin resistance INSULIN, TOTAL Routine 08/14/2024 7:54 AM DIRECTOR DATA PROCESSING Hepatic cirrhosis, unspecified hepatic cirrhosis type, unspecified whether ascites present (HCC) Insulin resistance LIPID PANEL Routine 08/14/2024 7:54 AM DIRECTOR DATA PROCESSING Hepatic cirrhosis, unspecified hepatic cirrhosis type, unspecified whether ascites present (HCC) Insulin resistance MRI ABDOMEN LIVER W WO CONTRAST Schedule Routine, Read Routine (OP Routine) 08/14/2024 7:35 AM DIRECTOR DATA PROCESSING Hepatic cirrhosis, unspecified hepatic cirrhosis type, unspecified whether ascites present (HCC) Abnormal liver diagnostic imaging from Last 3 Months Results * BLOOD MISC TO WAVERLY (08/14/2024 7:54 AM DIRECTOR DATA PROCESSING) Pathologist [facility] Test name, chem NEFA [place] ref Lab Misc See Footnote [facility] Comment: Test Result Flag Unit RefValue Free Fatty Acids, Total, S 0.27 mmol/L <=0.72 Test Performed by: [facility] [place] [address] Classroom Paraprofessional: Shaji Fairchild Ph.D.; CLIA# [id number] Blood 08/14/2024 7:54 AM DIRECTOR DATA PROCESSING 08/14/2024 7:59 AM DIRECTOR DATA PROCESSING us Fransisco Bergman MD LAB BLOOD ORDERABLES [facility] al Result [facility] [address] [facility]. [place] [address] [place] ref Lab * eGFR (08/14/2024 7:54 AM DIRECTOR DATA PROCESSING) Pathologist [facility] eGFR >90 >=60 mL/min/1. 73 m2 Comment: [...] last reviewed 2021. Blood 08/14/2024 7:54 AM DIRECTOR DATA PROCESSING 08/14/2024 7:59 AM DIRECTOR DATA PROCESSING us Fransisco Bergman MD LAB BLOOD ORDERABLES Fin al Result [facility] RICHARD [address] [facility]. [place] [address] * Differential, auto (08/14/2024 7:54 AM DIRECTOR DATA PROCESSING) Neutrophil abs 3.3 1.5 - 6.5 K/cumm Imm gran abs 0.0 0.0 - 0.1 K/cumm [facility] Lymphocyte abs 1.4 0.8 - 3.3 K/cumm [facility] Monocyte abs 0.4 0.2 - 0.8 K/cumm [facility] Eosinophil abs 0.2 0.0 - 0.5 K/cumm [facility] Basophil abs 0.0 0.0 - 0.1 K/cumm [facility] Neutrophil pct 62.7 % [facility] Comment: Interpretive Data Percent cell count reference ranges are not reported, since discordance with absolute values may lead to misinterpretation of CBC data. Current Interpretive Data was last revised on 2017. Imm gran pct 0.4 % [facility] Comment: Interpretive Data Percent cell count reference ranges are not reported, since discordance with absolute values may lead to misinterpretation of CBC data. Current Interpretive Data was last revised on 2017. Lymphocyte pct 26.1 % [facility] Comment: Interpretive Data Percent cell count reference ranges are not reported, since discordance with absolute values may lead to misinterpretation of CBC data. Current Interpretive Data was last revised on 2017. Monocyte pct 6.9 % [facility] Comment: Interpretive Data Percent cell count reference ranges are not reported, since discordance with absolute values may lead to misinterpretation of CBC data. Current Interpretive Data was last revised on 2017. Eosinophil pct 3.1 % [facility] Comment: Interpretive Data Percent cell count reference ranges are not reported, since discordance with absolute values may lead to misinterpretation of CBC data. Current Interpretive Data was last revised on 2017. Basophil pct 0.8 % [facility] Comment: Interpretive Data Percent cell count reference ranges are not reported, since discordance with absolute values may lead to misinterpretation of CBC data. Current Interpretive Data was last revised on 2017. Blood 08/14/2024 7:54 AM DIRECTOR DATA PROCESSING 08/14/2024 7:59 AM DIRECTOR DATA PROCESSING Fransisco Bergman MD LAB BLOOD ORDERABLES Fin al Result [facility] [address] [facility]. [place] [employer] [place] [address] * (ABNORMAL) CBC with auto differential (08/14/2024 7:54 AM DIRECTOR DATA PROCESSING) WBC 5.2 3.8 - 9.9 K/cumm Hgb 14.7 13.0 - 17.5 g/dL [facility] Hct 45.0 38.9 - 50.3 % [facility] Plt 126(L) 150 - 400 K/cumm [facility] MPV 10.1 9.1 - 12.3 fL [facility] RBC 4.69 4.30 - 5.80 M/cumm [facility] MCV 95.9 81.3 - 96.4 fL [facility] MCH 31.3 27.1 - 33.3 pg [facility] MCHC 32.7 32.3 - 35.7 g/dL [facility] RDW CV 15.8(H) 11.1 - 14.9 % [facility] RDW SD 55.9(H) 35.7 - 48.1 fL [facility] NRBC abs 0.00 0.00 - 0.01 K/cumm [facility] Blood 08/14/2024 7:54 AM DIRECTOR DATA PROCESSING 08/14/2024 7:59 AM DIRECTOR DATA PROCESSING Fransisco Bergman MD LAB BLOOD ORDERABLES Fin al Result Performing Organization Address [facility] de Phone Number [facility] [address] [place] [address] * [id number], Tumor Marker (08/14/2024 7:54 AM DIRECTOR DATA PROCESSING) alpha Fetoprotein 4.5 <=8.3 ng/mL Comment: Interpretive [...] 2018;[id number]:[id number] Florencia Us et al. Clin Chem 2014;9888-1315. Current interpretive data was last revised 2022. Testing performed by: [facility], [address] [place] [address], [place]., [address] Blood 08/14/2024 7:54 AM DIRECTOR DATA PROCESSING 08/14/2024 11:29 AM DIRECTOR DATA PROCESSING Fransisco Bergman MD LAB BLOOD ORDERABLES Fin al Result Performing Organization Address [facility] de Phone Number [facility] [address] [employer] [place] [address] * Insulin, total (08/14/2024 7:54 AM DIRECTOR DATA PROCESSING) Insulin 11.7 2.6 - 25.0 mcIUnit/mL Comment:Testing performed by : [facility], [address] [place] [address], [place]., [address] Blood 08/14/2024 7:54 AM DIRECTOR DATA PROCESSING 08/14/2024 9:54 AM DIRECTOR DATA PROCESSING Fransisco Bergman MD LAB BLOOD ORDERABLES Fin al Result Performing Organization Address [facility] Co de Phone Number [facility] [address] [facility] [place] [place] [address] * (ABNORMAL) Protime-INR (08/14/2024 7:54 AM DIRECTOR DATA PROCESSING) PT 14.7(H) 9.7 - 13.0 sec INR 1.35(H) 0.90 - 1.20 [facility] Comment: Interpretive data Oral anticoagulant therapeutic ranges: Venous thromboembolism prophylaxis or treatment: 2.0-3.0 CARDIOLOGY Standard range: 2.0-3.0 High-intensity range: 2.5-3.5 Refer to indication-specific guidelines for appropriate target ranges for prosthetic heart valve replacement. Current interpretive data was last revised on 2019. Blood 08/14/2024 7:54 AM DIRECTOR DATA PROCESSING 08/14/2024 7:59 AM DIRECTOR DATA PROCESSING Fransisco Bergman MD LAB BLOOD ORDERABLES Fin al Result Performing Organization Address [facility] Co de Phone Number [facility] [address] [facility] [place] [place] [address] * Hemoglobin A1c (08/14/2024 7:54 AM DIRECTOR DATA PROCESSING) Hgb A1C 5.2 4.0 - 5.6 % Estimated Average Glucose 103 mg/dL [facility] Comment: The ADA recommends reporting an estimated Average Glucose (eAG) with all Hemoglobin A1c results using the equation derived from a study of 507 normal and diabetic adults. Minority populations were underrepresented and children were not included. (Diabetes Care 31:0882-5885, 2008). The eAG is not equivalent to a fasting glucose. Blood 08/14/2024 7:54 AM DIRECTOR DATA PROCESSING 08/14/2024 7:59 AM DIRECTOR DATA PROCESSING Fransisco Bergman MD LAB BLOOD ORDERABLES Fin al Result Performing Organization Address City/[facility] Co de Phone Number [facility] [address] [address] [facility]. [place] [employer] [place] [address] * (ABNORMAL) Bilirubin, direct (08/14/2024 7:54 AM DIRECTOR DATA PROCESSING) Bilirubin, direct 0.4(H) 0.1 - 0.3 mg/dL Blood 08/14/2024 7:54 AM DIRECTOR DATA PROCESSING 08/14/2024 7:59 AM DIRECTOR DATA PROCESSING Fransisco Bergman MD LAB BLOOD ORDERABLES Fin al Result Performing Organization Address [facility] de Phone Number [facility] [address] [place] [address] * Lipid panel (08/14/2024 7:54 AM DIRECTOR DATA PROCESSING) Cholesterol 153 30 - 199 mg/dL Comment: [...] 3 [facility] Blood 08/14/2024 7:54 AM DIRECTOR DATA PROCESSING 08/14/2024 7:59 AM DIRECTOR DATA PROCESSING us Fransisco Bergman MD LAB BLOOD ORDERABLES Fin al Result [facility] [address] [facility]. [place] [address] * (ABNORMAL) Comprehensive metabolic panel (08/14/2024 7:54 AM DIRECTOR DATA PROCESSING) Sodium 140 135 - 145 mmol/L Potassium, [...] Units/L [facility] Blood 08/14/2024 7:54 AM DIRECTOR DATA PROCESSING 08/14/2024 7:59 AM DIRECTOR DATA PROCESSING us Fransisco Bergman MD LAB BLOOD ORDERABLES Fin al Result [facility] ALEJANDRO [address] [facility]. [place] [address] * MRI Abdomen Liver W WO Contrast (08/14/2024 7:35 AM DIRECTOR DATA PROCESSING) Anatomical Region Laterality Modality Body N/A Magnetic Resonan ce 08/14/2024 1:09 PM DIRECTOR DATA PROCESSING Impressions 08/14/2024 1:12 PM DIRECTOR DATA PROCESSING 1. A subcentimeter LR2 lesion in hepatic [...] Vera James M.D. Narrative 08/14/2024 1:12 PM DIRECTOR DATA PROCESSING EXAMINATION: MAGNETIC RESONANCE IMAGING OF THE ABDOMEN [...] Final Result from Last 3 Months Insurance [employer] ACCESS CHOICE [employer] ACCESS CHOICE Advance Directives For more information, please contact: [phone] * Full Code (Latest Code Status on File) Date Activated Date Inactivated Comments 07/28/2023 4:46 PM 07/29/2023 12:06 AM Care Teams Washtub Worker Relationship Specialty Start Date End Date No, Physician PCP - General 05/02/24
--- OUTSIDE RECORDS SUMMARY | 2024-11-07 12:25 | XMS_ITS | Referral Summary ---
Author Organization [facility] [place] [facility] [place] [address] Address [address] [place] [address] Care Team Providers Care Prawn Trawler Hand Name Role Phone No, Physician Primary Care Provider Encounters Date Type Department Care Team Description 08/19/2024 Results Follow-Up [facility] Gastroenterology [address] [place] [address] Fransisco Bergman MD Lipid panel, Insulin, total, [id number], Tumor Marker, Additional followed-up results: 8 08/14/2024 Results Follow-Up [facility] Gastroenterology [address] 12th [place] [address] [place] [address] Fransisco Bergman MD MRI Abdomen Liver W WO Contrast 08/14/2024 7:45 AM WOOL HAT HYDRAULICKER Lab [facility] [address] [address] Hepatic cirrhosis, unspecified hepatic cirrhosis type, unspecified whether ascites present (HCC); Insulin resistance 08/14/2024 6:42 AM WOOL HAT HYDRAULICKER - 08/14/2024 11:59 PM WOOL HAT HYDRAULICKER Hospital Encounter [facility] Imaging [address] [address] Hepatic cirrhosis, unspecified hepatic cirrhosis type, unspecified [...] artery disease of n ative artery of [place] heart with stable angina pectoris 05/30/2022 Status [...] on file Legal Sex Male 8:01 AM WOOL HAT HYDRAULICKER Gender Identity Not on file Sexual Orientation Not on file Last Filed Vital Signs Vital Sign Reading Time Taken Comments Blood Pressure 144/86 06/21/2024 9:32 AM WOOL HAT HYDRAULICKER Pulse 82 06/21/2024 9:32 AM WOOL HAT HYDRAULICKER Temperature 36.6 C (97.8 F) 07/28/2023 12:49 PM WOOL HAT HYDRAULICKER Respiratory Rate 17 07/28/2023 7:12 PM WOOL HAT HYDRAULICKER Oxygen Saturation 96% 06/21/2024 9:32 AM WOOL HAT HYDRAULICKER Inhaled Oxygen Concentration - - Weight 102.1 kg (225 lb) 06/21/2024 9:32 AM WOOL HAT HYDRAULICKER Height 175.3 cm (5' 9 ) 06/21/2024 9:32 AM WOOL HAT HYDRAULICKER Body Mass Index 33.23 06/21/2024 9:32 AM WOOL HAT HYDRAULICKER Plan of Treatment Not on file Medical Devices Implanted Type Area Laundry Tech Device Identifier Shelf Expiration Date Model / Serial / Lot [employer] Joyce Stent Coronary Drug Eluting Rapid Exchange Synergy Xd 3.30g92df [place] Chromium [id number] - S0 - [id number] Implanted:Qty : 1 on 07/28/2023 by Gianluca Licona MD at [facility] Stent Left: Circumflex Coronary Artery [employer] Joyce 03/05/2025 [id number] / 0 / [id number] [employer] Joyce Synergy Xd Monorail 2.5mm 28mm 144cm Delivery System 1 Access [id number] - S0 - [id number] Implanted:Qty : 1 on 07/28/2023 by Gianluca Licona MD at [facility] Stent Left: Circumflex Coronary Artery [employer] Joyce 01/27/2024 [id number] / 0 / [id number] Bob Vascular Device Clsr Perclose Prostyle Sut-Mediatd Closure-Repai r Sys [id number] - S0 - [id number] Implanted:Qty : 1 on 07/28/2023 by Gianluca Licona MD at [facility] Vascular Closure Device Right: Femoral Bob Vascular 04/18/2025 [id number] / 0 / [id number] Procedures Procedure Name Priority Date/Time Associated Diagnosis Comments EGFR Routine 08/14/2024 7:54 AM WOOL HAT HYDRAULICKER Hepatic cirrhosis, unspecified hepatic cirrhosis type, unspecified whether ascites present (HCC) Insulin resistance DIFFERENTIAL AUTO Routine 08/14/2024 7:5 4 AM WOOL HAT HYDRAULICKER Hepatic cirrhosis, unspecified hepatic cirrhosis type, unspecified whether ascites present (HCC) Insulin resistance BLOOD MISC TO SAVANNAH Routine 08/14/2024 7: 54 AM WOOL HAT HYDRAULICKER PROTIME-INR Routine 08/14/2024 7:54 AM WOOL HAT HYDRAULICKER Hepatic cirrhosis, unspecified hepatic cirrhosis type, unspecified whether ascites present (HCC) Insulin resistance CBC WITH AUTO DIFFERENTIAL Routine 08/14/2024 7:54 AM WOOL HAT HYDRAULICKER Hepatic cirrhosis, unspecified hepatic cirrhosis type, unspecified whether ascites present (HCC) Insulin resistance BILIRUBIN, DIRECT Routine 08/14/2024 7:5 4 AM WOOL HAT HYDRAULICKER Hepatic cirrhosis, unspecified hepatic cirrhosis type, unspecified whether ascites present (HCC) Insulin resistance COMPREHENSIVE METABOLIC PANEL Routine 08/14/2024 7:54 AM WOOL HAT HYDRAULICKER Hepatic cirrhosis, unspecified hepatic cirrhosis type, unspecified whether ascites present (HCC) Insulin resistance HEMOGLOBIN A1C Routine 08/14/2024 7:54 AM WOOL HAT HYDRAULICKER Hepatic cirrhosis, unspecified hepatic cirrhosis type, unspecified whether ascites present (HCC) Insulin resistance [id number], TUMOR MARKER Routine 08/14/2024 7:54 AM WOOL HAT HYDRAULICKER Hepatic cirrhosis, unspecified hepatic cirrhosis type, unspecified whether ascites present (HCC) Insulin resistance INSULIN, TOTAL Routine 08/14/2024 7:54 AM WOOL HAT HYDRAULICKER Hepatic cirrhosis, unspecified hepatic cirrhosis type, unspecified whether ascites present (HCC) Insulin resistance LIPID PANEL Routine 08/14/2024 7:54 AM WOOL HAT HYDRAULICKER Hepatic cirrhosis, unspecified hepatic cirrhosis type, unspecified whether ascites present (HCC) Insulin resistance MRI ABDOMEN LIVER W WO CONTRAST Schedule Routine, Read Routine (OP Routine) 08/14/2024 7:35 AM WOOL HAT HYDRAULICKER Hepatic cirrhosis, unspecified hepatic cirrhosis type, unspecified whether ascites present (HCC) Abnormal liver diagnostic imaging from Last 3 Months Results * BLOOD MISC TO SAVANNAH (08/14/2024 7:54 AM WOOL HAT HYDRAULICKER) Test name, chem NEFA [place] ref Lab Misc See Footnote MAKI PEREZWCH Comment: Test Result Flag Unit RefValue Free Fatty Acids, Total, S 0.27 mmol/L <=0.72 Test Performed by: [place] [address] Fan Blade Aligner: Shaji Fairchild Ph.D.; CLIA# [id number] Blood 08/14/2024 7:54 AM WOOL HAT HYDRAULICKER 08/14/2024 7:59 AM WOOL HAT HYDRAULICKER Fransisco Bergman MD LAB BLOOD ORDERABLES Fin al Result Performing Organization Address City/State/[facility] Co de Phone Number MAKI BJWCH [address] [facility]. Department [place] [address] [facility] ref Lab * eGFR (08/14/2024 7:54 AM WOOL HAT HYDRAULICKER) eGFR >90 >=60 mL/min/1. 73 m2 Comment: [...] last reviewed 2021. Blood 08/14/2024 7:54 AM WOOL HAT HYDRAULICKER 08/14/2024 7:59 AM WOOL HAT HYDRAULICKER us Fransisco Bergman MD LAB BLOOD ORDERABLES Fin al Result Performing Organization Address [facility] Co de Phone Number MAKI PEREZWCH [address]. Department [place] [address] * Differential, auto (08/14/2024 7:54 AM WOOL HAT HYDRAULICKER) Neutrophil abs 3.3 1.5 - 6.5 K/cumm Imm gran abs 0.0 0.0 - 0.1 K/cumm [facility] Lymphocyte abs 1.4 0.8 - 3.3 K/cumm [facility] Monocyte abs 0.4 0.2 - 0.8 K/cumm [facility] Eosinophil abs 0.2 0.0 - [...] on 2017. Basophil pct 0.8 % [facility] Comment: Interpretive Data Percent cell count reference ranges are not reported, since discordance with absolute values may lead to misinterpretation of CBC data. Current Interpretive Data was last revised on 2017. Blood 08/14/2024 7:54 AM WOOL HAT HYDRAULICKER 08/14/2024 7:59 AM WOOL HAT HYDRAULICKER us Fransisco Bergman MD LAB BLOOD ORDERABLES Fin al Result MAKI PEREZWCH [address] [facility]. Department [place] [address] * (ABNORMAL) CBC with auto differential (08/14/2024 7:54 AM WOOL HAT HYDRAULICKER) WBC 5.2 3.8 - 9.9 K/cumm Hgb [...] abs 0.00 0.00 - 0.01 K/cumm [facility] Blood 08/14/2024 7:54 AM WOOL HAT HYDRAULICKER 08/14/2024 7:59 AM WOOL HAT HYDRAULICKER us Fransisco Bergman MD LAB BLOOD ORDERABLES Fin al Result MAKI ALEJANDRO [address] [facility]. Department [place] [address] * [id number], Tumor Marker (08/14/2024 7:54 AM WOOL HAT HYDRAULICKER) alpha Fetoprotein 4.5 <=8.3 ng/mL Comment: Interpretive [...] 2018;[id number]:[id number] Florencia Us et al. Clin Chem 2014;5287-5852. Current interpretive data was last revised 2022. Testing performed by: [facility], [facility], [place]., [address] Blood 08/14/2024 7:54 AM WOOL HAT HYDRAULICKER 08/14/2024 11:29 AM WOOL HAT HYDRAULICKER Fransisco Bergman MD LAB BLOOD ORDERABLES Fin al Result Performing Organization Address City/[facility] Co de Phone Number [facility] [address] [facility]. [facility] [place] [address] * Insulin, total (08/14/2024 7:54 AM WOOL HAT HYDRAULICKER) Insulin 11.7 2.6 - 25.0 mcIUnit/mL Comment:Testing performed by : [facility], [address] [place] [address]., [id number] Blood 08/14/2024 7:54 AM WOOL HAT HYDRAULICKER 08/14/2024 9:54 AM WOOL HAT HYDRAULICKER Fransisco Bergman MD LAB BLOOD ORDERABLES Fin al Result Performing Organization Address City/[facility] Co de Phone Number [facility] [address] [facility]. [facility] [place] [address] * (ABNORMAL) Protime-INR (08/14/2024 7:54 AM WOOL HAT HYDRAULICKER) PT 14.7(H) 9.7 - 13.0 sec INR 1.35(H) 0.90 - 1.20 MAKI PEREZWCH Comment: Interpretive data Oral anticoagulant therapeutic ranges: Venous thromboembolism prophylaxis or treatment: 2.0-3.0 CARDIOLOGY Standard range: 2.0-3.0 High-intensity range: 2.5-3.5 Refer to indication-specific guidelines for appropriate target ranges for prosthetic heart valve replacement. Current interpretive data was last revised on 2019. Blood 08/14/2024 7:54 AM WOOL HAT HYDRAULICKER 08/14/2024 7:59 AM WOOL HAT HYDRAULICKER Fransisco Bergman MD LAB BLOOD ORDERABLES Fin al Result Performing Organization Address [facility] de Phone Number MAKI PEREZCH [address] [facility]. [facility] [place] [address] * Hemoglobin A1c (08/14/2024 7:54 AM WOOL HAT HYDRAULICKER) Hgb A1C 5.2 4.0 - 5.6 % Estimated Average Glucose 103 mg/dL MAKI RICHARDCH Comment: The ADA recommends reporting an estimated Average Glucose (eAG) with all Hemoglobin A1c results using the equation derived from a study of 507 normal and diabetic adults. Minority populations were underrepresented and children were not included. (Diabetes Care 31:5255-3794, 2008). The eAG is not equivalent to a fasting glucose. Blood 08/14/2024 7:54 AM WOOL HAT HYDRAULICKER 08/14/2024 7:59 AM WOOL HAT HYDRAULICKER Fransisco Bergman MD LAB BLOOD ORDERABLES Fin al Result Performing Organization Address [facility] de Phone Number MAKI PEREZCH [address] [facility]. [facility] [place] [address] * (ABNORMAL) Bilirubin, direct (08/14/2024 7:54 AM WOOL HAT HYDRAULICKER) Pathologist [facility] [place] Bilirubin, direct 0.4(H) 0.1 - 0.3 mg/dL Blood 08/14/2024 7:54 AM WOOL HAT HYDRAULICKER 08/14/2024 7:59 AM WOOL HAT HYDRAULICKER Fransisco Bergman MD LAB BLOOD ORDERABLES Fin al Result Performing Organization Address [facility] de Phone Number MAKI BJWCH [address] [facility] [place] [address] * Lipid panel (08/14/2024 7:54 AM WOOL HAT HYDRAULICKER) Cholesterol 153 30 - 199 mg/dL Comment: [...] 3 CERSUSHILA ALEJANDRO Blood 08/14/2024 7:54 AM WOOL HAT HYDRAULICKER 08/14/2024 7:59 AM WOOL HAT HYDRAULICKER us Fransisco Bergman MD LAB BLOOD ORDERABLES Fin al Result MAKI PEREZWCH [address] [facility]. Department [place] [address] * (ABNORMAL) Comprehensive metabolic panel (08/14/2024 7:54 AM WOOL HAT HYDRAULICKER) Sodium 140 135 - 145 mmol/L Potassium, [...] Units/L [facility]ERNER BJWCH Blood 08/14/2024 7:54 AM WOOL HAT HYDRAULICKER 08/14/2024 7:59 AM WOOL HAT HYDRAULICKER us Fransisco Bergman MD LAB BLOOD ORDERABLES Fin al Result [facility] [address] [facility]. Department [place] [address] * MRI Abdomen Liver W WO Contrast (08/14/2024 7:35 AM WOOL HAT HYDRAULICKER) Anatomical Region Laterality Modality Body N/A Magnetic Resonan ce 08/14/2024 1:09 PM WOOL HAT HYDRAULICKER Impressions 08/14/2024 1:12 PM WOOL HAT HYDRAULICKER 1. A subcentimeter LR2 lesion in hepatic [...] Vera James M.D. Narrative 08/14/2024 1:12 PM WOOL HAT HYDRAULICKER EXAMINATION: MAGNETIC RESONANCE IMAGING OF THE ABDOMEN [...] by: Vera James M.D. Fransisco Bergman MD [facility] MRI PROCEDURES Final Result from Last 3 Months Insurance [facility] ACCESS CHOICE ANTHEM ACCESS CHOICE Advance Directives For more information, please contact: [phone] * Full Code (Latest Code Status on File) Date Activated Date Inactivated Comments 07/28/2023 4:46 PM 07/29/2023 12:06 AM Care Teams Prawn Trawler Hand Relationship Specialty Start Date End Date No, Physician PCP - General 05/02/24
[2024-11-07 12:26] LABS: Alanine Aminotransferase 32 U/L (6-50); Albumin Level 3.7 g/dL (3.5-5.1); Alkaline Phosphatase 165 U/L (38-126); Anion Gap 6 mmol/L (4-12); Aspartate Amino Transferase 78 U/L (17-59); Bilirubin,Total 1.4 mg/dL (0.2-1.3); Blood Urea Nitrogen 15 mg/dL (9-20); Carbon Dioxide 24 mmol/L (22-30); Chloride 109 mmol/L (98-107); Estimated CRCL calculation 120 ml/min; Estimated Glomerular Filt Rate > 60; Glucose 117 mg/dL (65-110); Lipase 301 U/L (23-300); Potassium 4.1 mmol/L (3.4-5.0); Sodium 139 mmol/L (137-145)
[2024-11-07 12:35] VITALS: BP 122/79; PULSE 74; RESP 18; O2SAT 95
--- NOTE | 2024-11-07 12:45 | ED.ABDPAIN ---
HPI - Abdominal Pain General Chief Complaint: Abdominal Pain Stated Complaint: umbilicus pain Time Seen by Provider: 11/07/24 12:04 History of Present Illness HPI narrative: Patient is a 59-year-old male who presents ER with pain around his umbilicus. Reports he was walking when he developed sudden onset pain. He has recently diagnosed with a hernia any felt a bulge in the area. He then reduced the bulge back into his body and the pain went away. He is having no nausea or vomiting. He has had normal bowel movements. Normal flatus. Pain free at this time. No fevers chills or sweats. No urinary symptoms. Related Data Home Medications ?Medication ?Instructions ?Recorded ?Confirmed ?Last Taken ?Type losartan 50 mg tablet 50 mg PO QAM 05/28/22 06/14/23 05/27/22 History omeprazole 40 mg capsule,delayed 40 mg PO QAM 05/28/22 06/14/23 05/27/22 History release trazodone 100 mg tablet 100 mg PO QHS PRN Insomnia 04/11/23 06/14/23 Unknown History isosorbide mononitrate 30 mg 30 mg PO DAILY 06/14/23 06/14/23 06/27/23 06:30 History tablet,extended release 24 hr clopidogrel 75 mg tablet (Plavix) 75 mg PO DAILY 06/27/23 06/14/23 06/24/23 History Allergies Allergy/AdvReac Type Severity Reaction Status Date / Time No Known Allergies Allergy Verified 11/07/24 09:55 Review of Systems Constitutional: Constitutional: Reports no additional constitutional complaints Gastrointestinal: Gastrointestinal: Reports no additional gastrointestinal complaints Genitourinary: Genitourinary: Reports no additional male genitourinary complaints [facility] Past Medical History Medical History (Updated 11/07/24 @ 12:52 by Ashwin Tellez MD) Portal vein thrombosis Thrombosis of superior mesenteric artery CAD (coronary artery disease) Elevated AFP Elevated ferritin Cirrhosis Hx of adenomatous colonic polyps Nonerosive esophageal reflux disease Epigastric pain Diarrhea Obesity Thrombocytopenia Elevated liver enzymes Encounter for screening colonoscopy Hypertension Essential (primary) hypertension GERD without esophagitis Dyslipidemia Surgical History Surgical History History of esophagogastroduodenoscopy (EGD) Family History Family History Mother Hypertension Grandparent No problems noted. Father Esophageal cancer Other Diabetes mellitus Family history of coronary artery disease Social History Social History Social History: The patient lives with his . His is the durable power inspector [employer]. He has 2 children. 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 Lifelong nonsmoker. He denies any marijuana or illicit drugs. Patient has a weekly mixed drink. Code status full code Smoking status: Never smoker Second hand tobacco smoke exposure: No Alcohol intake: former Drinks per week: 3 Alcohol use details: 1 glass of mixed drink w/ Vodka consumed weekly. Substance use: never Substance use type: does not use Lack of Transportation: No Lack of Food: Never True Current Housing: I Have Housing Concerned About Future Housing: No Difficulty Paying Gas/Electric Bills: No Difficulty Paying for Meds: No Currently Unemployed: No Education: High School Diploma/GED Difficulty w/ Childcare or Family Care: No Living arrangements: with family Gender identity (if verbalized by the patient): Male Spiritual care concerns: No Exam Narrative: GENERAL: Well-appearing, well-nourished, and in no acute distress. HEAD: Normocephalic, atraumatic. ENT: Mucous membranes moist. CHEST: Clear to auscultation. No respiratory distress. HEART: Regular rate and rhythm. Normal peripheral pulses. ABDOMEN: Soft, nontender, nondistended, small defect midline just superior to the umbilicus consistent with hernia. EXTREMITIES: Normal range of motion. No edema. SKIN: Warm, dry, no rash. NEURO: Alert and oriented x3. PSYCH: Normal mood and affect. Course Course Emergency Course: Patient resting comfortably. Given reassurance. Appropriate for discharge home. Will give referral to General surgery. Vital Signs Vital signs: Vital Signs Temperature 98 F 11/07/24 09:54 Pulse Rate 74 11/07/24 09:54 Respiratory Rate 16 11/07/24 09:54 Blood Pressure 155/83 H 11/07/24 09:54 Pulse Oximetry 98 11/07/24 09:54 Oxygen Delivery Room Air 11/07/24 09:54 Temperature 98 F 11/07/24 09:54 Pulse Rate 74 11/07/24 12:35 Respiratory Rate 18 11/07/24 12:35 Blood Pressure 122/79 11/07/24 12:35 Pulse Oximetry 95 11/07/24 12:35 Oxygen Delivery Room Air 11/07/24 09:54 MDM - Abdominal Pain Lab Data 11/07/24 12:07 11/07/24 12:08 Labs: Lab Results 11/07/24 11/07/24 Range/Units 12:07 12:08 WBC 5.5 (4.5-10.0) K/mm3 RBC 4.71 (4.6-6.20) M/mm3 Hgb 14.6 (14.0-18.0) g/dL Hct 45.4 (42.0-52.0) % MCV 96.4 (80-100) fl MCH 31.0 (26-34) pg MCHC 32.2 (32-36) g/dl RDW 14.6 H (11.5-14.5) % Plt Count 116 L (150-375) k/mm3 MPV 10.7 H (7.4-10.4) fl Immature Gran % (Auto) 0.2 (0-0.5) % Neut % (Auto) 73.1 (45.5-73.1) % Lymph % (Auto) 17.8 L (18.3-44.2) % Anderson % (Auto) 5.9 (2.6-8.5) % Eos % (Auto) 2.4 (0-4.4) % Baso % (Auto) 0.6 (0.2-1.2) % Lymph # (Auto) 0.97 (0.9-3.2) K/mm3 Anderson # (Auto) 0.3 (0.1-0.6) K/mm3 Eos # (Auto) 0.1 (0-0.3) K/mm3 Baso # (Auto) 0.0 (0.0-0.1) K/mm3 Abs Immat Gran (auto) 0.01 (0.00-0.031) K/mm3 Absolute Neuts (auto) 4.0 (1.3-6.7) K/mm3 Absolute Nucleated RBC 0.000 (0.0-0.012) K/mm3 Nucleated RBC % 0.0 (0.0-0.2) % % Immature Plt Fraction 2.8 (0.9-11.2) % Sodium 139 (137-145) mmol/L Potassium 4.1 (3.4-5.0) mmol/L Chloride 109 H (98-107) mmol/L Carbon Dioxide 24 (22-30) mmol/L Anion Gap 6 (4-12) mmol/L BUN 15 (9-20) mg/dL Creatinine 0.67 L (0.7-1.3) mg/dL Estim Creat Clear Calc 120 ml/min Estimated GFR > 60 (59 - ) Glucose 117 H (65-110) mg/dL Calcium 9.0 (8.4-10.2) mg/dL Total Bilirubin 1.4 H (0.2-1.3) mg/dL AST 78 H (17-59) U/L ALT 32 (6-50) U/L Alkaline Phosphatase 165 H (38-126) U/L Total Protein 7.0 (6.3-8.2) g/dL Albumin 3.7 (3.5-5.1) g/dL Lipase 301 H (23-300) U/L Urine Color Dark yellow (Yellow) Urine Appearance Clear (Clear) Urine pH 6.5 (5.0-9.0) Ur Specific [place] 1.022 (1.001-1.035) Urine Protein Negative (Negative) mg/dL Urine Glucose (UA) Negative (Negative) mg/dL Urine Ketones Trace H (Negative) mg/dL Ur Blood (Man) Negative (Negative) Urine Nitrate Negative (Negative) Urine Bilirubin Negative (Negative) Urine Urobilinogen 2.0 H (<2.0) mg/dL Leukocyte Esterase Rfl Trace H (Negative) AZAM/UL Urine RBC 0-2 (0-2) /hpf Urine WBC 0-5 (0-3) /hpf Ur Squamous Epith Cells None seen (Few) /hpf Urine Bacteria None seen /hpf Urine Casts 0-2 Discharge Plan Discharge Clinical Impression: Abdominal wall hernia Patient Disposition: Home Condition: Stable Instructions: Umbilical Hernia (ED) Additional Instructions: Return to the emergency department if you develop severe abdominal pain, severe nausea and vomiting to the point where you are unable to keep down fluids, if you develop chest pain or difficulty breathing, blood in your stool, dizziness or fainting, or if you develop any other new or concerning symptoms as these could be signs of more serious medical illness. Try to stay well hydrated. Patient Language: Yi Prescriptions: No Action trazodone 100 mg tablet 100 mg PO QHS PRN (Reason: Insomnia) losartan 50 mg tablet 50 mg PO QAM omeprazole 40 mg capsule,delayed release(DR/EC) 40 mg PO QAM aspirin [Children's Aspirin] 81 mg Tablet,Chewable 81 mg PO DAILY@0800 Qty: 30 0RF atorvastatin 40 mg Tablet 40 mg PO QPM Qty: 30 0RF nitroglycerin [Nitrostat] 0.4 mg Tablet, Sublingual 0.4 mg sublingual Q5MIN PRN (Reason: Chest Pain) Qty: 25 0RF isosorbide mononitrate 30 mg tablet extended release 24 hr 30 mg PO DAILY clopidogrel [Plavix] 75 mg tablet 75 mg PO DAILY nadolol 20 mg tablet 20 mg PO .daily Qty: 30 11RF Follow-up/Referrals: Gertrudis,Radha Welch MD [Primary Care Provider] - Hernan Vaughan MD [Physician] - 1 Week
== END 2024-11-07 13:08 | disposition home or self-care (01) ==
PROVIDERS: Emergency Medicine; Emergency Provider Emergency Medicine; PCP Student in an Organized Health Care Education/Training Program
DX: K43.9 Ventral hernia without obstruction or gangrene (principal); I25.10 Atherosclerotic heart disease of native coronary artery without angina pectoris; I10 Essential (primary) hypertension; E78.5 Hyperlipidemia, unspecified; K74.60 Unspecified cirrhosis of liver; K21.9 Gastro-esophageal reflux disease without esophagitis; Z86.0101 Personal history of adenomatous and serrated colon polyps; Z79.82 Long term (current) use of aspirin; Z79.02 Long term (current) use of antithrombotics/antiplatelets; Z79.899 Other long term (current) drug therapy
CPT/HCPCS: 36415; 80053; 81001; 83690; 85025; 85055; 99283

== ENCOUNTER 2025-01-10 11:35 | Outpatient (CLI) | payer BC, SELFPAY ==
--- OUTSIDE RECORDS SUMMARY | 2025-01-10 11:42 | XMS_ITS | Clinical Summary ---
Author Organization [facility] [place] [address] Address [address] [place] [address] Care Team Providers Care Rigging Slinger Name Role Phone Radha Caba MD Primary Care Provider Allergies No known active allergies Medications omeprazole (PriLOSEC) 40 mg capsule Take 1 capsule (40 mg total) by mouth daily Active traZODone (DESYREL) 100 mg tablet Take 1 tablet (100 mg total) by mouth as needed 3 Active nitroglycerin (NITROSTAT) 0.[address] 1 tablet (0.4 mg total) under the tongue every 5 (five) minutes as needed for chest pain (May repeat every 5 minutes up to 3 doses in 15 minutes.) 25 tablet 11 3 Active aspirin 81 mg enteric coated tablet Take 1 tablet every day by oral route. 2 Active nadoloL (CORGARD) 20 mg tabletIndicatio ns:Secondary esophageal varices without bleeding (HCC) Take 1 tablet (20 mg total) by mouth daily 90 tablet 3 4 05/02/20 25 Active losartan (COZAAR) 50 mg tablet Take 1 tablet (50 mg total) by mouth daily 90 tablet 3 5 Active atorvastatin (LIPITOR) 40 mg tablet Take 1 tablet (40 mg total) by mouth nightly 90 tablet 3 5 Active benzonatate (TESSALON) 200 mg capsule TAKE 1 [address]SULE ORAL ROUTE 3 TIMES PER DAY NEEDED FOR COUGH 12/20/19 25 Discontinue d(No longer taking - Do not display on AVS) Active Problems Problem Noted Date Diagnosed Date Class 1 obesity due to exces s calories with serious comorbidity and body mass index (BMI) of 32.0 to 32.9 in adult 10/26/2023 Other cirrhosis of liver 10/26/2023 Portal vein thrombosis 10/26/2023 Secondary esophageal varices without bleeding Coronary artery disease of n ative artery of [place] heart with stable angina pectoris 05/30/2022 Status post coronary artery stent placement 05/19 Essential hypertension 07/06/2020 Mixed hyperlipidemia 07/06/2020 Resolved Problems Problem Noted Date Diagnosed Date Resolved Date Unstable angina pectoris 07/13/202302/2024 CABALLERO (dyspnea on exertion) 07/06/2020 BMI 34.0-34.9,adult 07/06/2020 10/26/19 24 Encounters Date Type Department Care Team Description 01/09/2025 Telephone [facility] Gastroenterology [address] [place] [address] [facility] [place] [address] [place] [phone] Loni Ocampo 12/27/2024 Telephone [facility] Gastroenterology [facility] [address] [place] [address] [place] [phone] Michelle Beard RN 12/19/2024 3:45 PM CDT Office Visit [facility] Medical Group Cardiology [address] [facility] [address] [place] [address] Amador Hicks MD Status post coronary artery stent placement (Primary Dx); Coronary artery disease of [place] artery of [place] heart with stable angina pectoris 12/11/2024 Telephone [facility] Gastroenterology [facility] [place] [address] [place] [address] Loni Ocampo 11/13/2024 Telephone [facility] Gastroenterology [facility] [place] [address] [place] [phone] Loni Ocampo from Last 3 Months Immunizations Immunization Administration [...] on file Legal Sex Male 8:01 AM CRAS Gender Identity Not on file Sexual Orientation Not on file Obstetrics History Last Filed Vital Signs Vital Sign Reading Time Taken Comments Blood Pressure 110/74 12/19/2024 3:45 PM CDT Pulse 83 12/19/2024 3:45 PM CDT Temperature 36.6 C (97.8 F) 07/28/2023 12:49 PM CRAS Respiratory Rate 17 07/28/2023 7:12 PM CRAS Oxygen Saturation 96% 12/19/2024 3:45 PM CDT Inhaled Oxygen Concentration - - Weight 101.6 kg (224 lb) 12/19/2024 3:45 PM CDT Height 175.3 cm (5' 9) 12/19/2024 3:45 PM CDT Body Mass Index 33.08 12/19/2024 3:45 PM CDT Plan of Treatment Health Maintenance Due Date Last Done Comments Colon Cancer Screening-Colonoscopy 1966 Hepatitis C Screening 1966 Prostate Cancer Screening-PSA 1966 Hepatitis B Screening 1984 Regular Well Visit/Exam 18-64 1984 Pneumococcal vaccine <65 (1 of 2 - PCV) 1985 Zoster Vaccine (1 of 2) 2016 Depression Screening 09/20/2024 09/21/2023, 09/21/19 24 Influenza Vaccine (#1) 2025 DTaP/Tdap/Td Vaccine (2 - Td or Tdap) 01/06/2030, 06/19/2013 Medical Devices Implanted Type Area Technology Development Intern Device Identifier Shelf Expiration Date Model / Serial / Lot [employer] Joyce Stent Coronary Drug Eluting Rapid Exchange Synergy Xd 3.24v69br [place] Chromium [id number] - S0 - [id number] Implanted:Qty : 1 on 07/28/2023 by Gianluca Licona MD at [facility] Stent Left: Circumflex Coronary Artery [employer] Joyce 03/05/2025 [id number] / 0 / [id number] [employer] Joyce Synergy Xd Monorail 2.5mm 28mm 144cm Delivery System 1 Access [id number] - S0 - [id number] Implanted:Qty : 1 on 07/28/2023 by Gianluca Licona MD at [facility] Stent Left: Circumflex Coronary Artery [employer] Joyce 01/27/2024 [id number] / 0 / [id number] Bob Vascular Device Clsr Perclose Prostyle Sut-Mediatd Closure-Repai r Sys 35127-49 - S0 - [id number] Implanted:Qty : 1 on 07/28/2023 by Gianluca Licona MD at [facility] Vascular Closure Device Right: Femoral Bob Vascular 04/18/2025 [id number] / 0 / [id number] Insurance [facility] ACCESS CHOICE ANTHEM ACCESS CHOICE Advance Directives For more information, please contact: [phone] * Full Code (Latest Code Status on File) Date Activated Date Inactivated Comments 07/28/2023 4:46 PM 07/29/2023 12:06 AM Care Teams Rigging Slinger Relationship Specialty Start Date End Date Radha Caba MD [address] [facility] [address] [place] [address] PCP - General Family Medicine 12/19/24
--- OUTSIDE RECORDS SUMMARY | 2025-01-10 11:42 | XMS_ITS | Clinical Summary ---
Author Organization [facility] Address [address] [place] [address] Care Team Providers Care Return To Vendor Name Role Phone Radha Cbaa MD Primary Care Provider + Allergies No known active allergies Medications atorvastatin (LIPITOR) 40 MG tablet Take 1 tablet (40 mg total) by mouth nightly. Active losartan (COZAAR) 50 MG tablet Take 1 tablet (50 mg total) by mouth daily. 5 Active nadolol (CORGARD) 20 MG tablet Take 1 tablet (20 mg total) by mouth daily. 4 Active nitroglycerin (NITROSTAT) 0.4 MG SL tablet PLEASE SEE ATTACHED FOR DETAILED DIRECTIONS Active aspirin EC 81 MG tablet Take 1 tablet (81 mg total) by mouth daily. Active traZODone (DESYREL) 150 MG tabletIndication s:Primary insomnia Take 1 tablet (150 mg total) by mouth nightly at bedtime. 90 tablet 3 5 10/24/19 26 Active omeprazole (PRILOSEC) 40 MG capsuleIndicatio ns:Gastroesophag eal reflux disease, unspecified whether esophagitis present Take 1 capsule (40 mg total) by mouth daily. 90 capsule 3 5 10/24/19 26 Active sildenafil (REVATIO) 20 MG tabletIndication s:Erectile dysfunction, unspecified erectile dysfunction type TAKE 1-5 TABLETS ONE HOUR PRIOR TO SEXUAL ACTIVITY 90 tablet 5 Active Active Problems Problem Noted Date Diagnosed Date Portal vein thrombosis 10/26/2023 Overview (10/23/2024): In 2023. Was on eliquis for 3 months. Resolved. Esophageal varices (CMS/HCC HHS/HCC) 07/03/2023 Overview (10/23/2024): EGD 06/27/23 repeat 2025 Assessment & Plan (10/23/2024 3:24 PM CDT): Secondary to cirrhosis. Nonbleeding. Specialist monitoring. Liver cirrhosis secondary to MIRANDA (nonalcoholic steatohepatitis) (CMS/HCC HHS/HCC) 04/25/2023 Overview (10/23/2024): Nonalcoholic. Diagnosed in April 2023. Liver enzymes were elevated and was followed with [facility]N. No prior ascites. Gi is Dr. Bergman. MRI in July 2024. Next appt January 2025. Assessment & Plan (10/23/2024 3:24 PM CDT): Follows with GI specialist. Stable. Erectile dysfunction 01/25/2023 Overview (10/23/2024): Has been an issue but has not tried medication. Noted the issue when he was going through treatment for coronary artery disease. His specialist did not want him taking sildenafil at that time. Assessment & Plan (10/23/2024 3:25 PM CDT): Not controlled. Discussed that his cardiovascular disease is now stable. Sildenafil should not be combined with nitroglycerin. He will confirm with cardiology they are comfortable with him doing a trial of sildenafil now. Insomnia 01/25/2023 Overview (10/23/2024): Takes trazodone. Has not been working well. Initially seem to help. Assessment & Plan (10/23/2024 3:25 PM CDT): Not controlled. Trial increase trazodone to 150 mg nightly. Coronary artery disease 07/29/2021 Overview (10/23/2024): S/p stent x 3. Distal RCA and x2 circumflex artery. Sees Dr. Hicks at [place]. Takes aspirin now. Has nitro available. Also on beta malick. Assessment & Plan (10/23/2024 3:27 PM CDT): Stable. Managed and monitored by Dr. Hicks. Mixed hyperlipidemia 07/06/2020 Overview (10/23/2024): Takes atorvastatin. Assessment & Plan (10/23/2024 3:26 PM CDT): CMP and lipid panel managed and monitored by cardiology. Acid reflux 01/07/2020 Overview (10/23/2024): Pt does not recall bleeding esophageal varices. Taking omeprazole. Has historically had bad GERD symptoms. Essential hypertension 01/07/2020 Overview (10/23/2024): Home readings run 120s/80s. Takes losartan, nadolol. Assessment & Plan (10/23/2024 3:24 PM CDT): Managed by specialist. Marta. Continue losartan, nadolol. Encounters Date Type Department Care Team Description 12/05/2024 Scan [facility] Scanned, [facility] 11/07/2024 Scan [facility] Scanned, Doc [facility] 10/30/2024 Scan [facility] Scanned, Doc Med Group 10/24/2024 Results Follow-Up [address] [place] [address] Radha Caba MD VARICELLA ZOSTER IGG, PROSTATE SPECIFIC ANTIGEN,SCREENING 10/23/2024 7:50 AM CDT Office Visit [address] [place] [address] Radha Caba MD Establish Care 10/23/2024 - 10/23/2024 11:59 PM CDT Hospital Encounter [facility] [address] Discharge Disposition: Home or Self Care (Routine Discharge) 10/23/2024 Orders Only [facility] Medical [facility] Family Medicine - [place] [address] [place] [address] Veronica Cotton MA 10/23/2024 Travel from Last 3 Months Immunizations Immunization Administration Dates Next Due COVID-19 Vaccine (Generic) 10/30/2020 MODERNA COVID-19 (12+) MRNA, LNP-S, PF, 100 MCG/ 0.5 ML DOSE 10/30/2020 Td, Adsorbed, Preservative F ree, Adult Use, Lf Unspecified 06/19/2013 Tdap (Generic) 01/07/2020 Family History Medical History Relation Comments Substance Abuse Brother 1 No Known Problems Brother 2 unknown cause, estranged No Known Problems Brother 3 No Known Problems Daughter Esophageal cancer Father exposed to shae micals in [employer] Brain Aneurysm Mother Heart Disease Sister 1 No Known Problems Sister 2 No Known Problems Sister 3 No Known Problems Son Relation Status Comments Brother 1 Brother 2 Brother 3 Alive Daughter Alive Father Mother Sister 1 Alive Sister 2 Alive Sister 3 Alive Son Alive Social History Tobacco Use Types Packs/Day Years Used Date Smoking Tobacco: Never Smokeless Tobacco: Never Tobacco Cessation:Counseling Given: No Alcohol Use Standard Drinks/Week Comments Not Currently 0 (1 standard drink = 0.6 oz pur e alcohol) PHQ-2 Answer Date Recorded Patient Health Questionnaire-2 Score 0 10/23/2024 Sex and Gender Information Value Date Recorded Sex Assigned at Not on file Legal Sex Male 8:08 PM CDT Gender Identity Male 10/23/2024 8:16 AM CDT Sexual Orientation Not on file 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 on file Not on file Not on file Last Filed Vital Signs Vital Sign Reading Time Taken Comments Blood Pressure 127/82 10/23/2024 8:07 AM CDT home reading Pulse 75 10/23/2024 7:50 AM CDT Temperature 36.7 C (98 F) 10/23/2024 7:50 AM CDT Respiratory Rate - - Oxygen Saturation 97% 10/23/2024 7:5 0 AM CDT Inhaled Oxygen Concentration - - Weight 102.2 kg (225 lb 6.4 oz) 10/23/2024 7:50 AM CDT Height 175.3 cm (5' 9) 10/23/2024 7:50 AM CDT Body Mass Index 33.29 10/23/2024 7:50 AM CDT Plan of Treatment Upcoming Encounters Date Type Department Care Team (Late st Contact Info) Description 10/24/2025 7:50 AM CDT Office Visit [facility] Medical Group Family Medicine - [place] [address] [place] [id number] Radha Caba MD [address] [place] [address] Health Maintenance Due Date Last Done Comments ASCVD LDL 1966 Colorectal Cancer Screening Colonoscopy (10 Years) 1966 Hepatitis C 1984 Hepatitis B Vaccines (1 of 3 - 19+ 3-dose series) 1985 Pneumococcal Vaccine: 50+ Years (1 of 2 - PCV) 1985 Zoster Vaccines (1 of 2) 2016 COVID-19 Vaccine (4 - 2023-2 5 season) 2024 11/07/2020, 10/30/2020, 10/30/2020 Annual Physical 10/23/2025 10/23/2024 DTaP, Tdap and Td Vaccines ( 2 - Td or Tdap) 01/06/2030 01/07/2020, 06/19/2013 PHQ-2 (Physician [place]) Completed 10/23/2024 Meningococcal B Vaccine Aged Out No l onger eligible based on patient's age to complete this topic Meningococcal Vaccine Aged Out No heidy brunilda eligible based on patient's age to complete this topic RSV Immunizations Under 20 Months Aged Out No longer eligible b ased on patient's age to complete this topic Procedures Procedure Name Priority Date/Time Associated Diagnosis Comments PROSTATE SPECIFIC ANTIGEN,SCREENING Routine 10/23/2024 9:43 AM CDT Special screening for malignant neoplasm of prostate VARICELLA ZOSTER IGG Routine 10/23/2024 9:43 AM CDT Immunity status testing from Last 3 Months Results * VARICELLA ZOSTER IGG (10/23/2024 9:43 AM CDT) VARICELLA ZOSTER IGG EIA POSITIVE 10/24/2024 11:[address] [facility] Comment:IN THE ABSENCE OF AC KELY SYMPTOMS, A POSITIVE RESULT SUGGESTS PAST IMMUNITY. 10/23/2024 9:43 AM CDT Radha Caba MD LABORATORY Final Re sult Performing Organization Address City/[facility]/ZIP Co de Phone Number [facility] [address] [place] [address], [place] [phone] * PROSTATE SPECIFIC ANTIGEN,SCREENING (10/23/2024 9:43 AM CDT) PSA 0.83 <4.00 NG/ML 10/23/2024 3:30 PM CDT [facility] Comment: ASSAY PERFORMED BY [employer]UNOAS[employer] METHODOLOGY USING [employer] DIMENSION REAGENT. PATIENT RESULTS DETERMINED BY ASSAYS FROM DIFFERENT MANUFACTURERS AND/OR BY DIFFERENT METHODS MAY NOT BE COMPARABLE. 10/23/2024 9:43 AM CDT Radha Caba MD LABORATORY Final Re sult Performing Organization Address [facility] de Phone Number [facility] [address] [place] [address], [place] [phone] from Last 3 Months Insurance [facility] Care Teams Return To Vendor Relationship Specialty Start Date End Date Radha Caba MD [address] [facility] [address] [place] [address] PCP - General FAMILY PRACTICE 10/23/24
--- OUTSIDE RECORDS SUMMARY | 2025-01-10 11:42 | XMS_ITS | Referral Summary ---
Author Organization [facility] [place] [address] [place] [address] [address] [place] [address] Care Team Providers Care Commissioner Of Internal Revenue Name Role Phone Radha Caba MD Primary Care Provider Encounters Date Type Department Care Team Description 01/09/2025 Telephone [facility] Gastroenterology [address] [facility] Advanced Medicine [address]th [place] [address] [place] [phone] Loni Ocampo 12/27/2024 Telephone [facility] Gastroenterology [address] [facility] Medicine 12th [place] [address] [place] [address] Michelle Beard RN 12/19/2024 3:45 PM CDT Office Visit [facility] Medical Group Cardiology [address] [facility] [address] [place] [address] Amador Hicks MD Status post coronary artery stent placement (Primary Dx); Coronary artery disease of [place] artery of [place] heart with stable angina pectoris 12/11/2024 Telephone [facility] Gastroenterology [address] [facility] Medicine [address]th [place] [address] [place] [address] Loni Ocampo 11/13/2024 Telephone [facility] Gastroenterology [address] [facility] Medicine [address]th [place] [address] [place] [address] Loni Ocampo from Last 3 Months Allergies No known [...] 3 TIMES PER DAY NEEDED FOR COUGH 4 12/20/19 25 Discontinue d(No longer taking - [...] artery disease of n ative artery of [place] heart with stable angina pectoris 05/30/2022 Status [...] on file Legal 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 Gender Identity Not on file Sexual Orientation Not on file Last Filed Vital Signs Vital Sign Reading Time Taken Comments Blood Pressure 110/74 12/19/2024 3:45 PM CDT Pulse 83 12/19/2024 3:45 PM CDT Temperature 36.6 C (97.8 F) 07/28/2023 12:49 PM TRACK WORKER Respiratory Rate 17 07/28/2023 7:12 PM TRACK WORKER Oxygen Saturation 96% 12/19/2024 3:45 PM CDT Inhaled Oxygen Concentration - - Weight 101.6 kg (224 lb) 12/19/2024 3:45 PM CDT Height 175.3 cm (5' 9) 12/19/2024 3:45 PM CDT Body Mass Index 33.08 12/19/2024 3:45 PM CDT Plan of Treatment Not on file Medical Devices Implanted Type Area Bicycle Messenger Device Identifier Shelf Expiration Date Model / Serial / Lot [employer]is Joyce Stent Coronary Drug Eluting Rapid Exchange Synergy Xd 3.35u56si [place] Chromium [id number] 0 - S0 - [id number] Implanted:Qty : 1 on 07/28/2023 by Gianluca Licona MD at [facility] Stent Left: Circumflex Coronary Artery [place] [employer] Joyce 03/05/2025 [id number] / 0 / [id number] [place] [employer] Joyce Synergy Xd Monorail 2.5mm 28mm 144cm Delivery System 1 Access [id number] - S0 - [id number] Implanted:Qty : 1 on 07/28/2023 by Gianluca Licona MD at [facility] Stent Left: Circumflex Coronary Artery [place] [employer] Joyce 01/27/2024 [id number] / 0 / [id number] Bob Vascular Device Clsr Perclose Prostyle Sut-Mediatd Closure-Repai r Sys 63542-84 - S0 - [id number] Implanted:Qty : 1 on 07/28/2023 by Gianluca Licona MD at [facility] Vascular Closure Device Right: Femoral Bob Vascular 04/18/2025 [id number] / 0 / [id number] Insurance [employer] ACCESS CHOICE [employer] CHOICE Member Subscriber Plan / Payer ( fective 2019-Present) Name:Vikas Polk Relation to Subscriber:Self Name:Vikas Polk Payer ID:[id number] (NAIC) Type:[employer]house Address: [address] [place] [id number] Advance Directives For more information, please contact: [phone] * Full Code (Latest Code Status on File) Date Activated Date Inactivated Comments 07/28/2023 4:46 PM 07/29/2023 12:06 AM Care Teams Commissioner Of Internal Revenue Relationship Specialty Start Date End Date Radha Caba MD [address] [facility] [address] [place] [address] PCP - General Family Medicine 12/19/24
--- OUTSIDE RECORDS SUMMARY | 2025-01-10 11:42 | XMS_ITS | Data Portability ---
Author Organization [place] [facility], Main Office Address [address] [place] [address] Assessment No assessment recorded. Plan of Treatment [...] n referr al 2022 023 [email or web address] 3 [facility], [address], [place], [address], 3 13:51:07 Procedures None record ed. Surgeries None record ed. Imaging CT, abdome n + pelvis , w/ contra st - *Pleas e call pt to schedu le* 2022 023 [email or web address] [address] [place] [facility], [facility] [place], [address], 4 08:55:45 Medication Orders Medrol (Jesse) 4 mg tablet s in a dose pack 2023 024 JOSE MANUEL [facility][id number], [address] [place], [address], 4 16:51:15 cetiri zine 10 mg tablet 2023 024 [email or web address] [facility] #[id number], [address] [place], [address], 4 11:41:57 zolpid em 10 mg tablet 2022 023 [facility] [address] [place], [address], 4 16:07:52 tadala niall 20 mg tablet 2022 023 [email or web address] [facility] [address] [place], [address], 4 07:53:43 Patient TargetsNo targets recorded. Patient InstructionsNo instructions recorded. Reason for Referral Orthopedic Surgeon Referral for Acquired trigger finger Referring Physician: Marta Fox, Family Medicine, Encounter Date: 01/25/2023 Results Created Date Observation Date Name Description Value Unit Range Abnormal Flag Note LastModifiedBy Organization Detail LastModifiedTime 02/04/2002/05/2023 CLOST RIDIU M DIFFI CILE TOXIN /GDH W/REF L TO PCR clostridium difficile toxin/gdh w/refl to PCR SEE NOTE CLOST RIDIU M DIFFI CILE TOXIN /GDH W/REF L TO PCR Micro Numbe r: [id number] Test Statu s: Final Speci men Sourc e: Stool Speci men Quali ty: Adequ ate GDH Antig en: Not Detec kim Toxin A and B: Not Detec kim COMME NT: No toxig enic C. diffi cile detec kim For addit ional infor jessica nolasco e refer to http: //[facility] gabrielle bobo.Que stDia gnost ics.c om/fa q/FAQ 136 (This link is being provi ded for infor patty nal/e liliam wang purpo ses only. ) Not Available [facility] [address], [place], [address], 02/05/2023 17:13:03 02/04/20 23 02/09/2023 LIPID PANEL , STAND ESTHER cholesterol, total 140 mg/dL <200 normal Not Available [address] [place], [address], 02/09/2023 13:32:56 02/04/2002/09/2023 LIPID PANEL , STAND ESTHER HDL cholesterol 46 mg/dL > or = 40 normal Not Available [facility] [address] [address] [place], [address], 02/09/2023 13:32:56 02/04/2002/09/2023 LIPID PANEL , STAND ESTHER triglyceride s 83 mg/dL <150 normal Not Available [facility] [address] [address] [place], [address], 02/09/2023 13:32:56 02/04/2002/09/2023 LIPID PANEL , STAND ESTHER LDL-choleste rol 77 mg/dL _(shira c) normal Refer ence range : <100 Wero able range <100 mg/dL for prima ry preve ntion ; <70 mg/dL for patie nts with CHD or diabe tic patie nts with > or = 2 CHD risk facto rs. LDL-C is now calcu lated using the Ame n-Hop kins dayanau bairon n, which is a valid ated novel emmanuel lovett than the Fried kaushal equat ion in the estim ation of LDL-C . Ame bobo SS et al. MALIK. 2013; 310(1 9): 2061- 2068 (http ://ed ucati on.Qu Jayy smith tics. com/f aq/FA Q164) Not Available [facility] [address] [place], [address], 02/09/2023 13:32:56 02/04/2002/09/2023 LIPID PANEL , STAND ESTHER chol/HDLC ratio 3.0 (calc ) <5.0 normal Not Available [facility] [address] [place], [address], 02/09/2023 13:32:56 02/04/20 23 02/09/2023 LIPID PANEL , STAND ESTHER non HDL cholesterol 94 mg/dL _(shira c) <130 normal For patie nts with diabe migue plus 1 major ASCVD risk facto r, treat ing to a non-H DL-C goal of <100 mg/dL (LDL- C of <70 mg/dL ) is avis potts optio n. Not Available [address] [place], [address], 02/09/2023 13:32:56 02/04/2002/09/2023 HEPAT IC FUNCT ION PANEL protein, total 6.4 g/dL 6.1-8. 1 normal Not Available [address], [address], 02/09/2023 13:32:57 02/04/2002/09/2023 HEPAT IC FUNCT ION PANEL albumin 3.8 g/dL 3.6-5. 1 normal Not Available [address] [address] [place], [address], 02/09/2023 13:32:57 02/04/2002/09/2023 HEPAT IC FUNCT ION PANEL globulin 2.6 g/dL_ (calc ) 1.9-3. 7 normal Not Available [address] [address] [place], [address], 02/09/2023 13:32:57 02/04/2002/09/2023 HEPAT IC FUNCT ION PANEL albumin/glob ulin ratio 1.5 (calc ) 1.0-2. 5 normal Not Available [facility] [address], [address], 02/09/2023 13:32:57 02/04/2002/09/2023 HEPAT IC FUNCT ION PANEL bilirubin, total 1.1 mg/dL 0.2-1. 2 normal Not Available [facility] [address] [place], [address], 02/09/2023 13:32:57 02/04/20 23 02/09/2023 HEPAT IC FUNCT ION PANEL bilirubin, direct 0.3 mg/dL < or = 0.2 high Not Available [address], [address], 02/09/2023 13:32:57 02/04/2002/09/2023 HEPAT IC FUNCT ION PANEL bilirubin, indirect 0.8 mg/dL _(shiar c) 0.2-1. 2 normal Not Available [address], [address], 02/09/2023 13:32:57 02/04/2002/09/2023 HEPAT IC FUNCT ION PANEL alkaline phosphatase 123 U/L 35-144 normal Not Available [facility] [employer] [address], [address], 02/09/2023 13:32:57 02/04/2002/09/2023 HEPAT IC FUNCT ION PANEL AST 69 U/L 10-35 high Not Available [address], [address], 02/09/2023 13:32:57 02/04/2002/09/2023 HEPAT IC FUNCT ION PANEL ALT 47 U/L 9-46 high Not Available [address], [address], 02/09/2023 13:32:57 02/04/2002/09/2023 CBC (INCL UDES DIFF/ PLT) white blood cell count 3.7 thous and/u L 3.8-10 .8 low Not Available [address], [address], 02/09/2023 13:32:58 02/04/20 23 02/09/2023 CBC (INCL UDES DIFF/ PLT) red blood cell count 4.85 lizzy on/uL 4.20-5 .80 normal Not Available [address], [address], 02/09/2023 13:32:58 02/04/2002/09/2023 CBC (INCL UDES DIFF/ PLT) hemoglobin 15.4 g/dL 13.2-1 7.1 normal Not Available [address], [address], 02/09/2023 13:32:58 02/04/2002/09/2023 CBC (INCL UDES DIFF/ PLT) hematocrit 45.9 % 38.5-5 0.0 normal Not Available [address], [address], 02/09/2023 13:32:58 02/04/2002/09/2023 CBC (INCL UDES DIFF/ PLT) MCV 94.6 fL 80.0-1 00.0 normal Not Available [address], [address], 02/09/2023 13:32:58 02/04/2002/09/2023 CBC (INCL UDES DIFF/ PLT) MCH 31.8 pg 27.0-3 3.0 normal Not Available [address], [address], 02/09/2023 13:32:58 02/04/2002/09/2023 CBC (INCL UDES DIFF/ PLT) MCHC 33.6 g/dL 32.0-3 6.0 normal Not Available [address], [address], 02/09/2023 13:32:58 02/04/2002/09/2023 CBC (INCL UDES DIFF/ PLT) RDW 13.8 % 11.0-1 5.0 normal Not Available [address], [address], 02/09/2023 13:32:58 02/04/20 23 02/09/2023 CBC (INCL UDES DIFF/ PLT) platelet count 95 thous and/u L 140-40 0 low Not Available [address], [address], 02/09/2023 13:32:58 02/04/2002/09/2023 CBC (INCL UDES DIFF/ PLT) MPV 11.3 fL 7.5-12 .5 normal Not Available [address], [address], 02/09/2023 13:32:58 02/04/2002/09/2023 CBC (INCL UDES DIFF/ PLT) absolute neutrophils 2279 cells /uL 1500-7 800 normal Not Available [address], [address], 02/09/2023 13:32:58 02/04/20 23 02/09/2023 CBC (INCL UDES DIFF/ PLT) absolute lymphocytes 1103 cells /uL 850-39 00 normal Not Available [address], [address], 02/09/2023 13:32:58 02/04/20 23 02/09/2023 CBC (INCL UDES DIFF/ PLT) absolute monocytes 207 cells /uL 200-95 0 normal Not Available [address], [address], 02/09/2023 13:32:58 02/04/2002/09/2023 CBC (INCL UDES DIFF/ PLT) absolute eosinophils 81 cells /uL 15-500 normal Not Available [address], [address], 02/09/2023 13:32:58 02/04/20 23 02/09/2023 CBC (INCL UDES DIFF/ PLT) absolute basophils 30 cells /uL 0-200 normal Not Available [address], [address], 02/09/2023 13:32:58 02/04/20 23 02/09/2023 CBC (INCL UDES DIFF/ PLT) neutrophils 61.6 % normal Not Available [address], [address], 02/09/2023 13:32:58 02/04/20 23 02/09/2023 CBC (INCL UDES DIFF/ PLT) lymphocytes 29.8 % normal Not Available [facility] [address], [address], 02/09/2023 13:32:58 02/04/20 23 02/09/2023 CBC (INCL UDES DIFF/ PLT) monocytes 5.6 % normal Not Available [address], [address], 02/09/2023 13:32:58 02/04/20 23 02/09/2023 CBC (INCL UDES DIFF/ PLT) eosinophils 2.2 % normal Not Available [facility] [address], [address], 02/09/2023 13:32:58 02/04/20 23 02/09/2023 CBC (INCL UDES DIFF/ PLT) basophils 0.8 % normal Not Available [address], [address], 02/09/2023 13:32:58 02/04/20 23 02/09/2023 CBC (INCL UDES DIFF/ PLT) comment(s) Revie w of the perip heral smear revea ls decre ased numbe rs of plate lets. Giant plate lets noted . Revie w of perip heral smear confi isai autom ated resul ts. Not Available [address], [address], 02/09/2023 13:32:58 02/04/20 23 02/09/2023 URINA LYSIS , COMPL ETE W/REF KATLYN TO CULTU RE color YELLOW yellow normal Not Available [address], [address], 02/09/2023 13:32:59 02/04/20 23 02/09/2023 URINA LYSIS , COMPL ETE W/REF KATLYN TO CULTU RE appearance CLEAR clear normal Not Available [address], [address], 02/09/2023 13:32:59 02/04/20 23 02/09/2023 URINA LYSIS , COMPL ETE W/REF KATLYN TO CULTU RE specific gravity 1.026 1.001- 1.035 normal Not Available [address], [address], 02/09/2023 13:32:59 02/04/20 23 02/09/2023 URINA LYSIS , COMPL ETE W/REF KATLYN TO CULTU RE pH 5.5 5.0-8. 0 normal Not Available [address], [address], 02/09/2023 13:32:59 02/04/20 23 02/09/2023 URINA LYSIS , COMPL ETE W/REF KATLYN TO CULTU RE glucose NEGATI VE negati ve normal Not Available [address], [address], 02/09/2023 13:32:59 02/04/20 23 02/09/2023 URINA LYSIS , COMPL ETE W/REF KATLYN TO CULTU RE bilirubin NEGATI VE negati ve normal Not Available [address], [address], 02/09/2023 13:32:59 02/04/20 23 02/09/2023 URINA LYSIS , COMPL ETE W/REF KATLYN TO CULTU RE ketones NEGATI VE negati ve normal Not Available [address], [address], 02/09/2023 13:32:59 02/04/20 23 02/09/2023 URINA LYSIS , COMPL ETE W/REF KATLYN TO CULTU RE occult blood NEGATI VE negati ve normal Not Available [facility] [address], [address], 02/09/2023 13:32:59 02/04/20 23 02/09/2023 URINA LYSIS , COMPL ETE W/REF KATLYN TO CULTU RE protein NEGATI VE negati ve normal Not Available [facility] [address], [address], 02/09/2023 13:32:59 02/04/20 23 02/09/2023 URINA LYSIS , COMPL ETE W/REF KATLYN TO CULTU RE nitrite NEGATI VE negati ve normal Not Available [facility] [address], [address], 02/09/2023 13:32:59 02/04/20 23 02/09/2023 URINA LYSIS , COMPL ETE W/REF KATLYN TO CULTU RE leukocyte esterase NEGATI VE negati ve normal Not Available [address], [address], 02/09/2023 13:32:59 02/04/20 23 02/09/2023 URINA LYSIS , COMPL ETE W/REF KATLYN TO CULTU RE WBC NONE SEEN /hpf < or = 5 normal Not Available [facility] [address], [address], 02/09/2023 13:32:59 02/04/20 23 02/09/2023 URINA LYSIS , COMPL ETE W/REF KATLYN TO CULTU RE RBC NONE SEEN /hpf < or = 2 normal Not Available [facility] [address], [address], 02/09/2023 13:32:59 02/04/20 23 02/09/2023 URINA LYSIS , COMPL ETE W/REF KATLYN TO CULTU RE squamous epithelial cells NONE SEEN /hpf < or = 5 normal Not Available [address], [address], 02/09/2023 13:32:59 02/04/20 23 02/09/2023 URINA LYSIS , COMPL ETE W/REF KATLYN TO CULTU RE bacteria NONE SEEN /hpf none seen normal Not Available [address], [address], 02/09/2023 13:32:59 02/04/20 23 02/09/2023 URINA LYSIS , COMPL ETE W/REF KATLYN TO CULTU RE hyaline cast NONE SEEN /lpf none seen normal Not Available [address], [address], 02/09/2023 13:32:59 02/04/20 23 02/09/2023 URINA LYSIS , COMPL ETE W/REF KATLYN TO CULTU RE note This urine was ebony zed for the prese nce of WBC, RBC, bacte bret, casts , and other forme d eleme nts. Only those eleme nts seen were repor kim. Not Available [address], [address], 02/09/2023 13:32:59 02/04/2002/09/2023 REFLE XIVE URINE CULTU RE reflexive urine culture NO CULTU RE INDIC ATED Not Available [address], [address], 02/09/2023 13:32:59 02/04/20 23 02/09/2023 TSH TSH 2.08 mIU/L 0.40-4 .50 normal Not Available [address], [address], 02/09/2023 13:33:00 02/04/20 23 02/09/2023 PSA, TOTAL [...] This test was perfo rmed using the [employer] ns chemi lumin escen t metho d. Value s obtai sonal from diffe rent assay metho ds canno t be used inter mcknight eably . PSA level s, regar dless of value , shoul d not be inter prete d as absol [place] evide nce of the prese nce or absen ce of disea se. Not Available [facility] [address] [place], [address], 02/09/2023 13:33:00 02/04/20 23 02/09/2023 HEMOG LOBIN A1C hemoglobin A1C 5.2 %_of_ [...] ntly, no conse nsus exist s yobani brown use of hemog lobin A1c for diagn [...] nolasco refer to https ://ed ucati on.qu estConnect2me. com/f aq/FA Q165 (This link is being provi ded for infor patty nal/e ducat ional purpo ses only. ) (Note ) This test was devel oped and its ebony tical perfo rmanc e henrique cteri stics have been deter mined by [employer]. It has not been clear ed or appro april by the FDA. This assay has been valid ated pursu ant to the CLIA regul ation s and is used for clini shira purpo ses. Not Available [facility] [address] [place], [address], 02/09/2023 13:33:01 02/04/20 23 02/09/2023 TESTO STERO NE, FREE (DIAL YSIS) AND TOTAL ,MS testosterone , free 47 pg/mL 35.0-1 55.0 (Note ) This test was devel oped and its ebony tical perfo rmanc e hernique cteri stics have been deter mined by [employer]. It has not been clear ed or appro april by the FDA. This assay has been valid ated pursu ant to the CLIA regul ation s and is used for clini shira purpo ses. CORA med fusio n [address] [facility] [address] [facility] [address] [phone] Lopez sawyer MD Not Available [facility] [address] [place], [address], 02/09/2023 13:33:01 02/04/20 23 02/09/2023 SALMO DILIP /SHIG RACHEL CULT, CAMPY EIA AND SHIGA TOXIN W/RFL E. COLI O157 CULT campylobacte r spp. Ag,EIA SEE NOTE CAMPY LOBAC TER SPP. AG,EI A Micro Numbe r: [id number] Test Statu s: Final Speci men Sourc e: Stool Speci men Quali ty: Adequ ate Campy Ag Resul t: Not Detec kim Refer ence Range : Not Detec kim Not Available [address] [address] [place], [address], 02/09/2023 13:33:02 02/04/20 23 02/09/2023 SALMO DILIP /SHIG RACHEL CULT, CAMPY EIA AND SHIGA TOXIN W/RFL E. COLI O157 CULT shiga toxins, EIA w/rfl to E.coli O157 culture SEE NOTE SHIGA TOXIN S, EIA W/RFL TO E.COL I O157 CULTU RE Micro Numbe r: [id number] Test Statu s: Final Speci men Sourc e: Stool Speci men Quali ty: Adequ ate Shiga Toxin : Not Detec kim Refer ence Range : Not Detec kim Not Available [address], [address], 02/09/2023 13:33:02 02/04/20 23 02/09/2023 SALMO DILIP /SHIG RACHEL CULT, CAMPY EIA AND SHIGA TOXIN W/RFL E. COLI O157 CULT salmonella and shigella, culture SEE NOTE SALMO DILIP AND SHIGE LLA, CULTU RE Micro Numbe r: [id number] Test Statu s: Final Speci men Sourc e: Stool Speci men Quali ty: Adequ ate Resul t: No Salmo dilip or Shige lla isola kim Not Available [address] [address] [place], [address], 02/09/2023 13:33:02 02/04/20 23 02/09/2023 FECAL LEUKO CYTE STAIN fecal leukocyte stain SEE NOTE FECAL LEUKO CYTE STAIN Micro Numbe r: [id number] Test Statu s: Final Speci men Sourc e: Stool Speci men Quali ty: Adequ ate Fecal Leuko cyte: Not Detec kim Refer ence Range : Not Detec kim Not Available [facility] [address] [address] [place], [address], 02/09/2023 13:33:03 02/04/20 23 02/09/2023 GIARD IA AG, EIA, STOOL giardia Ag, EIA, stool SEE NOTE GIARD IA AG, EIA, STOOL Micro Numbe r: [id number] Test Statu s: Final Speci men [...] itic infec tion. Not Available [facility] [address] [address] [place], [address], 02/09/2023 13:33:04 02/04/20 23 02/09/2023 OVA AND MAURICIO ITES, CONC AND PERM SMEAR ova and parasites, conc and perm smear SEE NOTE OVA AND MAURICIO ITES, CONC AND PERM SMEAR Micro Numbe r: [id number] Test Statu s: Final Speci men [...] mauricio itic infec tion. For addit ional raminr jessica nolasco refer to https ://ed jasper on.qu jayy KISS[employer]. TradingView/f aq/FA Q203 (This link is being provi ded for infor patty oliver/ yaneth marte l purpo ses only. ) Not Available [facility] [address] [address] [place], [address], 02/09/2023 13:33:04 04/21/20 23 04/22/2023 HEPAT IC FUNCT ION PANEL protein, total 7.0 g/dL 6.1-8. 1 normal Not Available [address], [address], 04/22/2023 03:38:21 04/21/20 23 04/22/2023 HEPAT IC FUNCT ION PANEL albumin 4.3 g/dL 3.6-5. 1 normal Not Available [address], [address], 04/22/2023 03:38:21 04/21/20 23 04/22/2023 HEPAT IC FUNCT ION PANEL globulin 2.7 g/dL_ (calc ) 1.9-3. 7 normal Not Available [address], [address], 04/22/2023 03:38:21 04/21/20 23 04/22/2023 HEPAT IC FUNCT ION PANEL albumin/glob ulin ratio 1.6 (calc ) 1.0-2. 5 normal Not Available [address], [address], 04/22/2023 03:38:21 04/21/20 23 04/22/2023 HEPAT IC FUNCT ION PANEL bilirubin, total 1.4 mg/dL 0.2-1. 2 high Not Available [address], [address], 04/22/2023 03:38:21 04/21/20 23 04/22/2023 HEPAT IC FUNCT ION PANEL bilirubin, direct 0.3 mg/dL < or = 0.2 high Not Available [address], [address], 04/22/2023 03:38:21 04/21/20 23 04/22/2023 HEPAT IC FUNCT ION PANEL bilirubin, indirect 1.1 mg/dL _(shira c) 0.2-1. 2 normal Not Available [facility] [address], [address], 04/22/2023 03:38:21 04/21/20 23 04/22/2023 HEPAT IC FUNCT ION PANEL alkaline phosphatase 156 U/L 35-144 high Not Available [facility] [employer] [address], [address], 04/22/2023 03:38:21 04/21/20 23 04/22/2023 HEPAT IC FUNCT ION PANEL AST 68 U/L 10-35 high Not Available [address], [address], 04/22/2023 03:38:21 04/21/20 23 04/22/2023 HEPAT IC FUNCT ION PANEL ALT 46 U/L 9-46 normal Not Available [facility] [address], [address], 04/22/2023 03:38:21 04/21/20 23 04/22/2023 CBC (INCL UDES DIFF/ PLT) white blood cell count 5.7 thous and/u L 3.8-10 .8 normal Not Available [facility] [address], [address], 04/22/2023 03:38:23 04/21/20 23 04/22/2023 CBC (INCL UDES DIFF/ PLT) red blood cell count 5.16 lizzy on/uL 4.20-5 .80 normal Not Available [facility] [address], [address], 04/22/2023 03:38:23 04/21/20 23 04/22/2023 CBC (INCL UDES DIFF/ PLT) hemoglobin 16.6 g/dL 13.2-1 7.1 normal Not Available [facility] [address], [address], 04/22/2023 03:38:23 04/21/20 23 04/22/2023 CBC (INCL UDES DIFF/ PLT) hematocrit 48.0 % 38.5-5 0.0 normal Not Available [address], [address], 04/22/2023 03:38:23 04/21/20 23 04/22/2023 CBC (INCL UDES DIFF/ PLT) MCV 93.0 fL 80.0-1 00.0 normal Not Available [address], [address], 04/22/2023 03:38:23 04/21/20 23 04/22/2023 CBC (INCL UDES DIFF/ PLT) MCH 32.2 pg 27.0-3 3.0 normal Not Available [address], [address], 04/22/2023 03:38:23 04/21/20 23 04/22/2023 CBC (INCL UDES DIFF/ PLT) MCHC 34.6 g/dL 32.0-3 6.0 normal Not Available [address], [address], 04/22/2023 03:38:23 04/21/20 23 04/22/2023 CBC (INCL UDES DIFF/ PLT) RDW 13.2 % 11.0-1 5.0 normal Not Available [address], [address], 04/22/2023 03:38:23 04/21/20 23 04/22/2023 CBC (INCL UDES DIFF/ PLT) platelet count 146 thous and/u L 140-40 0 normal Not Available [address], [address], 04/22/2023 03:38:23 04/21/20 23 04/22/2023 CBC (INCL UDES DIFF/ PLT) MPV 11.2 fL 7.5-12 .5 normal Not Available [address], [address], 04/22/2023 03:38:23 04/21/20 23 04/22/2023 CBC (INCL UDES DIFF/ PLT) absolute neutrophils 3705 cells /uL 1500-7 800 normal Not Available [address], [address], 04/22/2023 03:38:23 04/21/20 23 04/22/2023 CBC (INCL UDES DIFF/ PLT) absolute lymphocytes 1391 cells /uL 850-39 00 normal Not Available [address], [address], 04/22/2023 03:38:23 04/21/20 23 04/22/2023 CBC (INCL UDES DIFF/ PLT) absolute monocytes 388 cells /uL 200-95 0 normal Not Available [address], [address], 04/22/2023 03:38:23 04/21/20 23 04/22/2023 CBC (INCL UDES DIFF/ PLT) absolute eosinophils 148 cells /uL 15-500 normal Not Available [address], [address], 04/22/2023 03:38:23 04/21/20 23 04/22/2023 CBC (INCL UDES DIFF/ PLT) absolute basophils 68 cells /uL 0-200 normal Not Available [address], [address], 04/22/2023 03:38:23 04/21/20 23 04/22/2023 CBC (INCL UDES DIFF/ PLT) neutrophils 65 % normal Not Available [address], [address], 04/22/2023 03:38:23 04/21/20 23 04/22/2023 CBC (INCL UDES DIFF/ PLT) lymphocytes 24.4 % normal Not Available [address], [address], 04/22/2023 03:38:23 04/21/20 23 04/22/2023 CBC (INCL UDES DIFF/ PLT) monocytes 6.8 % normal Not Available [address], [address], 04/22/2023 03:38:23 04/21/20 23 04/22/2023 CBC (INCL UDES DIFF/ PLT) eosinophils 2.6 % normal Not Available [facility] [address], [address], 04/22/2023 03:38:23 04/21/20 23 04/22/2023 CBC (INCL UDES DIFF/ PLT) basophils 1.2 % normal Not Available [address], [address], 04/22/2023 03:38:23 05/28/20 22 05/28/2022 imagi ng/di agnos tic resul t No observ ation record ed. [id number], [place], [address], 08/17/2022 16:13:36 05/30/20 22 05/30/2022 imagi ng/di agnos tic resul t No observ ation record ed. [id number] [id number] [facility] [address], [place], [address], 08/17/2022 16:13:36 10/21/19 23 10/14/2022 cardi ac monit or No observ ation record ed. [email or web address] [facility] [address] [facility] [address], [place], [address], 11/22/2022 16:50:53 04/27/20 23 04/27/2023 US, abdom en No observ ation record ed. [email or web address] [address], [place], [address], 06/07/2023 12:42:14 06/06/20 23 06/05/2023 MRI, abdom en, w/wo contr ast No observ ation record ed. [address], [place], [address], 06/07/2023 12:42:33 09/14/19 24 09/14/2023 US, abdom en No observ ation record ed. [address], [place], [address], 11/03/2023 14:23:57 11/07/19 24 11/06/2023 MRI, abdom en, w/wo contr ast No observ ation record ed. [address], [place], [address], 11/07/2023 12:41:43 07/27/19 25 07/27/2024 imagi ng/di agnos tic resul t No observ ation record ed. [facility] [address] [place], [address], 07/27/2024 15:11:08 Result Notes None recorded. Problems Name Problem SNOMED Code Status Onset Date Resolution Date Notes Provider Name and Address Organization Details Recorded Time Hypercholest erolemia 57147778 Active 2019 Not Available [facility] 3 16:12:26 Hypertensive disorder 29648529 Active 2019 Not Available [facility] 3 16:12:26 Acid reflux 459395582 Active 2019 Not Available [facility] 3 16:12:26 Diarrhea 02932497 Active 2022 Marta Fox MD [address] [facility], [facility] [address], [place], [address] , [place] [facility] [employer] [facility] 3 14:28:30 Nocturia 216605783 Active 2022 Marta Fox MD [address], [address], [place], [address] , [place] [facility] 3 14:30:43 Insomnia 748394362 Active 2022 Marta Fox MD [address], [address], [place], [address] , [place] [facility] 3 14:38:29 Abdominal pain 96196853 Active 2022 Marta Fox MD [address], [address], [place], [address] , [place] [facility] 3 14:42:32 Erectile dysfunction 706672273 Active 2022 Marta Fox MD [address], [address], [place], [address] , [place] [facility] 3 14:44:24 Hyperlipidem ia 34965571 Active 2022 Marta Fox MD [address], [address], [place], [address] , [place] [facility] [place] [facility] 3 14:47:02 Hyperglycemi a 68213813 Active 2022 Marta Fox MD [address], [place], [address] , [facility] [place] [facility] 3 14:49:13 Acquired trigger finger 1798643 Active 2022 Marta Fox MD [address], [place], [address] , [facility] [place] [facility] 3 15:23:21 Cirrhosis of liver 27963339 Active 2023 Marta Fox MD [address], [place], [address] , [place] [facility] [place] [facility] 4 14:08:52 Esophageal varices 63477709 Active 2023 EDG 06/27/232025 Marta Fox MD [address], [place], [address] , [facility] [employer] [facility] 4 14:09:11 Upper respiratory infection 45794258 Active 2023 LAVERN Baker [address], [place], [address] , [facility] [employer] [facility] 4 16:50:18 Problem Notes None recorded. Procedures Surgical History Date Name Laterality Status Provider Name and Address Organization Details Recorded Time 4 Cardiac Cath completed Roxie Ocampo RN [facility] [employer] [facility] 07/31/2023 08:04:31 4 EGD completed Roxie Ocampo RN [facility] [employer] [facility] 06/27/2023 12:05:34 0 colonoscopy completed Not Available [facility] 08/18/19 16:11:15 Imaging Results None recorded. Procedure Notes None recorded. Medical Equipment None [...] Available Not Available Not Available amoxicillin 875 mg-chris m clavulanate 125 mg tablet TAKE 1 [...] Not Available Not Available Vitals Date Recorded Oxygen saturation Oxygen saturation in Arterial blood by Pulse oximetry Heart rate Body temperature Body weight Systolic And Diastolic Provider Name and Address Organization Details Last Updated DateTime 2 97 % 97 % 71 /min 97.7 [degF] 667064. 47 g 140/80 mm[Hg] Not Available On license of [facility] 3 16:11:57 Date Recorded Body mass index (BMI) Body height Oxygen saturation Oxygen saturation in Arterial blood by Pulse oximetry Heart rate Body temperature Body weight Systolic And Diastolic Provider Name and Address Organization Details Last Updated DateTime 3 32.5 kg/m2 175.26 cm 97 % 97 % 74 /min 96.6 [degF] 24545.3 2 g 122/70 mm[Hg] Not Available [facility] 3 16:11:58 Date Recorded Body height Body mass index (BMI) Body weight Body temperature Heart rate Oxygen saturation Oxygen saturation in Arterial blood by Pulse oximetry Systolic And Diastolic Provider Name and Address Organization Details Last Updated DateTime 3 175.26 cm 33.2 kg/m2 468433. 28 g 97 [degF] 52 /min 96 % 96 % 132/74 mm[Hg] Roxie Ocampo RN [place] [employer] [facility] 3 14:21:07 Date Recorded Body weight Body mass index (BMI) Body height Body temperature Heart rate Respiratory rate Oxygen saturation Oxygen saturation in Arterial blood by Pulse oximetry Pain severity - 0-10 verbal numeric rating [Score] - Reported Systolic And Diastolic Provider Name and Address Organization Details Last Updated DateTime 4 044979. 69 g 33.1 kg/m2 175.26 cm 97.7 [degF] 88 /min 20 /min 98 % 98 % 3 148/90 mm[Hg] Irene Avina RN [place] - [facility] [employer] [facility] 4 16:10:48 Date Recorded Body mass index (BMI) Body height Oxygen saturation Oxygen saturation in Arterial blood by Pulse oximetry Heart rate Body temperature Body weight Systolic And Diastolic Provider Name and Address Organization Details Last Updated DateTime 2 32.6 kg/m2 175.26 cm 92 % 92 % 67 /min 96.8 [degF] 118626. 91 g 122/90 mm[Hg] Not Available [facility] 3 16:11:58 Social History Question Answer Notes LastModified by Organizat ion Details LastModified Time Tobacco Smoking Status Never Smoker Not Available [facility] 08/17/2022 16:11:13 Do You Have An Advance [...] Type Of Diet Are You Following? REGULAR [id number] Information not available 08/17/2022 Have There Been Any Changes To Your Family Or Social Situation? No Information no t available 04/16/2024 Do You Use Insect Repellent Routinely? No Information not available 04/16/2024 Where Do You Live? [facility] Information not available 04/16/2024 Do You Have A Medical Power Of Elevator Adjuster? No Information not available 04/16/2024 How Many [...] Has Tobacco Cessation Counseling Been Provided? No [id number] Information not available 08/17/2022 Have You Recently Traveled Abroad? No Information not available 04/16/2024 Do You Have Any Dietary Restrictions? No [id number] Information not available 08/17/2022 Sex: Unknown Functional Status Question Answer Note LastModified by Organizat ion Details LastModified Time Do you use any illicit or recreational drugs? No [id number] Information not available 08/17/2022 Do you or have you ever used any other forms of tobacco or nicotine? No [id number] Information not available 08/17/2022 What is your level of alcohol consumption? None [id number] Information not available 08/17/2022 Are you currently employed? 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 None Information not available 04/16/2024 Mental Status Question Answer Note LastModified by Organizat ion Details LastModified Time Do you feel stressed (tense, restless, nervous, or anxious, or unable to sleep at night)? [id number] Information not available 08/17/2022 Family History Nothing Reported. Medical History Condition Response INSOMNIA Y HIGH CHOLESTEROL / HYPERLIPIDEMIA Y OBESITY Y Immunizations Vaccine Type Date Status Note Provider Nam e and Address Organization Details Recorded Time COVID-19 Non-US Vaccine, Product Unknown 10/30/2020 completed Not Available [facility] 16:13:34 Tdap 01/07/2020 completed Not Available On license of [facility] 08/17/2022 16:13:34 Past Encounters Encounter ID Performer Location Encounter Start Date Encounter Closed Date Diagnosis/Indication Diagnosis SNOMED-CT Code Diagnosis ICD10 Code Diagnosis Note [id number] Marta Fox MD [facility] Primary Care [facility] [employer] [facility] [address] [facility] [place] [address] 03/15/2021 00:00:00 03/15/2021 20:52:13 [id number] Marta Fox MD [facility] Care [facility] [employer] [facility] [address] [facility] [place] [address] 06/21/2021 00:00:00 06/21/2021 09:11:30 [id number] GEMA Bass [facility] [place] [address] [place] [address] [facility] [place] [address] 06/06/2022 00:00:00 06/06/2022 10:36:55 [id number] Marta Fox MD [facility] Care [facility] [address] [place] [address] [address] [facility] [place] [address] 06/30/2022 00:00:00 07/13/2022 18:48:03 [id number] Marta Fox MD [facility] [address] [place] [address] [facility] [place] [address] 01/25/2023 14:14:39 01/25/2023 15:03:57 Diarrhea 03608910 R19.7 Hypertensive disorder 38 621423 I10 Nocturia 975890616 R35.1 Insomnia 773575146 G47.0 0 sleep hygeinefai led trazodonez olpidem 10 mg po qhs prn, give 8 hours between using med and driving/wo rkingrevie wed how to use properly and potential med s/e Abdominal pain 48187589 R10.9 N40.1 concerned with sudden onset erectile dysfunctio n, urinary symptoms, abd pain and diarrheaCT abd/pelvis needed to evaluate for severely enlarged prostate or colorectal mass Erectile dysfunction 860 644353 F52.21 Hyperlipidemia 57539181 E78.5 Hyperglycemia 88434716 R 73.9 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 Zyrtec, Mucinex DM, increased fluid intake Health Concerns Section Related Observation LastModified by Organization Detai ls LastModified Time None Recorded Concern Status LastModified by Organization Details LastModified Time None Recorded Advance Directives Directive N: Payers Insurance Date Sequence Insurance Name Policy Number Policy Booth Covered Member ID Booth Member ID Guarantor Name 08/05/2024 [facility] Vikas Polk SELF SELF Vikas Polk 08/05/2024 1 [facility] [id number] Vikas Polk [id number] Vikas Polk Notes Date Note Type Note Provider Name and Address Organization Details Recorded Time 01/25/2023 text/html ROS as noted in the HPI Here with a few concerns. bowel movements [...] them unstuck. +pain Marta Fox MD [address] [facility], [facility] [address], [place], [address], [employer] 01/26/2023 09:56:17 04/16/2024 text/html ROS as noted in the HPI Patient presents to clinic with 4-5 days [...] 3 stents in last 2 years, psoriasis. LAVERN Baker [address], [facility] [address], [place], [address], [employer] 04/16/2024 16:52:21
--- OUTSIDE RECORDS SUMMARY | 2025-01-10 11:42 | XMS_ITS | Encounter Summary ---
Author Organization 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
--- OUTSIDE RECORDS SUMMARY | 2025-01-10 11:42 | XMS_ITS | Encounter Summary ---
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
--- OUTSIDE RECORDS SUMMARY | 2025-01-10 11:42 | XMS_ITS | Encounter Summary ---
Author Organization [facility] Address [address] [facility] [address] [place] [address] Phone Care Team Providers Care Block Bolter Mule Operator Name Role Phone Radha Caba MD Primary Care Provider Reason for Referral * Diagnostic Imaging (Routine) - Authorized Specialty Diagnoses / Procedures Referred By Contac t Referred To Contact Diagnoses Hepatic cirrhosis, unspecified hepatic cirrhosis type, unspecified whether ascites present (HCC) Procedures US Abdomen Limited Fransisco Bergman MD [address] [place] [address] Phone: tel: fax: [address] [address] Referral ID Status Reason Start Date Expiration Date V isits Requested Visits Authorized [id number] Authorized 01/09/2025 02/08/2026 1 1 Encounter Details Date Type Department Care Team (Late st Contact Info) Description 01/09/2025 Telephone [facility] Gastroenterology [address] [place] [address] 12th [place] [address] [place] [address] Loni Ocampo Social History Tobacco Use Types Packs/Day Years [...] on file 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 Spoke to pt he understood verbalized apt details. Mailed apt details to pt's home address. ----- Message from Nurse Michelle Little sent at 08/15/2024 8:17 AM SENIOR TECHNICAL RECRUITER ----- Regarding: liver ultrasound in 6 months (jan 2025) liver ultrasound in 6 months (jan 2025) Dx: HCC screening If able, coordinate with ROV in Jan if pt wishes documented in this encounter Plan of Treatment Scheduled Orders Name Type Priority Associated Diagnoses Orde r Schedule US Abdomen Limited Imaging Schedule Kenan Colon Routine (OP Routine) Hepatic cirrhosis, unspecified hepatic cirrhosis type, unspecified whether ascites present (HCC) Expected: 01/09/2025, Expires: 01/09/2026 documented as of this encounter Visit Diagnoses Diagnosis Hepatic cirrhosis, unspecified hepatic cirrhosis type, unspecified whether ascites present (HCC)- Primary documented in this encounter Care Teams Block Bolter Mule Operator Relationship Specialty Start Date End Date Radha Caba MD [address] [facility] [address] [place] [address] PCP - General Family Medicine 12/19/24 documented as of this encounter
--- OUTSIDE RECORDS SUMMARY | 2025-01-10 11:42 | XMS_ITS | Encounter Summary ---
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
--- NOTE | 2025-01-10 11:51 | ECG_ITS ---
Test Date: 2025-01-10 12:06:03 Measurements Intervals Citra Rate: 69 P: -3 RI: 164 QRS: 6 QRSD: 125 T: 5 QT: 407 QTc: 439 Interpretive Statements SINUS RHYTHM POSSIBLE RIGHT VENTRICULAR CONDUCTION DELAY [RSR (QR) IN V1/V2] WARNING: DATA QUALITY MAY AFFECT INTERPRETATION No previous ECG available for comparison Electronically Signed On 01-11-2025 18:37:41 CDT by Elian Montalvo M.D.
[2025-01-10 12:20] LABS: Hematocrit 45.7 % (42.0-52.0); Hemoglobin 14.7 g/dL (14.0-18.0); Immature Granulocyte Percent A 0.3 % (0-0.5); Immature Platelet Fraction Pct 3.0 % (0.9-11.2); Lymphocytes Absolute Auto 1.54 K/mm3 (0.9-3.2); Mean Corpuscular HGB Conc 32.2 g/dl (32-36); Mean Corpuscular Hemoglobin 30.4 pg (26-34); Mean Corpuscular Volume 94.6 fl (80-100); Nucleated Red Blood Cells Absolute Auto 0.000 K/mm3 (0.0-0.012); Nucleated Red Blood Cells Perc 0.0 % (0.0-0.2); Platelet Count Result 116 k/mm3 (150-375); Red Blood Count 4.83 M/mm3 (4.6-6.20); White Blood Count 6.5 K/mm3 (4.5-10.0)
[2025-01-10 12:35] LABS: INR 1.3; Prothrombin Time 16.0 Seconds (11.1-14.7)
[2025-01-10 12:36] LABS: Partial Thromboplastin Time 31.6 Seconds (22.3-36.8)
[2025-01-10 12:53] LABS: Alanine Aminotransferase 37 U/L (6-50); Albumin Level 3.7 g/dL (3.5-5.1); Alkaline Phosphatase 161 U/L (38-126); Anion Gap 5 mmol/L (4-12); Aspartate Amino Transferase 107 U/L (17-59); Bilirubin,Total 1.7 mg/dL (0.2-1.3); Blood Urea Nitrogen 12 mg/dL (9-20); Calcium 9.1 mg/dL (8.4-10.2); Carbon Dioxide 26 mmol/L (22-30); Chloride 107 mmol/L (98-107); Estimated Glomerular Filt Rate > 60; Glucose 103 mg/dL (65-110); Potassium 4.3 mmol/L (3.4-5.0); Sodium 138 mmol/L (137-145); Total Protein 7.1 g/dL (6.3-8.2)
== END 2025-01-10 11:36 | disposition home or self-care (01) ==
LOC: ANHSURGERY 11:39
PROVIDERS: PCP Student in an Organized Health Care Education/Training Program; Visit Provider Surgery
DX: K42.0 Umbilical hernia with obstruction, without gangrene (principal); I25.10 Atherosclerotic heart disease of native coronary artery without angina pectoris; I10 Essential (primary) hypertension; Z01.818 Encounter for other preprocedural examination
CPT/HCPCS: 36415; 80053; 85025; 85055; 85610; 85730; 86850; 86900; 86901; 93005

== ENCOUNTER 2025-01-16 00:33 | Day surgery (SDC) | payer BC, SELFPAY ==
[2025-01-10 09:51] VITALS: BMI 32.5
--- NOTE | 2025-01-10 09:59 | PC.NURSE ---
Report to the Outpatient Waiting Room, entrance under the green pavilion located off [facility], at time _1100_ on date _[id number]_. Planned Procedure Time: _1pm_.? Time changes happen often and if your time is changed the preop area will call you the afternoon before. - You and your visitor will be asked to self-screen and do not enter if you have any COVID symptoms. Please call surgeon if you need to reschedule. - A mask is optional within the hospital at this time. Patients may have clear liquids (water, carbonated beverages, clear teas, apple juice) until 3 hours prior to surgery with a maximum of 20 ounces. - No food from midnight until time of surgery and no smoking, or chewing tobacco (or any form of nicotine). No chewing gum, candy or mints. Take only the following medications with a SIP of water on the morning of surgery: ___Nadolol DO NOT STOP ANY OF YOUR OTHER PRESCRIPTION MEDICATIONS PRIOR TO SURGERY EXCEPT THE FOLLOWING Hold all vitamins and supplements for 3 days per anesthesiologist. Medications to discontinue per physician Date to take last dose Please no make-up, nail setswana, hairspray, perfume, deodorant, or body powder the day of surgery.? No jewelry (including any body piercings) or valuables the day of surgery, leave them at home.? Please take a shower or bath the night before, or the morning of, surgery with an antibacterial soap.? Wear comfortable, loose fitting clothing. - Jewelry must be removed prior to entering the operating room.? Rings and piercings that are not removed may be cut off. - The hospital will not accept responsibility for valuables.? - Please leave all valuables, including medications, at home the day of surgery. If you are going home after surgery, a licensed independent driver must drive you home.? - NO public transportation without another adult if you receive anesthesia. - We recommend that an adult stay with you for 24 hours following discharge. - We also recommend that you do not drive, make important decision, drink alcoholic beverages, or take any drugs that were not prescribed by your health care provider for at least 24 hours after your discharge time. Follow any additional instructions given to you from your surgeon. Telephone instructions given to __John___and asked if any additional questions and then verbalized understanding. Patient advised to call surgeon office or pre surgery nurse liaison [phone] if any additional questions.
--- NOTE | 2025-01-15 16:30 | PM.SD2 ---
Same Day Admit/Disch: HPI History of Present Illness Chief complaint: incarcerated Umb Hernia 1.5cm Narrative: Vikas Polk is a 59 year old male who has noticed a bulge in the umbilical area since the middle of September. He reports that he had a coughing fit and this bulged larger than before. It was painful but he was able to eventually reduce the hernia and relieved the pain. He went to the emergency room November 07 of this year and was found to have a reducible hernia at that time. Patient was then seen in the office and found to have a reducible umbilical hernia, or ventral hernia just above the umbilicus, with a 1.5 cm defect. He is taken to surgery now for robotic laparoscopic repair with mesh. Patient is also known to have cirrhosis, not related to alcohol. He has portal hypertension as well. He has responded well to medical therapy and the cirrhosis is compensated. He also has a history of coronary disease and had coronary stents placed in 2021. [facility] Past Medical History Medical History Portal vein thrombosis Thrombosis of superior mesenteric artery CAD (coronary artery disease) Elevated AFP Elevated ferritin Cirrhosis Hx of adenomatous colonic polyps Nonerosive esophageal reflux disease Epigastric pain Diarrhea Obesity Thrombocytopenia Elevated liver enzymes Encounter for screening colonoscopy Hypertension Essential (primary) hypertension GERD without esophagitis Dyslipidemia Surgical History Surgical History History of esophagogastroduodenoscopy (EGD) Family History Family History Mother Hypertension Grandparent No problems noted. Father Esophageal cancer Other Diabetes mellitus Family history of coronary artery disease Social History Social History Social History: The patient lives with his . His is the durable power senior trial attorney for healthcare. He has 2 children. 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 Lifelong nonsmoker. He denies any marijuana or illicit drugs. Patient has a weekly mixed drink. Code status full code Smoking status: Never smoker Second hand tobacco smoke exposure: No Alcohol intake: former Drinks per week: 3 Alcohol use details: 1 glass of mixed drink w/ Vodka consumed weekly. Substance use: never Substance use type: does not use Lack of Transportation: No Lack of Food: Never True Current Housing: I Have Housing Concerned About Future Housing: No Difficulty Paying Gas/Electric Bills: No Difficulty Paying for Meds: No Currently Unemployed: No Education: High School Diploma/GED Difficulty w/ Childcare or Family Care: No Living arrangements: with family Gender identity (if verbalized by the patient): Male Spiritual care concerns: No Same Day Admit/Disch: Med Pre-admit Medications Home Medications ?Medication ?Instructions ?Recorded ?Confirmed ?Type losartan 50 mg tablet 50 mg PO QAM 05/28/22 01/10/25 History omeprazole 40 mg capsule,delayed 40 mg PO QAM 05/28/22 01/10/25 History release aspirin 81 mg chewable tablet 81 mg PO DAILY@0800 #30 tabs 05/31/22 01/10/25 Rx (Children's Aspirin) atorvastatin 40 mg tablet 40 mg PO QPM #30 tabs 05/31/22 01/10/25 Rx nitroglycerin 0.4 mg sublingual 0.4 mg sublingual Q5MIN PRN Chest 05/31/22 01/10/25 Rx tablet (Nitrostat) Pain #25 tabs trazodone 100 mg tablet 100 mg PO QHS PRN Insomnia 04/11/23 01/10/25 History nadolol 20 mg tablet 20 mg PO .daily #30 tabs 06/27/23 01/10/25 Rx ibuprofen 600 mg tablet 600 mg PO Q6H PRN pain #14 tabs 01/16/25 Rx oxycodone-acetaminophen 5 mg-325 1 - 2 tablet PO Q6H PRN pain #20 01/16/25 Rx mg tablet (Percocet) tabs Review of Systems Review of Systems All systems reviewed & are unremarkable except as noted in HPI and below (HPI) Exam Const: General: comfortable, no acute distress, alert and awake HENMT: Head: normocephalic and atraumatic Mouth: Yes Normal oral and palatal mucosa present Eyes: Conjunctivae: conjunctivae normal Pupils: Equal, round and reactive pupils present EOM: EOMs intact bilaterally Neck: Neck: normal visual inspection, no lymphadenopathy and nontender Resp: Effort & Inspection: normal respiratory effort Auscultation: clear to auscultation bilaterally Cardio: Rate: regular rate Rhythm: regular rhythm Heart sounds: no gallops, no murmurs and no rubs GI: Inspection: non-distended, scaphoid and visible herniation (Umbilical) GI Palp: Yes Soft to palpation, No Tenderness to palpation present (GI), No Hepatomegaly present, No Splenomegaly present, Yes Hernia present umbilical < 3 cm (1.5 cm defect by palpation, reducible hernia), No Palpable mass present and No Ascites present Skin: Lesions: no lesions Rashes: no rashes Neuro: General: no focal motor deficits and CN's II-XI intact bilaterally Cranial nerves: Yes Equal, round and reactive pupils present, Yes Bilaterally intact EOM present, Yes facial symmetry and Yes Midline tongue present Speech: normal speech Motor exam (neuro): 5/5 motor strength present throughout and Motor abnormalities not present Extrem: General: no clubbing, cyanosis or edema and edema Psych: Affect: normal affect Thought process: Normal thought process present Insight: Good insight present (Psych) DS: Summary Time Spent with Patient Time attestation: Total time spent providing and/or coordinating discharge services: DS: Admitting Diagnosis Discharge Date 01/16/2025 Admitting Diagnosis Incarcerated umbilical hernia with 1.5 cm defect-has been reduced. Plan is to proceed with robotic laparoscopic repair with mesh. This procedure, risks, benefits, and alternatives have been discussed. The use of mesh, the length of the surgery, the usual length of recovery have all been discussed. All questions were answered. He understands and wishes to go ahead. Cirrhosis, cryptogenic Portal hypertension GERD Coronary disease with history of coronary stent placement Thrombocytopenia-last platelet count [id number] Discharge Plan Discharge Patient Disposition: Home Discharge Instructions: 1. May shower the day after surgery over incisions. 2. Call office for: -Wound increasingly painful or bleeding -Vomiting -Fever of greater than 101 degrees 3. Expect some blood on dressing and old blood on skin. 4. If no bowel movement for three days, take 1 oz. (30 ml) Milk of Magnesia, if no results, take Fleets enema. 5. No heavy lifting > 15-20 pounds for 2 weeks. 6. No driving for 3 days or while taking narcotic pain medications. 7. Up walking 10-30 minutes three times per day. 8. Resume previous home medications. 9. Follow-up 10-14 days in office for wound check or as previously scheduled. 10. Oral pain medications prescription to be sent home with patient. 11. NUTRITION: Start out by drinking fluids and increase your diet as tolerated. If you experience nausea, try dry toast, crackers, and 7-UP. If nausea or vomiting persists, contact your surgeon?s office. Patient Language: Estonian Stand Alone Forms: General Discharge Instructions Follow-up/Referrals: Hernan Vaughan MD [Physician] - 3 Weeks Discharge Medications: New oxycodone-acetaminophen [Percocet] 5-325 mg tablet 1 - 2 tablet PO Q6H PRN (Reason: pain) Qty: 20 0RF ibuprofen 600 mg tablet 600 mg PO Q6H PRN (Reason: pain) Qty: 14 0RF Continued trazodone 100 mg tablet 100 mg PO QHS PRN (Reason: Insomnia) losartan 50 mg tablet 50 mg PO QAM omeprazole 40 mg capsule,delayed release(DR/EC) 40 mg PO QAM aspirin [Children's Aspirin] 81 mg Tablet,Chewable 81 mg PO DAILY@0800 Qty: 30 0RF atorvastatin 40 mg Tablet 40 mg PO QPM Qty: 30 0RF nitroglycerin [Nitrostat] 0.4 mg Tablet, Sublingual 0.4 mg sublingual Q5MIN PRN (Reason: Chest Pain) Qty: 25 0RF nadolol 20 mg tablet 20 mg PO .daily Qty: 30 11RF
[2025-01-16] VITALS (12 sets, daily range): BP systolic 126–152; BP diastolic 76–90; PULSE 54–70; RESP 12–18; TEMP 35.9–36.1; O2SAT 92–97
--- OUTSIDE RECORDS SUMMARY | 2025-01-16 00:37 | XMS_ITS | Clinical Summary ---
Author Organization [facility] [place] [address] Address [address] [place] [address] Care Team Providers Care Mannequin Sander And Finisher Name Role Phone Radha Caba MD Primary [...] artery disease of n ative artery of [place] heart with stable angina pectoris 05/30/2022 Status post coronary artery stent placement 05/19 Essential hypertension 07/06/2020 Mixed hyperlipidemia 07/06/2020 Resolved Problems Problem Noted Date Diagnosed Date Resolved Date Unstable angina pectoris 07/13/202302/2024 CABALLERO (dyspnea on exertion) 07/06/2020 BMI 34.0-34.9,adult 07/06/2020 10/26/19 24 Encounters Date Type Department Care Team Description 01/09/2025 Telephone [facility] Gastroenterology [address] [place] [address] Medicine [facility] [place] [address] [place] [address] Loni Ocampo 12/27/2024 Telephone [facility] Gastroenterology [facility] [address] [place] [address] [place] [address] Michelle Beard RN 12/19/2024 3:45 PM CDT Office Visit [facility] Cardiology [address] [facility] [address] [place] [address] Amador Hicks MD Status post coronary artery stent placement (Primary Dx); Coronary artery disease of [place] artery of [place] heart with stable angina pectoris 12/11/2024 Telephone [facility] Gastroenterology [facility] Medicine [facility] [place] [address] [place] [address] Loni Ocampo 11/13/2024 Telephone [facility] Gastroenterology [facility] Medicine [facility] [place] [address] [place] [address] Loni Ocampo from Last 3 Months Immunizations [...] on file 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 Gender Identity Not on file Sexual Orientation Not on file Obstetrics History Last Filed Vital Signs Vital Sign Reading Time Taken Comments Blood Pressure 110/74 12/19/2024 3:45 PM CDT Pulse 83 12/19/2024 3:45 PM CDT Temperature 36.6 C (97.8 F) 07/28/2023 12:49 PM REHABILITATION THERAPY TECHNICIAN Respiratory Rate 17 07/28/2023 7:12 PM REHABILITATION THERAPY TECHNICIAN Oxygen Saturation 96% 12/19/2024 3:45 PM CDT [...] 01/06/2030, 06/19/2013 Medical Devices Implanted Type Area Us Marketing Director Device Identifier Shelf Expiration Date Model / Serial / Lot [place] [employer] Joyce Stent Coronary Drug Eluting Rapid Exchange Synergy Xd 3.57g57co [place] Chromium [id number] - S0 - [id number] Implanted:Qty : 1 on 07/28/2023 by Gianluca Licona MD at [facility] Stent Left: Circumflex Coronary Artery [place] [employer] Joyce 03/05/2025 [id number] / 0 / [id number] [employer] Joyce Synergy Xd Monorail 2.5mm 28mm 144cm Delivery System 1 Access [id number] - S0 - [id number] Implanted:Qty : 1 on 07/28/2023 by Gianluca Licona MD at [facility] Stent Left: Circumflex Coronary Artery [employer] Joyce 01/27/2024 [id number] / 0 / [id number] Bob Vascular Device Clsr Perclose Prostyle Sut-Mediatd Closure-Repai r Sys 19889-88 - S0 - [id number] Implanted:Qty : 1 on 07/28/2023 by Gianluca Licona MD at [facility] Vascular Closure Device Right: Femoral Bob Vascular 04/18/2025 [id number] / 0 / [id number] Insurance [facility] ACCESS CHOICE ANTHEM ACCESS CHOICE Advance Directives For more information, please contact: [phone] * Full Code (Latest Code Status on File) Date Activated Date Inactivated Comments 07/28/2023 4:46 PM 07/29/2023 12:06 AM Care Teams Mannequin Sander And Finisher Relationship Specialty Start Date End Date Radha Caba MD [address] [facility] [address] [place] [address] PCP - General Family Medicine 12/19/24
--- OUTSIDE RECORDS SUMMARY | 2025-01-16 00:37 | XMS_ITS | Referral Summary ---
Author Organization [facility] [place] [address] [place] [address] [address] [place] [address] Care Team Providers Care Workers' Compensation Magistrate Name Role Phone Radha Caba MD Primary Care Provider Encounters Date Type Department Care Team Description 01/09/2025 Telephone [facility] Gastroenterology [address] [facility] Advanced Medicine 12th [place] [address] [place] [address] Loni Ocampo 12/27/2024 Telephone [facility] Gastroenterology [address] [facility] Medicine [facility] [place] [address] [place] [address] Michelle Beard RN 12/19/2024 3:45 PM CDT Office Visit [facility] Cardiology [address] [facility] [address] [place] [address] Amador Hicks MD Status post coronary artery stent placement (Primary Dx); Coronary artery disease of [place] artery of [place] heart with stable angina pectoris 12/11/2024 Telephone [facility] Gastroenterology [address] [facility] Medicine 12th [place] [address] [place] [address] Loni Ocampo 11/13/2024 Telephone [facility] Gastroenterology [address] [facility] Medicine 12th [place] [address] [place] [address] Loni Ocampo from Last 3 Months Allergies [...] artery disease of n ative artery of [place] heart with stable angina pectoris 05/30/2022 Status [...] on file 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 Gender Identity Not on file Sexual Orientation Not on file Last Filed Vital Signs Vital Sign Reading Time Taken Comments Blood Pressure 110/74 12/19/2024 3:45 PM CDT Pulse 83 12/19/2024 3:45 PM CDT Temperature 36.6 C (97.8 F) 07/28/2023 12:49 PM ROUTE JUMPER Respiratory Rate 17 07/28/2023 7:12 PM ROUTE JUMPER Oxygen Saturation 96% 12/19/2024 3:45 PM CDT Inhaled Oxygen Concentration - - Weight 101.6 kg (224 lb) 12/19/2024 3:45 PM CDT Height 175.3 cm (5' 9) 12/19/2024 3:45 PM CDT Body Mass Index 33.08 12/19/2024 3:45 PM CDT Plan of Treatment Not on file Medical Devices Implanted Type Area City Letter Carrier Device Identifier Shelf Expiration Date Model / Serial / Lot Devtap Joyce Stent Coronary Drug Eluting Rapid Exchange Synergy Xd 3.38m23lb [place] Chromium [id number] - S0 - [id number] Implanted:Qty : 1 on 07/28/2023 by Gianluca Licona MD at [facility] Stent Left: Circumflex Coronary Artery [place] [employer] Joyce 03/05/2025 [id number] / 0 / [id number] [place] [employer] Joyce Synergy Xd Monorail 2.5mm 28mm 144cm Delivery System 1 Access [id number] - S0 - [id number] Implanted:Qty : 1 on 07/28/2023 by Gianluca Licona MD at [facility] Stent Left: Circumflex Coronary Artery [place] [employer] Joyce 01/27/2024 [id number] / 0 / [id number] Bob Vascular Device Clsr Perclose Prostyle Sut-Mediatd Closure-Repai r Sys 30956-51 - S0 - [id number] Implanted:Qty : 1 on 07/28/2023 by Gianluca Licona MD at [facility] Vascular Closure Device Right: Femoral Bob Vascular 04/18/2025 [id number] / 0 / [id number] Insurance [employer] ACCESS CHOICE Live Shuttle CHOICE Member Subscriber Plan / Payer ( fective 2019-Present) Name:Vikas Polk Relation to Subscriber:Self Name:Vikas Polk Payer ID:[id number] (NAIC) Type:Primo1D Address: [address] [place] [id number] Advance Directives For more information, please contact: [phone] * Full Code (Latest Code Status on File) Date Activated Date Inactivated Comments 07/28/2023 4:46 PM 07/29/2023 12:06 AM Care Teams Workers' Compensation Magistrate Relationship Specialty Start Date End Date Radha Caba MD [address] [facility] [address] [place] [address] PCP - General Family Medicine 12/19/24
--- OUTSIDE RECORDS SUMMARY | 2025-01-16 00:37 | XMS_ITS | Encounter Summary ---
Author Organization 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 file Not on file Not on file documented as of this encounter Plan of Treatment Upcoming Encounters Date Type Department Care Team (Late st Contact Info) Description 10/24/2025 7:50 AM CDT Office Visit [facility] Family Medicine - [place] [address] [place] [address] Radha Caba MD [address] [place], [place] [id number] documented as of this encounter Procedures Procedure Name Priority Date/Time Associated Diagnosis Comments OUTSIDE PT/INR (SCAN ORDER) 01/10/2025 OUTSIDE LAB (SCAN ORDER) 01/10/2025 OUTSIDE LAB (SCAN ORDER) 01/10/2025 OUTSIDE LAB (SCAN ORDER) 01/10/2025 documented in this encounter Results * OUTSIDE PT/INR (SCAN ORDER) (01/10/2025) 01/10/2025 us Doc [facility] Scanned SCANNING Final Resu lt * OUTSIDE LAB (SCAN ORDER) (01/10/2025) 01/10/2025 [employer] Doc Med Group Scanned SCANNING Final Resu lt * OUTSIDE LAB (SCAN ORDER) (01/10/2025) 01/10/2025 [employer] Doc Med Group Scanned SCANNING Final Resu lt * OUTSIDE LAB (SCAN ORDER) (01/10/2025) 01/10/2025 [facility] Scanned SCANNING Final Resu lt documented in this encounter Visit Diagnoses Not on filedocumented in this encounter Additional Health Concerns Assessment Noted Time PHQ-9 Depression Total Score: 1 10/24/19 8:51 AM CDT documented as of this encounter Care Teams Washroom Operator Relationship Specialty Start Date End Date Radha Caba MD [address] [address] PCP - General FAMILY PRACTICE 10/23/24 documented as of this encounter
--- OUTSIDE RECORDS SUMMARY | 2025-01-16 00:37 | XMS_ITS | Encounter Summary ---
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
--- OUTSIDE RECORDS SUMMARY | 2025-01-16 00:37 | XMS_ITS | Clinical Summary ---
Author Organization [facility] Address [address] [place] [address] Care Team Providers Care Personal Lines Insurance Advisor Name Role Phone Radha Caba MD Primary Care Provider + Allergies No [...] x2 circumflex artery. Sees Dr. Hicks at [facility]. Takes aspirin now. Has nitro available. Also [...] Encounters Date Type Department Care Team Description 01/10/2025 Scan [facility] HEALTH INFO SRVCS Scanned, Doc Med Group Lab (SCAN) 12/05/2024 Scan [facility] HEALTH INFO [facility] Scanned, Doc Med Group 11/07/2024 Scan [facility] HE[facility] INFO [facility] Scanned, Doc Med Group 10/30/2024 Scan [facility] HEALTH INFO [facility] Scanned, Doc Med Group 10/24/2024 Results Follow-Up [place] [address] [place] [address] Radha Caba MD VARICELLA ZOSTER IGG, PROSTATE SPECIFIC ANTIGEN,SCREENING 10/23/2024 7:50 AM CDT Office Visit [facility] [address] [place] [address] Radha Caba MD Establish Care 10/23/2024 - 10/23/2024 11:59 PM CDT Hospital Encounter [facility] [address] [place] [address] Discharge Disposition: Home or Self Care (Routine Discharge) 10/23/2024 Orders Only [facility] Family Medicine - [place] [address] [place] [address] eVronica Cotton MA 10/23/2024 Travel from Last 3 [...] cancer Father exposed to shae micals in Brain Aneurysm Mother Heart Disease Sister 1 [...] Start Date 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 Not on file Not [...] Description 10/24/2025 7:50 AM CDT Office Visit [facility] Family Medicine - [place] [address] [place] [phone] Radha Caba MD [address] [place] [address] Health Maintenance Due Date Last Done Comments [...] or Tdap) 01/06/2030 01/07/2020, 06/19/2013 PHQ-2 (Physician [place]) Completed 10/23/2024 Meningococcal B Vaccine Aged Out [...] ORDER) 01/10/2025 OUTSIDE LAB (SCAN ORDER) 01/10/2025 PROSTATE SPECIFIC ANTIGEN,SCREENING Routine 10/23/2024 9:43 AM CDT Special screening for malignant neoplasm of prostate VARICELLA ZOSTER IGG Routine 10/23/2024 9:43 AM CDT Immunity status testing from Last 3 Months Results * OUTSIDE PT/INR (SCAN ORDER) (01/10/2025) 01/10/2025 [facility] Scanned SCANNING Final Resu lt * OUTSIDE LAB (SCAN ORDER) (01/10/2025) Only the most recent of3 resultswithin the time period is included. 01/10/2025 [facility] Scanned SCANNING Final Resu lt * VARICELLA ZOSTER IGG (10/23/2024 9:43 AM CDT) VARICELLA ZOSTER IGG EIA POSITIVE 10/24/2024 11:[address] [facility] Comment:IN THE ABSENCE OF AC KELY SYMPTOMS, A POSITIVE RESULT SUGGESTS PAST IMMUNITY. 10/23/2024 9:43 AM CDT Radha Caba MD LABORATORY Final Re sult [facility] [address] [place] [address], [id number] * PROSTATE SPECIFIC ANTIGEN,SCREENING (10/23/2024 9:43 AM CDT) PSA 0.83 <4.00 NG/ML 10/23/2024 3:30 PM CDT [facility] Comment: ASSAY PERFORMED BY ENZYME IMMUNOASSAY METHODOLOGY USING SIEMENS DIMENSION REAGENT. PATIENT RESULTS DETERMINED BY ASSAYS FROM DIFFERENT MANUFACTURERS AND/OR BY DIFFERENT METHODS MAY NOT BE COMPARABLE. 10/23/2024 9:43 AM CDT us Radha Caba MD LABORATORY Final Re sult [facility] [address] [place] [address], [place] [phone] from Last 3 Months Insurance [facility] Care Teams Personal Lines Insurance Advisor Relationship Specialty Start Date End Date Radha Caba MD [address] [place] [id number] PCP - General FAMILY PRACTICE 10/23/24
--- OUTSIDE RECORDS SUMMARY | 2025-01-16 00:37 | XMS_ITS | Encounter Summary ---
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
--- OUTSIDE RECORDS SUMMARY | 2025-01-16 00:37 | XMS_ITS | Encounter Summary ---
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
[2025-01-16] MEDS: KETOROLAC 15 MG/ML VIAL (*BKC) IV PUSH (12:00)
[2025-01-16] MEDS: ACETAMINOPHEN 500 MG TABLET 1000 MG PO (12:00)
[2025-01-16 12:02] LABS: INR 1.3; Prothrombin Time 16.5 Seconds (11.1-14.7)
--- NOTE | 2025-01-16 13:19 | WPDANESEPPF ---
Anes - Initial Pre Proc Eval Procedure: Operation Date: 01/16/25 13:00 Proposed Procedures p Robotic Repair Incarcerated Umbilical Hernia - Hernan Vaughan MD Date/Time: 01/16/25 13:19 Surgeon: Hernan Vaughan MD Pre Op Diagnosis: incarcerated Umb Hernia 1.5cm Patient Data Age: 59 Gender: M Height: 1.75 m Weight: 100 kg Last Vital Signs Temp 35.9 C L 01/16/25 12:00 Pulse 58 L 01/16/25 12:00 Resp 16 01/16/25 12:00 BP 130/78 01/16/25 12:00 Pulse Ox 96 01/16/25 12:00 O2 Del Method Room Air 01/16/25 12:00 Allergies Allergy/AdvReac Type Severity Reaction Status Date / Time No Known Allergies Allergy Verified 01/16/25 12:22 Home Medications ?Medication ?Instructions ?Recorded ?Confirmed ?Type losartan 50 mg tablet 50 mg PO QAM 05/28/22 01/10/25 History omeprazole 40 mg capsule,delayed 40 mg PO QAM 05/28/22 01/10/25 History release aspirin 81 mg chewable tablet 81 mg PO DAILY@0800 #30 tabs 05/31/22 01/10/25 Rx ([facility] Aspirin) atorvastatin 40 mg tablet 40 mg PO QPM #30 tabs 05/31/22 01/10/25 Rx nitroglycerin 0.4 mg sublingual 0.4 mg sublingual Q5MIN PRN Chest 05/31/22 01/10/25 Rx tablet (Nitrostat) Pain #25 tabs trazodone 100 mg tablet 100 mg PO QHS PRN Insomnia 04/11/23 01/10/25 History nadolol 20 mg tablet 20 mg PO .daily #30 tabs 06/27/23 01/10/25 Rx Laboratory Tests 01/16/25 11:30 PT 16.5 H Seconds (11.1-14.7) INR 1.3 Patient hx anesthesia problems: none Family hx anesthesia problems: none Results Review: All pre-operative results and documents have been reviewed as part of the pre-operative evaluation. [facility] Past Medical History Medical History Portal vein thrombosis Thrombosis of superior mesenteric artery CAD (coronary artery disease) Elevated AFP Elevated ferritin Cirrhosis Hx of adenomatous colonic polyps Nonerosive esophageal reflux disease Epigastric pain Diarrhea Obesity Thrombocytopenia Elevated liver enzymes Encounter for screening colonoscopy Hypertension Essential (primary) hypertension GERD without esophagitis Dyslipidemia Surgical History Surgical History History of esophagogastroduodenoscopy (EGD) Family History Family History Mother Hypertension Grandparent No problems noted. Father Esophageal cancer Other Diabetes mellitus Family history of coronary artery disease Social History Social History Social History: The patient lives with his . His is the durable power conventions reservationist for healthcare. He has 2 children. 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 Lifelong nonsmoker. He denies any marijuana or illicit drugs. Patient has a weekly mixed drink. Code status full code Smoking status: Never smoker Second hand tobacco smoke exposure: No Alcohol intake: former Drinks per week: 3 Alcohol use details: 1 glass of mixed drink w/ Vodka consumed weekly. Substance use: never Substance use type: does not use Lack of Transportation: No Lack of Food: Never True Current Housing: I Have Housing Concerned About Future Housing: No Difficulty Paying Gas/Electric Bills: No Difficulty Paying for Meds: No Currently Unemployed: No Education: High School Diploma/GED Difficulty w/ Childcare or Family Care: No Living arrangements: with family Gender identity (if verbalized by the patient): Male Spiritual care concerns: No Anes - Eval Final PreProcedure Day of Procedure 01/16/25 13:19 Patient weight: obese Heart: regular rate and rhythm Lungs: decreased breath sounds Airway: Mallampati scale Neurological: alert and oriented Last oral intake: >/= 8 hours ASA classification: III Emergent: no Anesthetic plan: proceed Anesthesia type and monitoring: general ETT and standard monitoring Results Review: All pre-operative results and documents have been reviewed as part of the pre-operative evaluation. Informed Consent: The patient's anesthetic plan and its attendant risks and benefits were discussed with the patient/family/POA. Questions were solicited and answers provided to the satisfaction of the patient/family/POA.
--- NOTE | 2025-01-16 13:21 | WPDHPUPDATE1 ---
History and Physical Update Update Date/Time: 01/16/25 13:21 History and Physical has been reviewed, including an updated exam of the patient. There are NO changes in the patient's condition. Risks, benefits, and alternatives have been discussed and questions answered. Patient agrees to proceed with procedure.
[2025-01-16] MEDS: ceFAZolin 2 GM in SODIUM CHLORIDE 0.9% IV 50 ML 100 ML IVPB (13:42)
[2025-01-16] MEDS: BUPIVACAINE/EPINEPHRINE 0.5% 50 ML VIAL 23 ML INFILTRATE (14:33)
[2025-01-16] MEDS: LACTATED RINGERS 1,000 ML 30 ML IV CONT ×2 (16:05→17:03)
[2025-01-16] MEDS: fentaNYL CITRATE INJ (*CRX) 100 MCG/2 ML VIAL 25 MCG IV PUSH ×8 (16:35→17:10)
--- NOTE | 2025-01-16 17:23 | P.OP_ITS ---
Procedure Note - Detailed Date of Procedure 01/16/25 Pre-op Diagnosis incarcerated Umb Hernia 1.5cm Post-op Diagnosis Same (Incarcerated ventral hernias, 8 cm defect size) Procedure Performed Robotic laparoscopic repair with mesh Surgeon Hernan Vaughan MD [employer] Tasneem [facility]ed [facility] Anesthesia General and Local Indications Patient had an episode of severe pain just above the umbilicus. He was found to have a hernia which was able to be reduced. Since then he has had soreness in the area but nothing similar to the pain he experienced when the hernia was incarcerated. Exam in the office suggested a small defect of 1.5 cm. He is taken to surgery now for robotic laparoscopic repair. Findings The patient is hernia was above the umbilicus and was a slit like opening incarcerated with properitoneal fat. It was a 2 cm defect in transverse orientation but only 6 or 7 mm in longitudinal direction. However, there were 2 additional, smaller, slit like defects in the midline fascia both with incarcerated properitoneal fat. There was another defect about 6 cm cephalad to the main or larger hernia as well. This was also a small, slit like defect with incarcerated properitoneal fat. The length from the lower most hernia to the more cephalad hernia was 8 cm. Only the largest of the hernias was closed, the small slit defects were well covered with mesh. Description of Procedure Patient was taken to surgery and induced into general anesthesia. The abdomen is prepped and draped. Trocars were placed in the usual fashion in the left flank. Once the trocars were placed, we brought in the robotic arms and the camera was docked and targeted. We then placed instruments in the 2 working arms and positioned them appropriately. The surgeon went to the robotic console . The larger hernia was able to be seen. It was cephalad to the umbilicus. I started on the left side incising the properitoneal midline fat. This incision was carried cephalad and caudad. I then carefully dissected the properitoneal fat off the midline linea alba. The incarcerated hernia that was the source of his pain was found and the hernia was reduced. Defect size was as listed above. Continued dissection of the properitoneal fat off the anterior abdominal wall revealed the other 3 hernia defects noted above. All of these slit like defects had incarcerated properitoneal fat as well. There was 8 cm between the uppermost hernia and the lower most hernia defect. I continued to clear the properitoneal fat and some of the falciform ligament cephalad from the anterior abdominal wall. This was done in similar fashion towards the caudal aspect of the midline so there would be plenty of room for mesh placement and adherence. The entire peritoneum was hypervascular consistent with the patient's diagnosis of portal hypertension. There were no periumbilical varices. Hemostasis was achieved with cautery but was a bit more difficult to deal with than is typical. 0 Stratafix suture was then introduced. The symptomatic incarcerated, larger hernia was closed in transverse orientation. A 10 x [address] hernia mesh was then rolled and introduced into the abdominal cavity. The needle from the Stratafix suture was then passed through the center of the mesh. The mesh was then slowly drawn up over the Stratafix until it was a adjacent to the anterior abdominal wall. I then used the Stratafix to secure the left side of the mesh to the anterior abdominal wall. Two 0 V lock suture were introduced. Starting on the right side in the midportion of the mesh, I began running 2 0 V lock suture and continued these circumferentially around the entire outer edge of the mesh. This secured the mesh with a mild degree of tension to the anterior abdominal wall and centered over all of the hernia defects. I then used the remainder of the Stratafix to secure the cephalad aspect of the mesh to the abdominal wall surface in the center. I used the residual V lock suture to secure the more posterior aspect of the mesh to the anterior abdominal wall. All looked good. We removed all residual suture and needles. We then removed the instruments and undocked the robot. CO2 was evacuated from the abdominal cavity. The trocars were removed. Skin wounds were closed with subcuticular 4- 0 Monocryl skin suture. The wounds were dressed with Exofin surgical adhesive. Patient was awakened and taken to recovery in good condition. Sponge and needle counts were correct x2. Implants 15 x [address] T hernia mesh Estimated Blood Loss -5 Drains No Packing No Pathology None sent Complications None Condition Stable Disposition PACU [facility] Billing Surgery - Charge Forward: Surgery Billing (Robotic laparoscopic repair incarcerated ventral hernia with 8 cm defect using mesh.)
[2025-01-16] MEDS: oxyCODONE HCL (*CRX) 5 MG TAB IR PO (17:54)
== END 2025-01-16 18:56 | disposition home or self-care (01) ==
PROVIDERS: PCP Student in an Organized Health Care Education/Training Program; Visit Provider Surgery
PROC: (CPT 49594; principal; 2025-01-16 13:00)
DX: K43.6 Other and unspecified ventral hernia with obstruction, without gangrene (principal); I25.10 Atherosclerotic heart disease of native coronary artery without angina pectoris; I10 Essential (primary) hypertension; E78.5 Hyperlipidemia, unspecified; K74.60 Unspecified cirrhosis of liver; K21.9 Gastro-esophageal reflux disease without esophagitis; K74.69 Other cirrhosis of liver; K76.6 Portal hypertension; Z95.5 Presence of coronary angioplasty implant and graft; E66.9 Obesity, unspecified; Z68.32 Body mass index [BMI] 32.0-32.9, adult
CPT/HCPCS: 49594; S2900; 36415; 85610; J0690; A9270; C1781; J1885; J2250; J3010; J7120